=== PATIENT | female | born 1960 | race Caucasian/White ===

== ENCOUNTER → 2019-08-03 | Outpatient (CLI) | payer BC ==
--- NOTE | 2019-08-03 09:17 | US ---
EXAMINATION TYPE: US carotid duplex BILAT DATE OF EXAM: 08/03/2019 COMPARISON: Carotid JUNE 02, 2017 CLINICAL HISTORY: I65.22 Occlusion and stenosis of left carotid alannah. Smoker, left carotid bruit per patient EXAM MEASUREMENTS: RIGHT: Peak Systolic Velocity (PSV) cm/sec ----- Right CCA: 82.9 ----- Right ICA: 93.0 ----- Right ECA: 125.5 ICA/CCA ratio: 1.1 RIGHT: End Diastole cm/sec ----- Right CCA: 27.3 ----- Right ICA: 33.6 ----- Right ECA: 22.0 LEFT: Peak Systolic Velocity (PSV) cm/sec ----- Left CCA: 75.5 ----- Left ICA: 89.9 ----- Left ECA: 95.4 ICA/CCA ratio: 1.1 LEFT: End Diastole cm/sec ----- Left CCA: 21.5 ----- Left ICA: 40.3 ----- Left ECA: 20.5 VERTEBRALS (direction of flow): Right Vertebral: Antegrade; elevated PSV and may be dominant vertebral artery compared to lower flow state in left vertebral artery Left Vertebral: Antegrade Rhythm: Normal Cardoso scale images show mild to moderate peripheral plaque centered at bilateral carotid bulbs. Veloci ty measurements and ratios the visualized portion of the internal carotid arteries is within normal l imits. Incidental finding of a roughly 1.0 cm right thyroid hypoechoic nodule is noted. IMPRESSION: Mild to moderate atherosclerotic changes bilaterally without hemodynamically significant stenosis in either internal carotid artery. Just over 1 cm hypoechoic solid right thyroid nodule. Advise thyroid ultrasound study to better evaluate and characterize if this is not known finding. Criteria for Assigning % of Stenosis / Diameter reduction (Estimation based on the indirect measurements of the internal carotid artery velocities (ICA PSV). 1. Normal (no stenosis)=ICA PSV < 125 cm/s: ratio < 2.0: ICA EDV<40 cm/s. 2. Less than 50% stenosis=ICA PSV < 125 cm/s: ratio < 2.0: ICA EDV<40 cm/s. 3. 50 to 69% stenosis=ICA PSV of 125 to 230 cm/s: ration 2.0 ? 4.0: ICA EDV 40-100 cm/s. 4. Greater than 70% stenosis to near occlusion= ICA PSV > 230 cm/s: ratio > 4.0: ICA EDV > 100 cm/s. 5. Near occlusion= ICA PSV velocities may be low or undetectable: variable ratio and ICA EDV. 6. Total occlusion=unable to detect flow.
== END ==
LOC: RADUSWWP 07:48 → MERGE 09:00
PROVIDERS: ATTEND Family Medicine
DX: I65.22 Occlusion and stenosis of left carotid artery (principal)
CPT/HCPCS: 93880

== ENCOUNTER → 2019-08-03 | Outpatient (CLI) | payer BC ==
--- NOTE | 2019-08-04 10:22 | MM ---
Reason for exam: screening (asymptomatic). Last mammogram was performed 17 years and 9 months ago. History: Patient is postmenopausal and has history of endometrial cancer at age 36. Physical Findings: A clinical breast exam by your physician is recommended on an annual basis and results should be correlated with mammographic findings. MG Screening Mammo w CAD Bilateral CC and MLO view(s) were taken. No prior studies available for comparison. There are scattered fibroglandular densities. There is no discrete abnormality. No significant changes when compared with prior studies. ASSESSMENT: Negative, BI-RAD 1 RECOMMENDATION: Routine screening mammogram of both breasts in 1 year.
== END | disposition home or self-care (01) ==
LOC: RADMAMWWP 07:45 → MERGE 08:00
PROVIDERS: ATTEND Family Medicine
DX: Z12.31 Encounter for screening mammogram for malignant neoplasm of breast (principal)
CPT/HCPCS: 77067

== ENCOUNTER → 2019-08-30 | Outpatient (CLI) | payer BC ==
--- NOTE | 2019-08-30 14:33 | US ---
EXAMINATION TYPE: US thyroid st tissue head/neck DATE OF EXAM: 08/30/2019 COMPARISON: NONE CLINICAL HISTORY: E04.1 Thyroid nodule. thyroid nodules seen on carotid ultrasound GLAND SIZE: Right Lobe: 4.4 x 1.5 x 1.5 cm Overall Parenchyma: homogenous Left Lobe: 4.3 x 1.4 x 1.2 cm Overall Parenchyma: homogeneous Isthmus Thickness: 0.2 cm NODULES RIGHT: # of nodules measured on right: 1 1. 1.0 X 0.8 x 0.6 cm mixed nodule at the mid pole with well-defined margins. This nodule is wider than tall and shows intranodular vascularity. Prior size: No prior LEFT: # of nodules measured on left: 0 ISTHMUS: # of nodules measured in the isthmus: 0 Bilateral neck scanned, no evidence of lymphadenopathy. IMPRESSION: The right 1.0 cm thyroid nodule is redemonstrated as seen on the carotid ultrasound of . This does not yet meet criteria for fine-needle aspiration and follow-up is recommended in 1 2 months. No additional thyroid nodules are seen.
== END | disposition home or self-care (01) ==
LOC: RADUSWWP 12:52
PROVIDERS: ATTEND Family Medicine
DX: E04.1 Nontoxic single thyroid nodule (principal)
CPT/HCPCS: 76536

== ENCOUNTER 2019-08-31 09:52 | Day surgery (SDC) | payer BC ==
[2019-08-27 12:04] VITALS: BMI 25.7
[~2019-08-31 09:52] MED LIST: LACTATED RINGERS 1,000 ML IV SCH; LIDOCAINE 1% 20 ML VIAL (10MG/ML) FOR IV START INTRADERMA PRN
[2019-08-31 10:21] VITALS: RESP 17; TEMP 98
[2019-08-31] MEDS ORDERED: PROPOFOL 10 MG/ML 20 ML VIAL IV ONE (11:04)
--- NOTE | 2019-08-31 11:56 | P.PCN ---
Date of Procedure: 08/31/19 Description of Procedure: BRIEF HISTORY: Patient is a 59-year-old pleasant female presenting for outpatient colonoscopy for evaluation of positive Cologard. No change in bowel habits blood per rectum, abdominal pain, or family history of colon cancer. No prior colonoscopy. PROCEDURE PERFORMED: Colonoscopy with polypectomy. PREOPERATIVE DIAGNOSIS: Positive Cologard, no prior colonoscopy reported. ESTIMATED BLOOD LOSS: Minimal. IV sedation per Anesthesia. PROCEDURE: After informed consent was obtained, the patient, was brought into the endoscopy unit. IV sedation was administered by Anesthesia under continuous monitoring. Digital rectal examination was normal. Initially the Olympus CF-190 flexible video colonoscope was then inserted in the rectum, gradually advanced into the cecum without any difficulty. Careful examination was performed as the scope was gradually being withdrawn. Ileocecal valve and the appendiceal orifice were visualized and appeared normal. Prep was excellent. Mucosa of the cecum, ascending colon, transverse colon, descending colon, sigmoid colon, and rectum appeared normal. Diminutive 3 mm transverse colon polyp removed with cold forcep polypectomy. Pedunculated 1 cm sigmoid polyp removed with hot snare polypectomy. Mild scattered diverticula in the sigmoid colon. Retroflexion was performed in the rectum and no lesions were seen. The patient tolerated the procedure well. IMPRESSION: Diminutive polyp removed with cold forceps from the transverse colon. Pedunculated polyp removed with hot snare polypectomy from sigmoid colon. Mild diverticulosis. RECOMMENDATIONS: Findings of this examination were discussed with the patient in her family. Okay to resume diet. Okay to resume medications. Await pathology from polypectomy. Recommend repeat colonoscopy in 3 years pending pathology from polypectomy.
[2019-08-31 12:16] VITALS: BP 134/82; PULSE 51
== END 2019-08-31 12:24 | disposition home or self-care (01) ==
LOC: ORWHC2ENDO 09:52
PROVIDERS: ATTEND Internal Medicine
DX: D12.3 Benign neoplasm of transverse colon (principal); D12.5 Benign neoplasm of sigmoid colon; K57.30 Diverticulosis of large intestine without perforation or abscess without bleeding; I10 Essential (primary) hypertension; F17.210 Nicotine dependence, cigarettes, uncomplicated; F32.9 Major depressive disorder, single episode, unspecified; K21.9 Gastro-esophageal reflux disease without esophagitis; Z88.1 Allergy status to other antibiotic agents; Z88.0 Allergy status to penicillin; Z88.2 Allergy status to sulfonamides; Z90.710 Acquired absence of both cervix and uterus; Z98.890 Other specified postprocedural states; Z91.040 Latex allergy status; Z79.899 Other long term (current) drug therapy; Z79.2 Long term (current) use of antibiotics; Z85.41 Personal history of malignant neoplasm of cervix uteri
CPT/HCPCS: 88305; 45380; 45385; J2704

== ENCOUNTER → 2020-04-11 | Outpatient (CLI) | payer OTHER ==
--- NOTE | 2020-04-11 14:06 | XR ---
EXAMINATION TYPE: XR wrist complete LT DATE OF EXAM: 04/11/2020 CLINICAL HISTORY: Pain after injury. TECHNIQUE: Frontal, lateral, scaphoid, and oblique images of the left wrist are obtained. COMPARISON: None FINDINGS: There is no acute fracture/dislocation evident in the left wrist. Moderate to severe narro wing with sclerosis and subchondral cystic change along with moderate spurring at base of first metac arpal. The overlying soft tissue appears unremarkable. IMPRESSION: There is no acute fracture or dislocation in the left wrist.
--- NOTE | 2020-04-11 14:22 | XR ---
EXAMINATION TYPE: XR knee complete bilateral DATE OF EXAM: 04/11/2020 CLINICAL HISTORY: Pain after injury. TECHNIQUE: Three views of the bilateral knees are obtained. COMPARISON: None. FINDINGS: There is no acute fracture/dislocation evident in either knee. Mild to moderate tricompart ment joint space loss without significant spurring. No significant joint effusions bilaterally. Poste rior vascular calcification bilaterally. Mild anterior subcutaneous edema with slightly more prominen t edema anterior superior to the left patella superficial to the distal quadriceps tendon. IMPRESSION: There is no acute fracture or dislocation in either knee.
== END | disposition home or self-care (01) ==
LOC: RADXRMAIN 13:34
PROVIDERS: ATTEND Emergency Medicine
DX: S80.02XA Contusion of left knee, initial encounter (principal); S80.01XA Contusion of right knee, initial encounter; S61.502A Unspecified open wound of left wrist, initial encounter

== ENCOUNTER → 2020-05-10 | Outpatient (CLI) | payer OTHER ==
--- NOTE | 2020-05-10 21:54 | MR ---
EXAMINATION TYPE: MR knee RT wo con DATE OF EXAM: 05/10/2020 COMPARISON: Bilateral knee x-rays April 11, 2020 HISTORY: Right knee pain, injury 1 month ago. Contusion per order. TECHNIQUE: Multiplanar, multisequence images of the knee is performed without IV contrast. FINDINGS: MEDIAL MENISCUS: Anterior and posterior horns are intact without tear. LATERAL MENISCUS: Anterior and posterior horns are intact without tear. CRUCIATE LIGAMENTS: The anterior and posterior cruciate ligaments are intact and unremarkable. COLLATERAL LIGAMENTS: The medial collateral ligament and lateral collateral ligament complex are inta ct and unremarkable. EXTENSOR MECHANISM: Visualized quadriceps and patellar tendons are intact. EFFUSION: No significant suprapatellar joint effusion. POPLITEAL CYST: No popliteal/house cyst. TRICOMPARTMENT SPACES: Tricompartment joint space is fairly well-maintained. No significant spurring is seen. CARTILAGE: Tricompartment articular cartilage is preserved. BONE MARROW SIGNAL: No focal abnormal marrow signal is appreciated. OTHER: No additional significant abnormality is appreciated. IMPRESSION: No meniscal or ligamentous tear is seen. Fairly unremarkable study
== END | disposition home or self-care (01) ==
LOC: RADMRIMAIN 20:55
PROVIDERS: ATTEND Emergency Medicine
DX: S80.02XD Contusion of left knee, subsequent encounter (principal); S80.01XD Contusion of right knee, subsequent encounter; S00.83XD Contusion of other part of head, subsequent encounter; S60.212D Contusion of left wrist, subsequent encounter; S40.021D Contusion of right upper arm, subsequent encounter; S61.502D Unspecified open wound of left wrist, subsequent encounter; M54.2 Cervicalgia

== ENCOUNTER → 2020-05-16 | Outpatient (CLI) | payer OTHER ==
--- NOTE | 2020-05-16 10:11 | XR ---
EXAMINATION TYPE: XR Hip Complete RT DATE OF EXAM: 05/16/2020 COMPARISON: NONE HISTORY: 60-year-old female M25.551, fall. Pain TECHNIQUE: 2 views FINDINGS: Mild marginal spurring at the femoral head neck junction especially posteriorly. Overall hip joint sp iker is relatively maintained. No acute fracture, subluxation, dislocation. Multiple pelvic phlebolith s. IMPRESSION: Mild degenerative spurring at the right hip. Relative preservation of hip joint space. No acute osseo us abnormality seen.
== END | disposition home or self-care (01) ==
LOC: RADXRMAIN 09:14
PROVIDERS: ATTEND Emergency Medicine
DX: M25.751 Osteophyte, right hip (principal)
CPT/HCPCS: 73502

== ENCOUNTER → 2020-06-02 | Outpatient (CLI) | payer OTHER ==
--- NOTE | 2020-06-02 11:33 | XR ---
Left wrist HISTORY: Laceration, trauma 4 views of the left wrist, comparison prior exam 04/11/2020 Osteoarthritic changes present at the carpometacarpal joint of the first digit, is hypertrophic powers e loss of joint space, marginal spurring, possible geode formation. No radio opaque foreign body. No fracture or dislocation. IMPRESSION: No acute abnormality.
== END | disposition home or self-care (01) ==
LOC: RADXRMAIN 09:58
PROVIDERS: ATTEND Emergency Medicine
DX: S60.212D Contusion of left wrist, subsequent encounter (principal)

== ENCOUNTER → 2020-08-09 | Outpatient (CLI) | payer BC ==
--- NOTE | 2020-08-09 11:12 | XR ---
EXAMINATION TYPE: XR chest 2V DATE OF EXAM: 08/09/2020 COMPARISON: NONE TECHNIQUE: PA and lateral views submitted. HISTORY: Presurgical FINDINGS: The lungs are clear and there is no pneumothorax, pleural effusion, or focal pneumonia. Heart size normal. No overt failure. Atherosclerotic change of the aorta. Degenerative changes spine. Hyperinfla tion suggests COPD. IMPRESSION: 1. No acute process. Correlate for COPD.
[2020-08-09 11:30] LABS: Basophils % (A) 1 %; Eosinophils # (A) 0.1 k/uL (0-0.7); Eosinophils % (A) 2 %; Lymphocytes # (A) 1.4 k/uL (1.0-4.8); Lymphocytes % (A) 23 %; MCH 33.8 pg (25.0-35.0); MCV 99.2 fL (80.0-100.0); Mean Platelet Volume 8.2; Monocytes # (A) 0.5 k/uL (0-1.0); Monocytes % (A) 8 %; Neutrophils % (A) 64 %; Platelet Count 287 k/uL (150-450); RBC 4.44 m/uL (3.80-5.40); RDW 12.1 % (11.5-15.5); WBC 6.3 k/uL (3.8-10.6)
[2020-08-09 11:47] LABS: Appearance,Urine Clear (Clear); Bilirubin,Urine Negative (Negative); Blood,Urine Negative (Negative); Color,Urine Yellow; Glucose,Urine (UA) Negative (Negative); Ketones,Urine Negative (Negative); Leukocyte Esterase,Urine Negative (Negative); Nitrite,Urine Negative (Negative); Protein,Urine Negative (Negative); Specific Gravity,Urine 1.019 (1.001-1.035); Urobilinogen,Urine <2.0 mg/dL (<2.0)
[2020-08-09 11:52] LABS: INR 0.9 (<1.2); Partial Thromboplastin Time 23.1 sec (22.0-30.0); Prothrombin Time 9.3 sec (9.0-12.0)
== END | disposition home or self-care (01) ==
LOC: LABPAT 10:14
PROVIDERS: ATTEND Orthopaedic Surgery Orthopaedic Surgery of the Spine
DX: Z01.818 Encounter for other preprocedural examination (principal); M48.02 Spinal stenosis, cervical region
CPT/HCPCS: 36415; 71046; 80048; 81003; 85025; 85610; 85730; 86850; 86900; 86901

== ENCOUNTER → 2020-08-09 | Outpatient (CLI) | payer BC ==
--- NOTE | 2020-08-09 12:51 | US ---
EXAMINATION TYPE: US thyroid st tissue head/neck DATE OF EXAM: 08/09/2020 COMPARISON: US CLINICAL HISTORY: E04.1 Thyroid Nodule. GLAND SIZE: Right Lobe: 5.8 x 1.3 x 1.4 cm Overall Parenchyma: homogenous Left Lobe: 5.0 x 1.3 x 1.3 cm Overall Parenchyma: homogeneous Isthmus Thickness: 0.3 cm NODULES RIGHT: # of nodules measured on right: 1 1. 0.6 X 0.4 x 0.7 cm mixed cystic and solid, hypoechoic nodule, which is wider than tall, with smo oth margins, without echogenic foci. Prior size: 1.0 x 0.6 x 0.8 cm LEFT: # of nodules measured on left: 0 ISTHMUS: # of nodules measured in the isthmus: 0 Bilateral neck scanned, no evidence of lymphadenopathy. IMPRESSION: The right-sided nodule has decreased in size 2016 ACR TI-RADS LEVEL: 3 *Highest TI-RADS level nodule reported
--- NOTE | 2020-08-10 11:14 | MM ---
Reason for exam: screening (asymptomatic). Last mammogram was performed 1 year ago. History: Patient is postmenopausal and has history of endometrial cancer at age 36. Physical Findings: A clinical breast exam by your physician is recommended on an annual basis and results should be correlated with mammographic findings. MG Screening Mammo w CAD Bilateral CC and MLO view(s) were taken. Prior study comparison: August 03, 2019, bilateral MG screening mammo w CAD. October 27, 2001, bilateral screening mammogram. There are scattered fibroglandular densities. There is chronic nodularity in the right breast. There is no discrete abnormality. ASSESSMENT: Negative, BI-RAD 1 RECOMMENDATION: Routine screening mammogram of both breasts in 1 year.
== END | disposition home or self-care (01) ==
LOC: RADMAMWWP 09:37
PROVIDERS: ATTEND Family Medicine
DX: Z12.31 Encounter for screening mammogram for malignant neoplasm of breast (principal); E04.1 Nontoxic single thyroid nodule
CPT/HCPCS: 76536; 77067

== ENCOUNTER 2020-08-14 11:32 | Observation (INO) | payer BC, OTHER ==
[2020-08-10 10:19] VITALS: BMI 25.0
[~2020-08-14 11:32] MED LIST changes: +LIDOCAINE 1% (10MG/ML) FOR IV START INTRADERMA PRN; -LIDOCAINE 1% 20 ML VIAL (10MG/ML) FOR IV START INTRADERMA PRN; +ONDANSETRON 4 MG/2 ML VIAL IVP ONE; +ceFAZolin 1,000 MG in SODIUM CHLORIDE 0.9% IRRIGATIO 1,000 ML IRRIGATION PRN
[2020-08-14] MEDS ORDERED: MIDAZOLAM 2 MG/2 ML VIAL ONE (14:39)
[2020-08-14] MEDS ORDERED: SUCCINYLCHOLINE CHLORIDE 100 MG/5 ML SYR IV ONE (14:39)
[2020-08-14] MEDS ORDERED: PHENYLEPHRINE 10 MG/ML VIAL ONE (14:39)
[2020-08-14] MEDS ORDERED: fentaNYL (PF) 50 MCG/ML 2 ML AMP ONE (14:39)
[2020-08-14] MEDS ORDERED: LIDOCAINE 1% INJ 10MG/ML (20 ML MDV) ONE (14:39)
[2020-08-14] MEDS ORDERED: PROPOFOL 10 MG/ML 20 ML VIAL IV ONE (14:39)
[2020-08-14] MEDS ORDERED: HYDROmorphone (PF) 1 MG/ML ONE (14:39)
[2020-08-14] MEDS ORDERED: ePHEDrine SULFATE/0.9% NACL/PF 50 MG/5 ML SYRINGE IV ONE (14:39)
[2020-08-14] MEDS ORDERED: GELATIN SPONGE,ABSORB (LARGE) 1 EACH SPONGE TOPICAL ONE (14:42)
[2020-08-14] MEDS ORDERED: THROMBIN (BOVINE) 5,000 UNIT VIAL TOPICAL ONE (14:42)
[2020-08-14] MEDS ORDERED: LIDOCAINE 0.5%-EPI 1:200,000 50 ML VIAL SQ ONE (14:42)
[2020-08-14] MEDS ORDERED: LACTATED RINGERS 1,000 ML IV ONE ×3 (16:02→17:20)
--- NOTE | 2020-08-14 17:03 | XR ---
EXAMINATION TYPE: XR cervical spine 1V DATE OF EXAM: 08/14/2020 COMPARISON: Cervical spine x-ray earlier today. HISTORY: Neck pain. TECHNIQUE: Cross table lateral view of cervical spine is obtained intraoperatively. FINDINGS: There is new Anterior fusion plate and artificial disc material C3-C6 levels. Alignment is satisfactory at these levels on the intraoperative crosstable lateral view. Slightly oblique position ing noted. Partial visualization of endotracheal tube. IMPRESSION: As above.
[2020-08-14] MEDS ORDERED: ACETAMINOPHEN TAB 325 MG TAB PO PRN (17:06)
[2020-08-14] MEDS: HYDROmorphone 0.5 MG/0.5 ML SYRINGE IVP PRN ×6 (17:15→23:46)
--- NOTE | 2020-08-14 17:23 | P.OP ---
Date of Procedure: 08/14/20 Preoperative Diagnosis: Herniated nucleus pulposis C3 4 C4 5 C5 6, cervical stenosis C3 through C6, neck pain, upper extremity radiculopathy, degenerative disc disease Postoperative Diagnosis: Same Anesthesia: GETA Pathology: none sent Description of Procedure: BRIEF OPERATIVE NOTE Preoperative Diagnosis:Herniated nucleus pulposis C3 4 C4 5 C5 6, cervical stenosis C3 through C6, neck pain, upper extremity radiculopathy, degenerative disc disease Postoperative Diagnosis:Herniated nucleus pulposis C3 4 C4 5 C5 6, cervical stenosis C3 through C6, neck pain, upper extremity radiculopathy, degenerative disc disease Procedure: Anterior cervical decompression and fusion C3 4 C4 5 C5 6 Placement of interbody graft C3 4 C4 5 C5 6 Application of anterior cervical plate C3 4 5 and 6 Surgeon: Dr. Espitia Machinery Rigger: Rich HEATH who is present throughout the entire the case persistence during positioning, dissection, exposure, visualization, and all crucial elements of the case as well as closure. Anesthesia: General anesthesia Estimated blood loss: Approximately 75 mL Complications: None apparent Components implanted: K2M Ida anterior cervical plate system with screws and Vikos interbody allograft bone graft with 1 mL of DBX bone putty Disposition: To recovery room in good stable condition. OPERATIVE INDICATIONS The patient has had long-standing issues in their neck and upper extremities. She has been having worsening pain despite her conservative care. She has radicular symptoms at her right upper extremity which correlated with her findings of disc herniation and stenosis at C3 4 C4 5 and C5 6. Patient has some disc degeneration at C6 7 and some left disc protrusion and we discussed that as well. I felt that her symptoms were most consistent with the levels at C3 4 C4 5 and C5 6 and decided to leave C6 7 intact. The patient has been through conservative treatment. We discussed various treatment options including surgery, and the patient wishes to proceed with surgery We discussed the risk, patient's alternatives and benefits of surgery including but not limited to, risk of bleeding risk of infection, risk of need for further surger y, risk of decreased, loss of motion, muscle function, malunion nonunion, hardware failure, nerve damage, paralysis, heart attack, and . OPERATIVE SUMMARY After discussing all the risks, patient alternatives and benefits at length, the patient elected to proceed with surgical intervention, signed informed consent, and presented for their procedure. The patient was seen and examined in the preoperative holding area and the surgical site was marked. The patient was given antibiotics and brought to the operating room. The patient was positioned on the operating room table in a supine position being careful to pad any bony prominences and pressure points. The patient was sedated and intubated by anesthesia in standard fashion. Once the airway and C- spine were stabilized the patient's arms were padded and tucked at her side, with her shoulders gently taped. The head was placed in a donut pad with the neck in good neutral alignment and position. We were careful to maintain the patient's cervical spine and good neutral alignment and position throughout. The patient was prepped and draped in a normal standard fashion. An appropriate timeout and keystone protocol performed. We were able to proceed with the surgery. The local wound area was infiltrated with local anesthetic. An incision was made transversely approximately 2-1/2 cm over the appropriate levels over C5. Dissection was taken down subcutaneously to the level of the platysma which was split in line with its fibers. Dissection was taken with a carotid approach, with the trachea and esophagus medial and the carotid sheath laterally. We dissected down to the anterior surface of the vertebral bodies. Intraoperative x-ray was taken which showed a marker at the appropriate level at C3 4. With the appropriate level positively confirmed, we were able to proceed with discectomy at the appropriate levels guarding at C3 4 and C4 5 and C5 6. All of the operative levels were exposed appropriately. The patient had all their twitches back, and there was no evidence of recurrent laryngeal issue. The wound was copiously irrigated and suctioned dry as had been done periodically throughout the case. At the appropriate level/levels, I established an annulotomy with an 11 blade scalpel. A discectomy was performed with a combination of pituitary rongeurs, curettes, a high-speed bur, and Kerrison rongeurs. The posterior longitudinal ligament was taken down as were any posterior osteophytes. This gave good central and bilateral foraminal decompression. There is no evidence of any dural tear or leak. As able get excellent central and bilateral foraminal decompression at C3 4 C4 5 and C5 6 The endplates were prepared with a high-speed bur. With the endplates in good parallel position, I was able to size for the appropriate size interbody graft. The wound was irrigated and suctioned dry the graft was prepared and malleted into position. It had good alignment and position with the anterior surface flush with the anterior surface of the vertebral bodies. This was done similarly the appropriate levels at C3 4 C4 5 and C5 6. With the grafts intact, I was able to measure and contour and appropriate sized plate. The plate was positioned at the midline over the appropriate levels from C3 to C6. Screw holes were established with a hand drill and drill guide. Screws were placed in good alignment and position with excellent bony purchase. They were seated under the locking device. The construct was checked and found to be stable. Intraoperative x-ray was taken which showed good alignment and position of the implants at the appropriate levels. There was no evidence of any dural tear or leak. Good hemostasis was maintained. The wound was copiously irrigated and suctioned dry as had been done periodically throughout the case. The platysma was closed with absorbable suture. The subcutaneous tissue was closed. The subcuticular tissue was closed with absorbable suture. The wound was cleaned and dried and dressed appropriately. A soft cervical collar was placed appropriately. The patient was woken up by anesthesia, extubated, transferred back gently to their hospital bed and brought to the recovery room in good stable condition. The patient will be admitted to the hospital for appropriate postoperative care, medical management and monitoring. We will continue to follow them closely about the postoperative course.
[2020-08-14] MEDS ORDERED: ONDANSETRON 4 MG/2 ML VIAL IVP ONE (17:40)
[2020-08-14] MEDS ORDERED: diphenhydrAMINE 50 MG/ML 1 ML VIAL IVP ONE (18:00)
[2020-08-14] MEDS: BENZOCAINE/MENTHOL LOZENG 1 EACH LOZENGE MUCOUS MEM PRN ×2 (20:27→23:30)
[2020-08-14] MEDS ORDERED: ONDANSETRON 4 MG/2 ML VIAL IVP STA (20:34)
[2020-08-14] MEDS: HYDROcodone/APAP 5-325MG 1 EACH TAB PO PRN (21:31)
[2020-08-14] MEDS: PANTOPRAZOLE 40 MG/10 ML VIAL IVP SCH (23:04)
[2020-08-14] MEDS: SODIUM CHLORIDE 0.9% 1,000 ML IV SCH (23:05)
[2020-08-15] MEDS: HYDROcodone/APAP 5-325MG 1 EACH TAB PO PRN ×5 (01:02→23:43)
[2020-08-15] MEDS: BENZOCAINE/MENTHOL LOZENG 1 EACH LOZENGE MUCOUS MEM PRN ×4 (03:06→23:43)
[2020-08-15] MEDS: HYDROmorphone 0.5 MG/0.5 ML SYRINGE IVP PRN ×2 (03:07→21:03)
[2020-08-15] MEDS: ONDANSETRON 4 MG/2 ML VIAL IVP PRN ×3 (04:43→21:15)
[2020-08-15] MEDS ORDERED: HYDROmorphone 0.5 MG/0.5 ML SYRINGE IVP STA (04:55)
[2020-08-15] MEDS ORDERED: ALPRAZolam 0.5 MG TAB PO STA (04:55)
[2020-08-15] MEDS: SODIUM CHLORIDE 0.9% 1,000 ML IV SCH ×2 (06:24→21:05)
[2020-08-15] MEDS ORDERED: DEXAMETHASONE SOD PHOSPHATE 10 MG/ML 1 ML VIAL IV STA (06:39)
[2020-08-15] MEDS ORDERED: KETOROLAC 15 MG/ML 1 ML VIAL IVP STA (06:39)
[2020-08-15] MEDS ORDERED: amLODIPine 5 MG TAB PO SCH (09:00)
[2020-08-15] MEDS ORDERED: LOSARTAN 50 MG TAB PO SCH (09:00)
[2020-08-15] MEDS: PANTOPRAZOLE 40 MG/10 ML VIAL IVP SCH ×2 (09:15→21:03)
[2020-08-15] MEDS: SENNOSIDES-DOCUSATE SODIUM 1 EACH TAB PO SCH (09:16)
--- NOTE | 2020-08-15 10:24 | XR ---
EXAMINATION TYPE: XR cervical spine 1V DATE OF EXAM: 08/14/2020 COMPARISON: NONE HISTORY: Intraoperative localization TECHNIQUE: One view submitted FINDINGS: Metallic surgical instrument lies anterior to the C3-C4 disc space. Multilevel degenerative changes seen. Limited prevertebral soft tissue structures. IMPRESSION: Intraoperative localization
--- NOTE | 2020-08-15 13:09 | P.PN ---
Progress Note - Text Progress Note Date: 08/15/20 Orthopedic Spine History of present illness: Patient is a pleasant 60-year-old female who is seen at the bedside following anterior cervical decompression and fusion performed yesterday. Patient states they are doing ok postsurgically. She was having significant difficulty with reflux and pain control throughout the night last night. She states she did not get any significant sleep. She was having some difficulty with swallowing as well that she feels is improving. She has not eaten much food today. She does have some generalized swelling about her surgical site. She has had some improvement after receiving a dose of dexamethasone. She does admit to continued difficulty with reflux. She is currently drinking milk at the bedside without difficulty. She feels her pain has been improving today as compared to last night. She is not currently complaining of any significant upper extremity radiculopathy symptoms or weakness. She did receive IV dosing of antibiotic medication prior to and after surgical intervention. Patient does have a hi story of recent was in tooth removal is not currently experiencing any difficulty in this regard. Currently does not complain of nausea, vomiting, fever, or chills. Patient is voiding without difficulty. Physical Exam Cervical Fusion: Status post surgical day number 1 Patient is awake, alert, and oriented 3 Vital signs stable Good chest excursion with deep inspiration and expiration Some generalized swelling around the surgical site Dressing over the anterior cervical spine is clean, dry, and intact No significant bruising, erythema, or obvious sign of infection around the surgical site No pain with palpation around the surgical site Clinical Biostatistics Director strength, thumb strength, interosseous strength, biceps strength, triceps strength, and shoulder strength positive sustained bilaterally Patient is able to change positions and perform adequate range of motion of the bilateral upper extremities without difficulty No pain with palpation of the posterior cervical spine or trapezius bilaterally Soft cervical collar at the bedside Assessment: Status post C3-4, C4-5, and C5-6 anterior cervical decompression and fusion Cervical pain Some swelling at the surgical site postoperatively Recent wisdom tooth removal Reflux Hypertension Heart disease Plan: 1. Ambulate as tolerated; work with Physical Therapy to increase mobilization 2. Continue pain control 3. Patient may shower with Optifoam dressing; patient may remove Optifoam in 4 days and shower without a dressing at that time 4. We will plan for consultation with medicine for postoperative medical management for her other medical diagnoses including hypertension, heart disease, and reflux 5. We will continue to follow the patient closely; if the patient's pain continues to improve and she is able to continue improving her drinking and eating without difficulty, we'll plan for discharge home tomorrow, total 2019 Patient can follow-up with Rich Grimaldo PA-C or Dr. Jon Espitia at [facility] in 2-3 weeks following discharge
--- NOTE | 2020-08-15 15:41 | P.CONS ---
History of Present Illness - Reason for Consult Hypertension, gastroesophageal reflux disease - History of Present Illness Patient is a pleasant 60-year-old female admitted for cervical decompression and fusion surgery which was done yesterday. Patient doesn't have any Trinh catheter patient denied any fever chills nausea vomiting. Patient was comparing of acid reflux symptoms much more pronounced and severe last night patient was on Decadron as well as Toradol for pain. Patient did not pass gas yet but does have bowel sounds. Patient pain is well controlled but is comparing of severe sore throat. Patient had an is elevated at this time. Patient does have history of hypertension and is on amlodipine as well as angiotensin receptor avila which is losartan at 150 mg which will be cut down to 100 mg. Patient blood pressure is bit elevated will increase the dose of Norvasc to 10 mg from 5 mg. Review of Systems REVIEW OF SYSTEMS: CONSTITUTIONAL: No fever, no malaise, no fatigue. HEENT: No recent visual problems or hearing problems. Denied any sore throat. CARDIOVASCULAR: No chest pain, orthopnea, PND, no palpitations, no syncope. PULMONARY: No shortness of breath, no cough, no hemoptysis. GASTROINTESTINAL: No diarrhea, no nausea, no vomiting, no abdominal pain. NEUROLOGICAL: No headaches, no weakness, no numbness. HEMATOLOGICAL: Denies any bleeding or petechiae. GENITOURINARY: Denies any burning micturition, frequency, or urgency. MUSCULOSKELETAL/RHEUMATOLOGICAL: Denies any joint pain, swelling, or any muscle pain. ENDOCRINE: Denies any polyuria or polydipsia. The rest of the 14-point review of systems is negative. Past Medical History Past Medical History: Cancer, Hypertension Additional Past Medical History / Comment(s): Hx cervical cancer in her 20's, had abcessed tooth removed 08/07/20, was on Clindamycin, completed today. History of Any Multi-Drug Resistant Organisms: None Reported Past Surgical History: Hysterectomy Additional Past Surgical History / Comment(s): Conization of cervix, deviated septum repair. Past Anesthesia/Blood Transfusion Reactions: No Reported Reaction Smoking Status: Current every day smoker - Past Family History Mother Family Medical History: No Reported History Medications and Allergies Home Medications Medication Instructions Recorded Confirmed Type Olmesartan Medoxomil [Benicar] 40 mg PO QAM 12/27/19 12/14/20 History amLODIPine [Norvasc] 5 mg PO QAM 08/10/20 08/14/20 History Allergies Allergy/AdvReac Type Severity Reaction Status Date / Time amoxicillin trihydrate AdvReac vaginal Verified 08/14/20 17:17 [From Augmentin] infection cephalexin monohydrate AdvReac vaginal Verified 08/14/20 17:17 [From Keflex] infection Penicillins AdvReac vaginal Verified 08/14/20 17:17 infection potassium clavulanate AdvReac vaginal Verified 08/14/20 17:17 [From Augmentin] infection sulfamethoxazole AdvReac vaginal Verified 08/14/20 17:17 [From Bactrim] infection trimethoprim [From Bactrim] AdvReac vaginal Verified 08/14/20 17:17 infection Physical Exam Vitals: Vital Signs Temp Pulse Pulse Resp BP Pulse Ox 08/15/20 12:08 98.2 F 83 14 162/81 95 08/15/20 08:00 98.7 F 67 16 122/77 93 L 08/15/20 02:00 98.3 F 86 18 150/80 93 L 08/14/20 23:15 98.2 F 82 18 154/78 93 L 08/14/20 22:15 98.1 F 77 18 145/79 97 08/14/20 21:15 97.2 F L 67 18 139/75 98 08/14/20 20:45 66 18 137/71 98 08/14/20 20:00 96.8 F L 74 16 118/70 97 08/14/20 19:45 61 16 118/69 96 08/14/20 19:30 65 16 115/68 95 08/14/20 19:00 63 16 128/75 99 08/14/20 18:45 60 16 130/61 99 08/14/20 18:24 61 16 134/63 98 08/14/20 18:09 62 16 123/59 96 08/14/20 17:54 64 16 136/62 99 08/14/20 17:39 59 L 16 139/68 95 08/14/20 17:24 69 16 149/76 97 08/14/20 17:08 97 F L 93 18 142/78 98 Intake and Output 08/15/20 08/15/20 08/15/20 06:59 14:59 22:59 Output Total 200 Balance -200 Output: Urine 200 Other: # Voids 1 PHYSICAL EXAMINATION: GENERAL: The patient is alert and oriented x3, not in any acute distress. Well developed, well nourished. HEENT: Pupils are round and equally reacting to light. EOMI. No scleral icterus. No conjunctival pallor. Normocephalic, atraumatic. No pharyngeal erythema. No thyromegaly. CARDIOVASCULAR: S1 and S2 present. No murmurs, rubs, or gallops. PULMONARY: Chest is clear to auscultation, no wheezing or crackles. ABDOMEN: Soft, nontender, nondistended, normoactive bowel sounds. No palpable organomegaly. MUSCULOSKELETAL: No joint swelling or deformity. EXTREMITIES: No cyanosis, clubbing, or pedal edema. NEUROLOGICAL: Gross neurological examination did not reveal any focal deficits. SKIN: No rashes. Patient has postsurgical packing on the anterior aspect of the neck Assessment and Plan Plan: - gastroesophageal reflux disease secondary to Toradol and Decadron which were discontinued and we'll increase the dose of Protonix to twice a day. We'll use Cepacol for the comfort for her sore throat -Hypertension: Elevated blood pressures, we'll decrease the dose of losartan increase the dose of amlodipine to 5 mg losartan will be decreased to 100 mg daily -Cervical fusion surgery pain management and DVT prophylaxis as per primary service -Depression -Nicotine abuse: Counseling was provided
[2020-08-16] MEDS: HYDROmorphone 0.5 MG/0.5 ML SYRINGE IVP PRN (02:27)
[2020-08-16] MEDS: HYDROcodone/APAP 5-325MG 1 EACH TAB PO PRN ×3 (05:26→16:06)
[2020-08-16] MEDS: SENNOSIDES-DOCUSATE SODIUM 1 EACH TAB PO SCH (08:56)
[2020-08-16] MEDS: PANTOPRAZOLE 40 MG/10 ML VIAL IVP SCH (08:57)
[2020-08-16] MEDS ORDERED: amLODIPine 10 MG TAB PO SCH (09:00)
[2020-08-16] MEDS ORDERED: LOSARTAN 50 MG TAB PO SCH (09:00)
[2020-08-16 09:43] VITALS: RESP 18
[2020-08-16 10:10] LABS: Basophils % (A) 0 %; Eosinophils # (A) 0.1 k/uL (0-0.7); Eosinophils % (A) 1 %; HCT 31.7 % (34.0-46.0); Lymphocytes # (A) 1.8 k/uL (1.0-4.8); Lymphocytes % (A) 20 %; MCH 32.7 pg (25.0-35.0); MCHC 33.3 g/dL (31.0-37.0); Mean Platelet Volume 8.7; Monocytes # (A) 0.5 k/uL (0-1.0); Monocytes % (A) 6 %; Neutrophils # (A) 6.6 k/uL (1.3-7.7); Neutrophils % (A) 72 %; Platelet Count 207 k/uL (150-450); RBC 3.23 m/uL (3.80-5.40); RDW 12.5 % (11.5-15.5); WBC 9.1 k/uL (3.8-10.6)
[2020-08-16 10:20] LABS: African American GFR (CKD) >90 (>60 ml/min/1.73 sqM); Anion Gap 3 mmol/L; Blood Urea Nitrogen 15 mg/dL (7-17); Calcium 8.4 mg/dL (8.4-10.2); Carbon Dioxide 25 mmol/L (22-30); Chloride 110 mmol/L (98-107); Glucose 145 mg/dL (74-99); Non-African American GFR(CKD) >90 (>60 ml/min/1.73 sqM); Potassium 3.7 mmol/L (3.5-5.1); Sodium 138 mmol/L (137-145)
[2020-08-16 10:24] LABS: HGB 10.6 gm/dL (11.4-16.0)
--- NOTE | 2020-08-16 11:52 | P.DS ---
Providers Date of admission: 08/15/20 04:10 Expected date of discharge: 08/16/20 Attending physician: Delbert Espitia Consults: 08/16/20 08:52 Consult Physician Routine Consulting Provider: Evan Lopez Consult Reason/Comments: medical management Do you want consulting provider notified?: Already Contacted Primary care physician: Frank Park - Discharge Diagnosis(es) (1) Cervical stenosis of spinal canal Current Visit: Yes Status: Acute (2) Cervical herniated disc Current Visit: Yes Status: Acute (3) S/P cervical spinal fusion Current Visit: Yes Status: Acute (4) Radiculopathy affecting upper extremity Current Visit: Yes Status: Acute (5) Cervicalgia Current Visit: Yes Status: Acute (6) Degenerative cervical disc Current Visit: Yes Status: Acute (7) Hypertension Current Visit: Yes Status: Acute (8) Acid reflux Current Visit: Yes Status: Acute (9) [place] teeth removed Current Visit: Yes Status: Acute (10) Heart disease Current Visit: Yes Status: Acute Hospital Course: This is a pleasant 60-year-old female who presented with C3-4, C4-5, and C5-6 herniated nucleus pulposus with cervical stenosis, cervicalgia with upper extremity radiculopathy, and cervical degenerative disc disease who failed outpatient conservative therapy. She was admitted for a C3-4, C4-5, and C5-6 anterior cervical decompression and fusion. She had some difficulty with acid reflux overnight following her surgery did not get much sleep. She has been seen by medicine and has been started on Protonix twice a day. She was able to sleep better last night. She has some swelling at her surgical site that has improved as compared to yesterday. She is able to eat all of her food yesterday without significant difficulty. She does admit to some pain with swallowing but is able to swallow without difficulty. She is drinking without difficulty. She is breathing without difficulty. She has been using her incentive spirometer without difficulty. She is not currently complaining of significant cervical pain or upper extremity radiculopathy symptoms. She does feel she will be ready for discharge home today. The patient has continued to improve postoperatively. Condition on day of discharge stable. Patient will be discharged home. Patient was cleared preoperatively for surgery by Dr. Park. Patient currently denies any nausea, vomiting, fever, or chills. Patient is voiding freely without difficulty. Patient may shower Optifoam dressing intact. Patient may remove Optifoam dressing in 3 days and shower without a dressing at that time. Patient should refrain from driving until at least after their first follow-up appointment in the office. Patient should avoid excessive neck flexion, extension, rotation, and lateral sidebending; no overhead lifting; no lifting greater than 10 pounds. MAPS has been reviewed today, 08/16/2020, with an Overall Overdose Risk Score of 190. An "Opiod Start Talking" Form has been signed and placed in the patient's chart. A prescription has been written for [place] 5 mg/325 mg 1 tab every 4 hours as needed for pain, dispense #42. Patient should avoid anti-inflammatory medications over the next 6 weeks postoperatively. Patient may resume other previously prescribed home medications. Patient's other medical diagnoses include acid reflux, hypertension, and heart disease. She also recently had a wisdom tooth removed. Physical Exam on day of discharge: Patient is awake, alert, and oriented 3 Vital signs stable Good chest excursion with deep inspiration and expiration Abdomen soft nontender No signs or symptoms of DVT; no calf pain Full range of motion of the cervical spine with adequate flexion, extension, and bilateral rotation Table Maker strength, thumb strength, interosseous strength, biceps strength, triceps strength, and shoulder strength positive sustained bilaterally Soft cervical collar not currently intact Some swelling around the surgical site which has improved as compared to yesterday No significant pain with palpation around the surgical site Dressing over the surgical site isclean, dry, and intact; no erythema, purulence, or signs of infection No active drainage from the surgical site Procedures: C3-4, C4-5, and C5-6 anterior cervical decompression and fusion Patient Condition at Discharge: Stable Plan - Discharge Summary Discharge Rx Participant: Yes New Discharge Prescriptions: New HYDROcodone/APAP 5-325MG [[place] 5] 1 each PO Q4HR PRN #42 tab PRN Reason: Pain No Action Olmesartan Medoxomil [Benicar] 40 mg PO QAM amLODIPine [Norvasc] 5 mg PO QAM Discharge Medication List Olmesartan Medoxomil [Benicar] 40 mg PO QAM 08/27/19 [History] amLODIPine [Norvasc] 5 mg PO QAM 08/10/20 [History] HYDROcodone/APAP 5-325MG [[place] 5] 1 each PO Q4HR PRN #42 tab 08/16/20 [Rx] Follow up Appointment(s)/Referral(s): Rich Grimaldo, BARBARA [PHYSICIAN [employer] TEAM LEADER] - 2 Weeks (Patient may follow-up with Rich Grimaldo PA-C or Dr. Jon Espitia at [facility] in 2-3 weeks following discharge. ) Activity/Diet/Wound Care/Special Instructions: 1. Patient may shower with Optifoam dressing intact. 2. Patient may remove Optifoam dressing in 4 days and shower without a dressing at that time. 3. Patient may wear soft cervical collar for comfort support as needed. 4. Patient should refrain from driving until at least after their first follow- up appointment in the office. 5. Patient should avoid excessive cervical flexion, extension, and side bending; avoid overhead lifting; no lifting greater than 10 pounds 6. Take medications as prescribed 7. Do not soak in tub Discharge Disposition: HOME SELF-CARE
[2020-08-16] MEDS: ONDANSETRON 4 MG/2 ML VIAL IVP PRN (13:41)
[2020-08-16 14:03] VITALS: BP 115/67; PULSE 58; TEMP 98.2
--- NOTE | 2020-08-16 14:44 | P.PN ---
Subjective Progress Note Date: 08/16/20 Reason for Consult Hypertension, gastroesophageal reflux disease - History of Present Illness Patient is a pleasant 60-year-old female admitted for cervical decompression and fusion surgery which was done yesterday. Patient doesn't have any Trinh fidel ter patient denied any fever chills nausea vomiting. Patient was comparing of acid reflux symptoms much more pronounced and severe last night patient was on Decadron as well as Toradol for pain. Patient did not pass gas yet but does have bowel sounds. Patient pain is well controlled but is comparing of severe sore throat. Patient had an is elevated at this time. Patient does have history of hypertension and is on amlodipine as well as angiotensin receptor avila which is losartan at 150 mg which will be cut down to 100 mg. Patient blood pressure is bit elevated will increase the dose of Norvasc to 10 mg from 5 mg. 08/16/2020 She was seen and evaluated in follow-up with no acute overnight issues. Patient's blood pressure more stable and is maintained on Norvasc 10 mg and losartan was decreased to 100 mg daily and will continue with this. Patient states she has some swelling noted on her neck and sore throat with swallowing although is able to swallow and tolerate food and medications. Patient does not have a neck brace on. Patient states that she has been using her incentive spirometer and reinstructed her to continue using this at least 10 times every hour while awake along with increasing activity as tolerated. Patient states she is passing gas although has not had a bowel movement and is urinating with no difficulties. Review of systems: Constitutional: No reports of fatigue, fever, or chills Cardiovascular: No reports of chest pain or palpitations Respiratory: No reports of shortness of breath or cough GI: No reports of nausea, vomiting, or diarrhea : No reports of dysuria or retention Neurovascular: No reports of weakness or numbness Neck: Reports swelling and feeling of fullness and discomfort when swallowing All medications have been reviewed Objective - Vital Signs Vital signs: Vital Signs Temp 98.3 F 08/16/20 08:20 Pulse 66 08/16/20 08:20 Resp 18 08/16/20 08:20 BP 117/73 08/16/20 08:20 Pulse Ox 96 08/16/20 08:20 Intake & Output 08/15/20 08/16/20 08/16/20 18:59 06:59 18:59 Other: Voiding Method Toilet # Voids 1 1 - Exam GENERAL: The patient is alert and oriented x3, not in any acute distress. Well developed, well nourished. HEENT: Pupils are round and equally reacting to light. EOMI. No scleral icterus. No conjunctival pallor. Normocephalic, atraumatic. No pharyngeal erythema. No thyromegaly. CARDIOVASCULAR: S1 and S2 present. No murmurs, rubs, or gallops. PULMONARY: Chest is clear to auscultation, no wheezing or crackles. ABDOMEN: Soft, nontender, nondistended, normoactive bowel sounds. No palpable organomegaly. MUSCULOSKELETAL: No joint swelling or deformity. EXTREMITIES: No cyanosis, clubbing, or pedal edema. NEUROLOGICAL: Gross neurological examination did not reveal any focal deficits. SKIN: No rashes. Patient has postsurgical dressing noted on the anterior aspect of the neck that is dry and intact - Labs CBC & Chem 7: 08/16/20 09:30 08/16/20 09:30 Assessment and Plan Assessment: -gastroesophageal reflux disease secondary to Toradol and Decadron which were discontinued and we'll increase the dose of Protonix to twice a day. We'll use Cepacol for the comfort for her sore throat -Hypertension: Elevated blood pressures, we'll decrease the dose of losartan increase the dose of amlodipine to 10 mg losartan will be decreased to 100 mg daily, will continue with this in the outpatient setting -Cervical fusion surgery pain management and DVT prophylaxis as per primary service -Depression -Nicotine abuse: Counseling was provided Plan: New current medications and continue to monitor blood pressure. Losartan has been decreased to 100 mg and Norvasc increased to 10 mg and will continue with this regimen upon discharge. Current blood pressure 117/73 and heart rate is 66 . Continue with Cepacol lozenges for sore throat. Educated the patient to continue using incentive spirometer at least 10 times every hour while awake. Continue to avoid tobacco use. Will continue to follow along with orthopedic surgery during hospitalization. Further recommendations to follow. Possible discharge today.
== END 2020-08-16 18:42 | disposition home or self-care (01) ==
LOC: OR 11:32 → 6PED 17:16 → OR 08-15 04:10
PROVIDERS: ADMIT Orthopaedic Surgery Orthopaedic Surgery of the Spine; ATTEND Orthopaedic Surgery Orthopaedic Surgery of the Spine
DX: M48.02 Spinal stenosis, cervical region (principal); M50.11 Cervical disc disorder with radiculopathy, high cervical region; M50.122 Cervical disc disorder at C5-C6 level with radiculopathy; K21.9 Gastro-esophageal reflux disease without esophagitis; I10 Essential (primary) hypertension; I51.9 Heart disease, unspecified; J02.9 Acute pharyngitis, unspecified; M50.221 Other cervical disc displacement at C4-C5 level; M50.222 Other cervical disc displacement at C5-C6 level; F17.210 Nicotine dependence, cigarettes, uncomplicated; F32.9 Major depressive disorder, single episode, unspecified; Z79.899 Other long term (current) drug therapy; Z85.41 Personal history of malignant neoplasm of cervix uteri; Z88.0 Allergy status to penicillin; Z88.2 Allergy status to sulfonamides; Z88.1 Allergy status to other antibiotic agents; Z90.710 Acquired absence of both cervix and uterus
CPT/HCPCS: 80048; 85025; 72020; 22551; 22552 ×2; 22845; 20930; G0378 ×2; C1713 ×2; C1762 ×2; J2250; J1200; J1100; J2370; J0690 ×3; J2405 ×3; J2001; J3010; J1170 ×4; J1885; J0330; J2704; C9113 ×3; 86850; 86900; 86901

== ENCOUNTER 2020-08-30 15:12 | Inpatient (IN) | payer BC, OTHER ==
--- NOTE | 2020-08-30 16:04 | ED ---
General Adult HPI - General Chief complaint: Abdominal Pain Stated complaint: Post Op Vomiting,Constipated Source: patient Mode of arrival: wheelchair Limitations: no limitations - History of Present Illness Initial comments: This a 60-year-old female who presents emergency Department complaining of abdominal pain. Patient also states she has been nauseated today and had one e pisode of vomiting after she took milk of magnesia. Patient states she had neck surgery on August 14 and since she's been very constipated. Patient states she hasn't had a bowel movement in days and she hasn't been urinating normally as well. Patient states her lower abdomen and suprapubic region is extremely tender. Patient denies any upper abdominal pain patient denies chest pain difficulty breathing shortest breath per patient denies any fever chills or cough per patient denies any back pain. - Related Data Home Medications Medication Instructions Recorded Confirmed Pantoprazole Sodium [Protonix] 40 mg PO DAILY 08/30/20 08/30/20 Previous Rx's Medication Instructions Recorded Sennosides-Docusate Sodium 1 each PO DAILY PRN #30 tab 08/16/20 [Senokot-S] amLODIPine [Norvasc] 10 mg PO QAM 30 Days #30 tab 08/16/20 Allergies Allergy/AdvReac Type Severity Reaction Status Date / Time losartan Allergy Rash/Hives Verified 08/30/20 17:52 amoxicillin trihydrate AdvReac vaginal Verified 08/30/20 17:52 [From Augmentin] infection cephalexin monohydrate AdvReac vaginal Verified 08/30/20 17:52 [From Keflex] infection lisinopril AdvReac Rash/Hives Verified 08/30/20 17:52 Penicillins AdvReac vaginal Verified 08/30/20 17:52 infection potassium clavulanate AdvReac vaginal Verified 08/30/20 17:52 [From Augmentin] infection sulfamethoxazole AdvReac vaginal Verified 08/30/20 17:52 [From Bactrim] infection trimethoprim [From Bactrim] AdvReac vaginal Verified 08/30/20 17:52 infection Review of Systems ROS Statement: Those systems with pertinent positive or pertinent negative responses have been documented in the HPI. ROS Other: All systems not noted in ROS Statement are negative. Past Medical History Past Medical History: Cancer, Hypertension Additional Past Medical History / Comment(s): Hx cervical cancer in her 20's, had abcessed tooth removed 08/07/20, was on Clindamycin, completed today. History of Any Multi-Drug Resistant Organisms: None Reported Past Surgical History: Hysterectomy Additional Past Surgical History / Comment(s): Conization of cervix, deviated septum repair. Past Anesthesia/Blood Transfusion Reactions: No Reported Reaction Past Psychological History: Anxiety, Depression Smoking Status: Current every day smoker Past Alcohol Use History: None Reported Past Drug Use History: None Reported - Past Family History Mother Family Medical History: No Reported History General Exam - General Exam Comments Initial Comments: GENERAL: Patient is well-developed and well-nourished. Patient is nontoxic and well- hydrated and is in moderate distress. ENT: Neck is soft and supple. No significant lymphadenopathy is noted. Oropharynx is clear. Moist mucous membranes. Neck has full range of motion without eliciting any pain. EYES: The sclera were anicteric and conjunctiva were pink and moist. Extraocular movements were intact and pupils were equal round and reactive to light. Eyelids were unremarkable. PULMONARY: Unlabored respirations. Good breath sounds bilaterally. No audible rales rhonchi or wheezing was noted. CARDIOVASCULAR: There is a regular rate and rhythm without any murmurs gallops or rubs. ABDOMEN: Patient has suprapubic abdominal pain SKIN: Skin is clear with no lesions or rashes and otherwise unremarkable. NEUROLOGIC: Patient is alert and oriented x3. Cranial nerves II through XII are grossly intact. Motor and sensory are also intact. Normal speech, volume and content. Symmetrical smile. MUSCULOSKELETAL: Normal extremities with adequate strength and full range of motion. LYMPHATICS: No significant lymphadenopathy is noted PSYCHIATRIC: Normal psychiatric evaluation. Limitations: no limitations Course Vital Signs 08/30/20 08/30/20 08/30/20 15:14 17:17 18:15 Temperature 98.2 F Pulse Rate 76 76 88 Respiratory 18 20 20 Rate Blood Pressure 100/62 120/55 139/69 O2 Sat by Pulse 96 99 98 Oximetry Medical Decision Making - Medical Decision Making Patient's CAT scan shows Dr. Desir his first colitis. I gave the patient Levaquin and Flagyl. I gave the patient Dilaudid for pain. [facility] the patient I wrote admitting orders I continued the antibiotics on the floor as well as pain medicine. - Lab Data Result diagrams: 08/30/20 16:26 08/30/20 16:26 Lab Results 08/30/20 08/30/20 08/30/20 Range/Units 16:26 16:26 16:42 WBC 17.9 H (3.8-10.6) k/uL RBC 4.73 (3.80-5.40) m/uL Hgb 15.5 D (11.4-16.0) gm/dL Hct 44.6 (34.0-46.0) % MCV 94.3 (80.0-100.0) fL MCH 32.7 (25.0-35.0) pg MCHC 34.7 (31.0-37.0) g/dL RDW 12.0 (11.5-15.5) % Plt Count 516 H D (150-450) k/uL MPV 8.6 Neutrophils % 83 % Lymphocytes % 11 % Monocytes % 5 % Eosinophils % 0 % Basophils % 0 % Neutrophils # 14.8 H (1.3-7.7) k/uL Lymphocytes # 2.0 (1.0-4.8) k/uL Monocytes # 0.9 (0-1.0) k/uL Eosinophils # 0.1 (0-0.7) k/uL Basophils # 0.0 (0-0.2) k/uL Sodium 135 L (137-145) mmol/L Potassium 4.1 (3.5-5.1) mmol/L Chloride 104 (98-107) mmol/L Carbon Dioxide 17 L (22-30) mmol/L Anion Gap 14 mmol/L BUN 33 H (7-17) mg/dL Creatinine 0.87 (0.52-1.04) mg/dL Est GFR (CKD-EPI)AfAm 85 (>60 ml/min/1.73 sqM) Est GFR (CKD-EPI)NonAf 73 (>60 ml/min/1.73 sqM) Glucose 118 H (74-99) mg/dL Calcium 9.6 (8.4-10.2) mg/dL Total Bilirubin 0.9 (0.2-1.3) mg/dL AST 32 (14-36) U/L ALT 13 (4-34) U/L Alkaline Phosphatase 140 H (38-126) U/L Total Protein 6.7 (6.3-8.2) g/dL Albumin 3.9 (3.5-5.0) g/dL Amylase 46 (30-110) U/L Lipase 55 (23-300) U/L Urine Color Yellow Urine Appearance Clear (Clear) Urine pH 6.5 (5.0-8.0) Ur Specific Harmans 1.025 (1.001-1.035) Urine Protein 1+ H (Negative) Urine Glucose (UA) Negative (Negative) Urine Ketones 4+ H (Negative) Urine Blood Negative (Negative) Urine Nitrite Negative (Negative) Urine Bilirubin 1+ H (Negative) Urine Urobilinogen 2.0 (<2.0) mg/dL Ur Leukocyte Esterase Negative (Negative) Urine RBC <1 (0-5) /hpf Urine WBC 1 (0-5) /hpf Ur Squamous Epith Cells <1 (0-4) /hpf Hyaline Casts 3 H (0-2) /lpf Urine Mucus Few H (None) /hpf Disposition Clinical Impression: Diverticulitis Disposition: ADMITTED IP TO THIS [facility] Referrals: Frank Park DO [Primary Care Provider] - 1-2 days Time of Disposition: 19:06
[2020-08-30] MEDS ORDERED: HYDROmorphone 0.5 MG/0.5 ML SYRINGE IVP STA (16:30)
[2020-08-30] MEDS ORDERED: ONDANSETRON 4 MG/2 ML VIAL IVP STA (16:30)
[2020-08-30 16:38] LABS: Basophils % (A) 0 %; Eosinophils # (A) 0.1 k/uL (0-0.7); Eosinophils % (A) 0 %; HCT 44.6 % (34.0-46.0); Lymphocytes % (A) 11 %; MCH 32.7 pg (25.0-35.0); MCHC 34.7 g/dL (31.0-37.0); MCV 94.3 fL (80.0-100.0); Mean Platelet Volume 8.6; Monocytes # (A) 0.9 k/uL (0-1.0); Monocytes % (A) 5 %; Neutrophils # (A) 14.8 k/uL (1.3-7.7); Neutrophils % (A) 83 %; RBC 4.73 m/uL (3.80-5.40); WBC 17.9 k/uL (3.8-10.6)
[2020-08-30 16:56] LABS: Appearance,Urine Clear (Clear); Bilirubin,Urine 1+ (Negative); Blood,Urine Negative (Negative); Color,Urine Yellow; Glucose,Urine (UA) Negative (Negative); Hyaline Casts,Urine 3 /lpf (0-2); Ketones,Urine 4+ (Negative); Leukocyte Esterase,Urine Negative (Negative); Mucus,Urine Few /hpf; Nitrite,Urine Negative (Negative); PH, Urine 6.5 (5.0-8.0); Protein,Urine 1+ (Negative); RBC,Urine <1 /hpf (0-5); Specific Gravity,Urine 1.025 (1.001-1.035); Squamous Epithelial Cell,Urine <1 /hpf (0-4); WBC,Urine 1 /hpf (0-5)
[2020-08-30 16:56] LABS: HGB 15.5 gm/dL (11.4-16.0); Platelet Count 516 k/uL (150-450)
--- NOTE | 2020-08-30 17:13 | XR ---
EXAMINATION TYPE: XR KUB DATE OF EXAM: 08/30/2020 COMPARISON: NONE HISTORY: Abdominal pain TECHNIQUE: 2 views upright FINDINGS: There is no sign of intestinal obstruction or pneumoperitoneum. Fecal pattern is normal. Neena ng bases are clear. There are no pathologic calcifications over the kidneys. IMPRESSION: Nonacute abdomen.
[2020-08-30 17:17] LABS: Albumin 3.9 g/dL (3.5-5.0); Calcium 9.6 mg/dL (8.4-10.2); Total Bilirubin 0.9 mg/dL (0.2-1.3); Total Protein 6.7 g/dL (6.3-8.2)
[2020-08-30 17:19] LABS: Potassium 4.1 mmol/L (3.5-5.1)
--- NOTE | 2020-08-30 17:51 | CT ---
EXAMINATION TYPE: CT abdomen pelvis w con DATE OF EXAM: 08/30/2020 COMPARISON: None HISTORY: Generalized pain with nausea and vomiting CT DLP: 867.9 mGycm Automated exposure control for dose reduction was used. CONTRAST: Performed with IV Contrast, patient injected with 100 mL of Isovue 300. Lung bases are clear of infiltrate. There is no pleural effusion. Heart size is normal. There is no p ericardial effusion. There is small hiatal hernia. Stomach is intact. Gallbladder appears normal. The re is 2 cm area of hypodensity in the right lobe of the liver that could relate to a hemangioma. This appears to show delayed enhancement consistent with meningioma. Spleen is intact. There is no pancreatic mass. The bile ducts are not dilated. There is no adrenal mass. Kidneys show satisfactory contrast opacification. There is no hydronephrosi s. Ureters are not dilated. Abdominal aorta is atheromatous. There is no retroperitoneal adenopathy. Bladder distends smoothly. There is no inguinal hernia. There are some sigmoid diverticula. There is minimal fat stranding around the proximal sigmoid colon. There is mild wall thickening also. There is a few extraluminal air bubbles around anterior sigmoid colon. Terminal ileum appears normal. Appendix appears normal. There is no evidence of a pelvic mass. There is no free fluid in the pelvis. There is L3 50% compression fracture with fragment extension into the spinal canal and spinal stenosi s. Fracture appears old. There is moderately severe spinal stenosis. The bony pelvis is intact. The hip joints are intact. Sacroiliac joints appear intact. IMPRESSION: There is mild wall thickening and mild inflammatory changes around the proximal sigmoid colon consist ent with colitis or diverticulitis. Minimal extraluminal air. No drainable fluid collection. Hiatal hernia. Old L3 compression fracture. Moderate L3 spinal stenosis.
[2020-08-30] MEDS ORDERED: SODIUM CHLORIDE 0.9% 1,000 ML IV ONE ×2 (18:36→19:07)
[2020-08-30] MEDS ORDERED: LEVOFLOXACIN 750MG-D5W PMX 750 MG in DEXTROSE/WATER 1 150ML.BAG IVPB STA (18:36)
[2020-08-30] MEDS ORDERED: HYDROmorphone 1 MG/ML 1 ML SYRINGE IVP STA (18:37)
[2020-08-30] MEDS ORDERED: metroNIDAZOLE-NS PMX 500 MG in SALINE 1 100ML.BAG IVPB STA (19:08)
[2020-08-30] MEDS ORDERED: TRIMETHOBENZAMIDE 100 MG/ML 2 ML VIAL IM PRN (22:20)
[2020-08-30] MEDS: ONDANSETRON 4 MG/2 ML VIAL IVP PRN (23:23)
[2020-08-30] MEDS: HYDROmorphone 0.5 MG/0.5 ML SYRINGE IVP PRN (23:23)
[2020-08-31] MEDS: HYDROmorphone 0.5 MG/0.5 ML SYRINGE IVP PRN ×5 (03:38→20:03)
[2020-08-31] MEDS: metroNIDAZOLE-NS PMX 500 MG in SALINE 1 100ML.BAG IVPB SCH ×4 (03:39→22:07)
[2020-08-31] MEDS: ONDANSETRON 4 MG/2 ML VIAL IVP PRN ×2 (06:24→20:02)
[2020-08-31] MEDS: SENNOSIDES 8.6 MG TAB PO PRN ×2 (08:28→22:05)
--- NOTE | 2020-08-31 11:14 | P.GSCN ---
History of Present Illness Consult date: 08/31/20 Reason for Consult: Diverticulitis History of present illness: Patient underwent cervical orthopedic surgery 08/14. Postoperatively the patien t has had significant constipation. Over the last week has had developing lower abdominal pain left greater than right. Still no significant bowel function. She has had flatus. No fevers. 2 days ago had significant episodes of vomiting after trying milk of magnesia and prune juice. Came to the ER yesterday for evaluation. CAT scan performed showing evidence of diverticulitis involving the sigmoid colon. Patient's last colonoscopy was 1 year ago. Patient was found to have a 1 cm sigmoid polyp with focal area of high-grade dysplasia. Patient is scheduled for repeat colonoscopy in October. Patient's white blood cell count elevated at 17. No upper abdominal pain. Review of Systems The patient denies any acute changes in vision or hearing, no dysphagia or odynophagia, no chest pain or shortness of breath, no dysuria or hematuria, no headache, no runny nose, no rectal bleeding or melena, no unexplained weight loss Past Medical History Past Medical History: Cancer, Hypertension Additional Past Medical History / Comment(s): Hx cervical cancer in her 20's, History of Any Multi-Drug Resistant Organisms: None Reported Past Surgical History: Back Surgery, Hysterectomy Additional Past Surgical History / Comment(s): Conization of cervix, deviated septum repair. 08/14/2020 Cervical fusion Past Anesthesia/Blood Transfusion Reactions: No Reported Reaction Past Psychological History: Anxiety, Depression Additional Psychological History / Comment(s): No current problems with anxiety or depression. Smoking Status: Current every day smoker Past Alcohol Use History: None Reported Additional Past Alcohol Use History / Comment(s): Smokes 1ppd for 30 yrs. Past Drug Use History: None Reported - Past Family History Mother Family Medical History: No Reported History Medications and Allergies Home Medications Medication Instructions Recorded Confirmed Type Sennosides-Docusate Sodium 1 each PO DAILY PRN #30 tab 08/16/20 08/30/20 Rx [Senokot-S] amLODIPine [Norvasc] 10 mg PO QAM 30 Days #30 tab 08/16/20 08/30/20 Rx Pantoprazole Sodium [Protonix] 40 mg PO DAILY 08/30/20 08/30/20 History Allergies Allergy/AdvReac Type Severity Reaction Status Date / Time losartan Allergy Rash/Hives Verified 08/30/20 17:52 amoxicillin trihydrate AdvReac vaginal Verified 08/30/20 17:52 [From Augmentin] infection cephalexin monohydrate AdvReac vaginal Verified 08/30/20 17:52 [From Keflex] infection lisinopril AdvReac Rash/Hives Verified 08/30/20 17:52 Penicillins AdvReac vaginal Verified 08/30/20 17:52 infection potassium clavulanate AdvReac vaginal Verified 08/30/20 17:52 [From Augmentin] infection sulfamethoxazole AdvReac vaginal Verified 08/30/20 17:52 [From Bactrim] infection trimethoprim [From Bactrim] AdvReac vaginal Verified 08/30/20 17:52 infection Surgical - Exam Vital Signs Temp Pulse Resp BP Pulse Ox 98.2 F 76 18 100/62 96 08/30/20 15:14 08/30/20 15:14 08/30/20 15:14 08/30/20 15:14 08/30/20 15:14 Physical exam: General: Well-developed, well-nourished HEENT: Normocephalic, sclerae nonicteric Abdomen: Mild distention, left greater than right lower quadrant tenderness, no upper abdominal tenderness, no rebound or guarding Extremities: No edema Neuro: Alert and oriented Results - Labs 08/30/20 16:26 08/30/20 16:26 Abnormal Lab Results - Last 24 Hours (Table) 08/30/20 08/30/20 08/30/20 Range/Units 16:26 16:26 16:42 WBC 17.9 H (3.8-10.6) k/uL Plt Count 516 H D (150-450) k/uL Neutrophils # 14.8 H (1.3-7.7) k/uL Sodium 135 L (137-145) mmol/L Carbon Dioxide 17 L (22-30) mmol/L BUN 33 H (7-17) mg/dL Glucose 118 H (74-99) mg/dL Alkaline Phosphatase 140 H (38-126) U/L Urine Protein 1+ H (Negative) Urine Ketones 4+ H (Negative) Urine Bilirubin 1+ H (Negative) Hyaline Casts 3 H (0-2) /lpf Urine Mucus Few H (None) /hpf Diabetes panel 08/30/20 Range/Units 16:26 Sodium 135 L (137-145) mmol/L Potassium 4.1 (3.5-5.1) mmol/L Chloride 104 (98-107) mmol/L Carbon Dioxide 17 L (22-30) mmol/L BUN 33 H (7-17) mg/dL Creatinine 0.87 (0.52-1.04) mg/dL Glucose 118 H (74-99) mg/dL Calcium 9.6 (8.4-10.2) mg/dL AST 32 (14-36) U/L ALT 13 (4-34) U/L Alkaline Phosphatase 140 H (38-126) U/L Total Protein 6.7 (6.3-8.2) g/dL Albumin 3.9 (3.5-5.0) g/dL Calcium panel 08/30/20 Range/Units 16:26 Calcium 9.6 (8.4-10.2) mg/dL Albumin 3.9 (3.5-5.0) g/dL Pituitary panel 08/30/20 Range/Units 16:26 Sodium 135 L (137-145) mmol/L Potassium 4.1 (3.5-5.1) mmol/L Chloride 104 (98-107) mmol/L Carbon Dioxide 17 L (22-30) mmol/L BUN 33 H (7-17) mg/dL Creatinine 0.87 (0.52-1.04) mg/dL Glucose 118 H (74-99) mg/dL Calcium 9.6 (8.4-10.2) mg/dL Adrenal panel 08/30/20 Range/Units 16:26 Sodium 135 L (137-145) mmol/L Potassium 4.1 (3.5-5.1) mmol/L Chloride 104 (98-107) mmol/L Carbon Dioxide 17 L (22-30) mmol/L BUN 33 H (7-17) mg/dL Creatinine 0.87 (0.52-1.04) mg/dL Glucose 118 H (74-99) mg/dL Calcium 9.6 (8.4-10.2) mg/dL Total Bilirubin 0.9 (0.2-1.3) mg/dL AST 32 (14-36) U/L ALT 13 (4-34) U/L Alkaline Phosphatase 140 H (38-126) U/L Total Protein 6.7 (6.3-8.2) g/dL Albumin 3.9 (3.5-5.0) g/dL Assessment and Plan (1) Diverticulitis Narrative/Plan: 60-year-old female with sigmoid diverticulitis. Continue bowel rest except for sips of water. Continue IV antibiotics. Ambulate. Current Visit: Yes Status: Acute Code(s): K57.92 - DVTRCLI OF INTEST, PART UNSP, W/O PERF OR ABSCESS W/O BLEED SNOMED Code(s): 578095722
--- NOTE | 2020-08-31 13:01 | P.CNOR ---
History of Present Illness - HPI Consult date: 08/31/20 History of present illness: This is a 60-year-old female who is admitted for diverticulitis. Patient states that she has been vomiting for the past 2 days having abdominal pain. Patient is status post cervical fusion on 08/14/[address] Espitia. Patient states that her neck is sore and she attributes this to vomiting for the last 2 days, but otherwise patient denies any new complaints regarding her neck. Patient states that she has an outpatient postop visit scheduled for 09/04/2019. Patient denies any radicular pain, numbness, weakness or tingling. Review of Systems See HPI. Past Medical History Past Medical History: Cancer, Hypertension Additional Past Medical History / Comment(s): Hx cervical cancer in her 20's, History of Any Multi-Drug Resistant Organisms: None Reported Past Surgical History: Back Surgery, Hysterectomy Additional Past Surgical History / Comment(s): Conization of cervix, deviated septum repair. 08/14/2020 Cervical fusion Past Anesthesia/Blood Transfusion Reactions: No Reported Reaction Past Psychological History: Anxiety, Depression Additional Psychological History / Comment(s): No current problems with anxiety or depression. Smoking Status: Current every day smoker Past Alcohol Use History: None Reported Additional Past Alcohol Use History / Comment(s): Smokes 1ppd for 30 yrs. Past Drug Use History: None Reported - Past Family History Mother Family Medical History: No Reported History Medications and Allergies Home Medications Medication Instructions Recorded Confirmed Type Sennosides-Docusate Sodium 1 each PO DAILY PRN #30 tab 08/16/20 08/30/20 Rx [Senokot-S] amLODIPine [Norvasc] 10 mg PO QAM 30 Days #30 tab 08/16/20 08/30/20 Rx Pantoprazole Sodium [Protonix] 40 mg PO DAILY 08/30/20 08/30/20 History Allergies Allergy/AdvReac Type Severity Reaction Status Date / Time losartan Allergy Rash/Hives Verified 08/30/20 17:52 amoxicillin trihydrate AdvReac vaginal Verified 08/30/20 17:52 [From Augmentin] infection cephalexin monohydrate AdvReac vaginal Verified 08/30/20 17:52 [From Keflex] infection lisinopril AdvReac Rash/Hives Verified 08/30/20 17:52 Penicillins AdvReac vaginal Verified 08/30/20 17:52 infection potassium clavulanate AdvReac vaginal Verified 08/30/20 17:52 [From Augmentin] infection sulfamethoxazole AdvReac vaginal Verified 08/30/20 17:52 [From Bactrim] infection trimethoprim [From Bactrim] AdvReac vaginal Verified 08/30/20 17:52 infection Physical Examination On exam patient is lying comfortably in bed in no acute distress. Patient is alert and oriented 3. Patient is able to move the neck freely. Patient has full range of motion of bilateral upper extremities. Sensation intact. Neurovascular status and circulatory status are intact. Results - Labs Labs: Abnormal Lab Results - Last 24 Hours (Table) 08/30/20 08/30/20 08/30/20 Range/Units 16:26 16:26 16:42 WBC 17.9 H (3.8-10.6) k/uL Plt Count 516 H D (150-450) k/uL Neutrophils # 14.8 H (1.3-7.7) k/uL Sodium 135 L (137-145) mmol/L Carbon Dioxide 17 L (22-30) mmol/L BUN 33 H (7-17) mg/dL Glucose 118 H (74-99) mg/dL Alkaline Phosphatase 140 H (38-126) U/L Urine Protein 1+ H (Negative) Urine Ketones 4+ H (Negative) Urine Bilirubin 1+ H (Negative) Hyaline Casts 3 H (0-2) /lpf Urine Mucus Few H (None) /hpf H & H 08/30/20 Range/Units 16:26 Hgb 15.5 D (11.4-16.0) gm/dL Hct 44.6 (34.0-46.0) % Result Diagrams: 08/30/20 16:26 08/30/20 16:26 Assessment and Plan Assessment: Status post cervical fusion. (1) Diverticulitis Current Visit: Yes Status: Acute Code(s): K57.92 - DVTRCLI OF INTEST, PART UNSP, W/O PERF OR ABSCESS W/O BLEED SNOMED Code(s): 091429210 Plan: 1. Continue pain control. 2. Appreciate input from internal medicine. 3. Patient is not having any new symptoms relating to her cervical fusion. At this time we will follow peripherally.
--- NOTE | 2020-08-31 15:31 | HP ---
HISTORY AND PHYSICAL DATE OF SERVICE: 08/31/2020 CHIEF COMPLAINT: Abdominal pain. HISTORY OF PRESENT ILLNESS: This 60-year-old woman with a past medical history of multiple medical problems, including hypertension, history of cervical cancer, back surgery, hysterectomy, anxiety, depression, being followed by Dr. Frank Park in the outpatient setting, recently had cervical surgery by Dr. Espitia. The patient underwent anterior cervical decompression and fusion at C3-4, C4-5 and C5-6 for herniated nucleus pulposus and radiculopathy. The patient tolerated the procedure. The patient went home, but subsequently patient had some constipation. Patient was complaining of abdominal pain which was felt mainly in the left lower quadrant, and the patient also had episodes of vomiting after taking milk of magnesia. The patient came to [facility]. CT scan of the abdomen showed evidence of sigmoid diverticulitis. Patient was admitted for further evaluation and treatment. There is no history of any fever, rigor or chills. No history of headache, loss of consciousness, seizures. PAST MEDICAL HISTORY: History of hypertension, history of cervical cancer, back surgery, hysterectomy, anxiety, depression. HOME MEDICATIONS: Protonix 40 mg daily, Norvasc 10 mg each morning, Senokot 1 tablet daily p.r.n. ALLERGIES: LOSARTAN, AMOXICILLIN, LISINOPRIL PENICILLIN, POTASSIUM, BACTRIM. FAMILY HISTORY: No history of heart disease or strokes in the family. SOCIAL HISTORY: History of smoking daily. Occasional alcohol intake. REVIEW OF SYSTEMS: ENT: No diminished hearing. No diminished vision. CARDIOVASCULAR SYSTEM: No angina, palpitations. RESPIRATORY SYSTEM: No cough, hemoptysis. GI: As mentioned earlier. : No dysuria or retention. NERVOUS SYSTEM: No numbness, weakness. ALLERGY/IMMUNOLOGY: No asthma, hayfever. MUSCULOSKELETAL: As mentioned earlier. HEMATOLOGY/ONCOLOGY: No history of anemia. ENDOCRINE: No history of diabetes, hypothyroidism. CONSTITUTIONAL: As mentioned earlier. DERMATOLOGY: Negative. RHEUMATOLOGY: Negative. PSYCHIATRY: As mentioned earlier. PHYSICAL EXAMINATION: Patient alert and oriented x3. Pulse 78, blood pressure 97/57, respiration 18, temperature 98.2, pulse ox 97% on room air. HEENT: Conjunctivae normal. NECK: No jugular venous distention. CARDIOVASCULAR SYSTEM: S1, S2 muffled. RESPIRATORY SYSTEM: Breath sounds diminished at the bases. A few scattered rhonchi and crackles. ABDOMEN: Soft. Mild distention. Otherwise, no guarding or rigidity. Mild tenderness in the left lower quadrant present. Bowel sounds diminished. No ascites. No mass palpable. LEGS: No edema. No swelling. NERVOUS SYSTEM: Higher functions as mentioned earlier. Moves all 4 limbs. No focal motor or sensory deficit. LYMPHATICS: No lymph node palpable in neck, axillae or groin. SKIN: No ulcer, rash, bleeding. JOINTS: No active deforming arthropathy. LABS: WBC 17.9, sodium 132, potassium 4.1, CO2 17. UA noted. ASSESSMENT: 1. Abdominal pain with acute diverticulitis and sigmoid diverticulitis with severe pain. 2. History of recent anterior cervical disc decompression and fusion, C3-4, C4-5, C5-6 for herniated nucleus pulposus and cervical stenosis. 3. History of hypertension. 4. History of cervical cancer in 20s. 5. History of hysterectomy. 6. History of back surgery, degenerative joint disease. 7. History of anxiety, depression. 8. Continued ongoing nicotine dependence. RECOMMENDATIONS AND DISCUSSION: In this 60-year-old woman who presented with multiple complex medical issues, we will monitor the patient closely, continue the current medications, continue symptomatic treatment. Will initiate broad-spectrum IV antibiotics. DVT prophylaxis. Pain management. Proton pump inhibitors. Will consult Surgery as well as Orthopedic Surgery and otherwise keep the patient n.p.o. Repeat labs. Guarded prognosis because of multiple complex medical issues. Further recommendations to follow. Resume the home medications. A copy of this dictation is being forwarded to Dr. Park, who is the primary physician. MMODL / IJN: [id number] /
[2020-08-31] MEDS: HEPARIN SODIUM,PORCINE 5,000 UNIT/ML 1 ML VIAL SQ SCH (15:34)
[2020-08-31] MEDS: NICOTINE 14MG/24HR PATCH TRANSDERM SCH (15:35)
[2020-08-31] MEDS: PANTOPRAZOLE 40 MG/10 ML VIAL IVP SCH (15:39)
[2020-08-31] MEDS: amLODIPine 10 MG TAB PO SCH (17:36)
[2020-08-31] MEDS: LEVOFLOXACIN 750MG-D5W PMX 750 MG in DEXTROSE/WATER 1 150ML.BAG IVPB SCH (18:29)
[2020-09-01] MEDS: HYDROmorphone 0.5 MG/0.5 ML SYRINGE IVP PRN ×6 (00:05→22:05)
[2020-09-01] MEDS: HEPARIN SODIUM,PORCINE 5,000 UNIT/ML 1 ML VIAL SQ SCH ×3 (00:05→20:20)
[2020-09-01] MEDS: metroNIDAZOLE-NS PMX 500 MG in SALINE 1 100ML.BAG IVPB SCH ×4 (04:18→22:05)
[2020-09-01] MEDS: ALPRAZolam 0.25 MG TAB PO PRN ×2 (05:16→18:24)
[2020-09-01 05:48] LABS: Basophils % (A) 0 %; Eosinophils % (A) 0 %; HCT 31.2 % (34.0-46.0); Lymphocytes % (A) 7 %; MCH 32.4 pg (25.0-35.0); MCHC 32.9 g/dL (31.0-37.0); MCV 98.5 fL (80.0-100.0); Mean Platelet Volume 8.3; Monocytes # (A) 0.5 k/uL (0-1.0); Monocytes % (A) 4 %; Neutrophils # (A) 11.6 k/uL (1.3-7.7); Neutrophils % (A) 88 %; Platelet Count 270 k/uL (150-450); RBC 3.17 m/uL (3.80-5.40); RDW 12.2 % (11.5-15.5); WBC 13.2 k/uL (3.8-10.6)
[2020-09-01 05:53] LABS: HGB 10.3 gm/dL (11.4-16.0)
[2020-09-01 05:56] LABS: African American GFR (CKD) >90 (>60 ml/min/1.73 sqM); Anion Gap 6 mmol/L; Blood Urea Nitrogen 16 mg/dL (7-17); Calcium 8.1 mg/dL (8.4-10.2); Carbon Dioxide 22 mmol/L (22-30); Chloride 106 mmol/L (98-107); Glucose 80 mg/dL (74-99); Non-African American GFR(CKD) 90 (>60 ml/min/1.73 sqM); Potassium 3.7 mmol/L (3.5-5.1); Sodium 134 mmol/L (137-145)
[2020-09-01] MEDS: amLODIPine 10 MG TAB PO SCH (07:41)
[2020-09-01] MEDS: NICOTINE 14MG/24HR PATCH TRANSDERM SCH (07:41)
--- NOTE | 2020-09-01 08:14 | P.PN ---
Subjective Progress Note Date: 09/01/20 Principal diagnosis: Diverticulitis Patient says she feels about the same today. She is passing flatus. No bowel movement. Pain still in the lower abdomen. No temps over 100. She no tachycardia. White blood cell count 13. Objective - Vital Signs Vital signs: Vital Signs Temp 99.6 F 09/01/20 07:32 Pulse 84 09/01/20 07:32 Resp 18 09/01/20 07:32 BP 106/61 09/01/20 07:32 Pulse Ox 95 09/01/20 07:32 Intake & Output 08/31/20 09/01/20 09/01/20 18:59 06:59 18:59 Intake Total 345 Output Total 500 476 150 Balance -155 -476 -150 Intake: Oral 345 Output: Urine 500 476 150 Other: Voiding Method Toilet Toilet Toilet # Voids 2 - Exam Abdomen: Soft, mild distention, mild to moderate lower quadrant tenderness left greater than right - Labs CBC & Chem 7: 09/01/20 05:30 09/01/20 05:30 Labs: Abnormal Lab Results - Last 24 Hours (Table) 09/01/20 09/01/20 Range/Units 05:30 05:30 WBC 13.2 H (3.8-10.6) k/uL RBC 3.17 L (3.80-5.40) m/uL Hgb 10.3 L D (11.4-16.0) gm/dL Hct 31.2 L (34.0-46.0) % Neutrophils # 11.6 H (1.3-7.7) k/uL Sodium 134 L (137-145) mmol/L Calcium 8.1 L (8.4-10.2) mg/dL Microbiology - Last 24 Hours (Table) 08/30/20 19:39 Blood Culture - Preliminary Blood No Growth after 24 hours 08/30/20 19:29 Blood Culture - Preliminary Blood No Growth after 24 hours Assessment and Plan (1) Diverticulitis Narrative/Plan: Overall patient slowly improving. Repeat labs tomorrow. Continue broad- spectrum antibiotics. At the portal for pain control. Ambulate. Current Visit: Yes Status: Acute Code(s): K57.92 - DVTRCLI OF INTEST, PART UNSP, W/O PERF OR ABSCESS W/O BLEED SNOMED Code(s): 414142966
[2020-09-01] MEDS: SENNOSIDES 8.6 MG TAB PO PRN (08:45)
[2020-09-01] MEDS: PANTOPRAZOLE 40 MG/10 ML VIAL IVP SCH (08:45)
[2020-09-01] MEDS: KETOROLAC 15 MG/ML 1 ML VIAL IVP SCH ×3 (12:08→23:21)
[2020-09-01] MEDS: ONDANSETRON 4 MG/2 ML VIAL IVP PRN (12:15)
[2020-09-01] MEDS: SODIUM CHLORIDE 0.9% 1,000 ML IV SCH (15:28)
--- NOTE | 2020-09-01 16:49 | PN ---
PROGRESS NOTE DATE OF SERVICE: 09/01/2020 This 60-year-old woman admitted with abdominal pain and sigmoid diverticulitis is being closely monitored. Dr. Lara is following the patient. Patient on broad spectrum IV antibiotics. White count is slightly less. No chest pain. No palpitations. No fever. No shortness of breath. PHYSICAL EXAMINATION: Alert and oriented x3. Pulse is 84. Blood pressure 106/61, respiration 18, temperature 99.6, pulse ox 94% on room air. HEENT: Conjunctivae normal. NECK: No JVD. CARDIOVASCULAR: S1, S2 muffled. RESPIRATION: Breath sounds diminished in the bases. A few rhonchi. No crackles. ABDOMEN: Soft. Mild diffuse discomfort. No guarding. No guarding. No rigidity. No mass palpable. LEGS: No edema. Nervous system: No focal deficits. LABS: WBC 13.2, hemoglobin 10.2. Sodium 134. ASSESSMENT: 1. Abdominal pain with acute sigmoid diverticulitis with severe pain. 2. History of recent anterior cervical disc decompression and fusion, C3-4, C4-5, C5-6 for herniated nucleus pulposus and cervical stenosis. 3. History of hypertension. 4. Mild hyponatremia. 5. History of cervical cancer in 20s. 6. Hysterectomy. 7. History of back surgery/degenerative joint disease. 8. History of anxiety, depression. 9. Continued ongoing nicotine dependence. 10.Increased WBC, improving. 11.Anemia, normocytic anemia of chronic disease. RECOMMENDATIONS AND DISCUSSION: In this 60-year-old woman who presented with multiple complex medical issues, we will monitor the patient closely. Continue the current medications, and symptomatic treatment. Continue the combination of Levaquin and Flagyl. Continue rest of medications. IV fluids. Monitor electrolytes closely. DVT prophylaxis. Pain management. Closely follow with surgery. Further recommendations to follow. Prognosis guarded. MMODL / IJN: [id number] /
[2020-09-01] MEDS: LEVOFLOXACIN 750MG-D5W PMX 750 MG in DEXTROSE/WATER 1 150ML.BAG IVPB SCH (20:20)
[2020-09-01] MEDS: TEMAZEPAM 15 MG CAP PO PRN (20:20)
[2020-09-02] MEDS: KETOROLAC 15 MG/ML 1 ML VIAL IVP SCH ×3 (05:15→18:43)
[2020-09-02] MEDS: metroNIDAZOLE-NS PMX 500 MG in SALINE 1 100ML.BAG IVPB SCH ×4 (05:15→21:02)
[2020-09-02] MEDS: HYDROcodone/APAP 5-325MG 1 EACH TAB PO PRN (05:22)
[2020-09-02 06:28] LABS: Basophils % (A) 0 %; Eosinophils # (A) 0.1 k/uL (0-0.7); Eosinophils % (A) 1 %; HGB 10.2 gm/dL (11.4-16.0); Lymphocytes # (A) 0.8 k/uL (1.0-4.8); Lymphocytes % (A) 6 %; MCV 97.1 fL (80.0-100.0); Mean Platelet Volume 8.4; Monocytes # (A) 0.7 k/uL (0-1.0); Monocytes % (A) 5 %; Neutrophils # (A) 11.5 k/uL (1.3-7.7); Neutrophils % (A) 87 %; Platelet Count 252 k/uL (150-450); RBC 3.09 m/uL (3.80-5.40); RDW 11.7 % (11.5-15.5); WBC 13.3 k/uL (3.8-10.6)
[2020-09-02] MEDS: amLODIPine 10 MG TAB PO SCH (08:30)
[2020-09-02] MEDS: NICOTINE 14MG/24HR PATCH TRANSDERM SCH ×2 (08:38→08:43)
[2020-09-02] MEDS: HYDROmorphone 0.5 MG/0.5 ML SYRINGE IVP PRN ×2 (08:38→15:14)
--- NOTE | 2020-09-02 08:38 | P.PN ---
Subjective Progress Note Date: 09/02/20 Principal diagnosis: Diverticulitis Patient had a low-grade fever last night 100.8. Today's labs show a persistent leukocytosis 13.3. Says her pain is slightly better. Still having no significant bowel function. She was asking to eat more. Objective - Vital Signs Vital signs: Vital Signs Temp 99.4 F 09/02/20 08:00 Pulse 69 09/02/20 08:00 Resp 19 09/02/20 08:00 BP 116/67 09/02/20 08:00 Pulse Ox 93 L 09/02/20 08:00 Intake & Output 09/01/20 09/02/20 09/02/20 18:59 06:59 18:59 Intake Total 200 0 Output Total 375 Balance -175 0 Intake: Oral 200 0 Output: Urine 375 Other: Voiding Method Toilet Toilet # Voids 1 1 - Exam Abdomen: Soft, mild distention, mild to moderate lower abdominal tenderness - Labs CBC & Chem 7: 09/02/20 05:57 09/01/20 05:30 Labs: Abnormal Lab Results - Last 24 Hours (Table) 09/02/20 Range/Units 05:57 WBC 13.3 H (3.8-10.6) k/uL RBC 3.09 L (3.80-5.40) m/uL Hgb 10.2 L (11.4-16.0) gm/dL Hct 30.0 L (34.0-46.0) % Neutrophils # 11.5 H (1.3-7.7) k/uL Lymphocytes # 0.8 L (1.0-4.8) k/uL Microbiology - Last 24 Hours (Table) 08/30/20 19:39 Blood Culture - Preliminary Blood No Growth after 48 hours 08/30/20 19:29 Blood Culture - Preliminary Blood No Growth after 48 hours Assessment and Plan (1) Diverticulitis Narrative/Plan: Patient's diverticulitis not improving as expected. We'll repeat CT abdomen and pelvis to evaluate for progression of her illness. Keep nothing by mouth. Continue antibiotics. Current Visit: Yes Status: Acute Code(s): K57.92 - DVTRCLI OF INTEST, PART UNSP, W/O PERF OR ABSCESS W/O BLEED SNOMED Code(s): 622545583
[2020-09-02] MEDS: PANTOPRAZOLE 40 MG/10 ML VIAL IVP SCH (08:39)
[2020-09-02] MEDS: HEPARIN SODIUM,PORCINE 5,000 UNIT/ML 1 ML VIAL SQ SCH ×2 (08:39→21:02)
[2020-09-02] MEDS: IOPAMIDOL CONTRAST (ORAL USE) VIAL PO PRN ×2 (09:02→10:01)
[2020-09-02] MEDS: ONDANSETRON 4 MG/2 ML VIAL IVP PRN (09:07)
[2020-09-02 09:57] LABS: African American GFR (CKD) 109.9 (60.0-200.0); Anion Gap 8.8 mmol/L (4.00-12.00); BUN/Creat Ratio 22.86 Ratio (12.00-20.00); Carbon Dioxide 20.2 mmol/L (21.6-31.8); Non-African American GFR(CKD) 94.8 (60.0-200.0); Potassium 3.7 mmol/L (3.5-5.5)
[2020-09-02] MEDS: SODIUM CHLORIDE 0.9% 1,000 ML IV SCH (11:37)
--- NOTE | 2020-09-02 11:39 | CT ---
EXAMINATION TYPE: CT abdomen pelvis w con DATE OF EXAM: 09/02/2020 HISTORY: Follow up on diverticulitis CT DLP: 1054.6mGycm Automated Exposure Control for Dose Reduction was Utilized. CONTRAST: CT scan of the abdomen and pelvis is performed with IV Contrast, patient injected with 100 ml mL of I sovue 300. COMPARISON: CT abdomen and pelvis 3 days ago FINDINGS: LUNG BASES: New small to tiny right greater than left pleural effusions with associated compressive a telectasis. Coronary artery calcification redemonstrated. LIVER/GB: Gallbladder has increased density likely reflecting some vicarious excretion. Visualized li elijah remains heterogeneously hypodense suggesting fatty infiltration. There is 1.6 cm Central hypodens e lesion axial image 19 becomes more isodense on delayed phase images, nonspecific finding favoring a denoma or FNH. Nonemergent follow-up advised. PANCREAS: No significant abnormality is seen. SPLEEN: No significant abnormality is seen. ADRENALS: No significant abnormality is seen. KIDNEYS: Symmetric cortical medullary uptake and excretion without concerning renal mass or hydroneph rosis seen bilaterally. BOWEL: Oral contrast does not reach level of terminal ileum making evaluation of distal bowel subopti mal. No suspicious small or large bowel dilatation. Moderate prominence of fecal material in the righ t and transverse colon on current study. Diverticula in the left and sigmoid colon redemonstrated. Th ere is worsening ill-defined fluid and fat stranding in the pelvis. No free air. There is new thin-wa lled fluid collection in the anterior pelvis measuring 3.5 x 1.6 cm coronal image 41. UTERUS/ADNEXA: Uterus is surgically absent or markedly atrophic. Scattered pelvic phleboliths. LYMPH NODES: No greater than 1cm abdominal or pelvic lymph nodes are appreciated. OSSEOUS STRUCTURES: Moderate compression type fracture L3 level with posterior retropulsion into spin al canal sagittal image 76 redemonstrated. Findings it is subacute or chronic in age as is sclerotic. Facet arthropathy lower lumbar spine. OTHER: Moderate to severe calcified plaque of the aorta extends into branch vessels. Overlying horizontal soft tissue anterior pelvis now present with surrounding fluid new from August 30. Small fat-containing umbilical hernia. IMPRESSION: 1. Worsening severe acute diverticulitis in the pelvis as detailed above. New developing small peridi verticular abscess. 2. Unusual new inflammatory change horizontally in the anterior pelvic subcutaneous tissue, no interv al surgery noted on discussion with patient's nurse. A Yellow level critical message alert has been initiated for Renzo Lara via the [facility] Critical Results System on 09/02/2020 11:37 AM. This message alert has been sent to Renzo Lara via the preferences provided by the clinician for the receipt of Radiology Critical Findings. Message ID [id number].
[2020-09-02] MEDS ORDERED: diphenhydrAMINE 50 MG/ML 1 ML VIAL IVP PRN (15:24)
[2020-09-02] MEDS ORDERED: NALOXONE 0.4 MG/ML 1 ML VIAL IV PRN ×2 (15:24→16:47)
[2020-09-02] MEDS ORDERED: HYDROmorphone 0.5 MG/0.5 ML SYRINGE IVP PRN (15:24)
[2020-09-02] MEDS ORDERED: fentaNYL (PF) 50 MCG/ML 2 ML AMP ONE (15:46)
[2020-09-02] MEDS ORDERED: MIDAZOLAM 2 MG/2 ML VIAL ONE (15:46)
[2020-09-02] MEDS ORDERED: LABETALOL 5 MG/ML VIAL MDV ONE (15:46)
[2020-09-02] MEDS ORDERED: ROCURONIUM 10 MG/ML (10 ML VIAL) IV ONE (15:46)
[2020-09-02] MEDS ORDERED: GLYCOPYRROLATE 0.2 MG/ML 2 ML VIAL ONE (15:46)
[2020-09-02] MEDS ORDERED: ONDANSETRON 4 MG/2 ML VIAL ONE (15:46)
[2020-09-02] MEDS ORDERED: SUCCINYLCHOLINE CHLORIDE 100 MG/5 ML SYR IV ONE (15:46)
[2020-09-02] MEDS ORDERED: LIDOCAINE 1% INJ 10MG/ML (20 ML MDV) ONE (15:46)
[2020-09-02] MEDS ORDERED: PROPOFOL 10 MG/ML 20 ML VIAL IV ONE (15:46)
[2020-09-02] MEDS ORDERED: DEXAMETHASONE SOD PHOSPHATE 10 MG/ML 1 ML VIAL ONE (15:46)
[2020-09-02] MEDS ORDERED: NEOSTIGMINE 1 MG/ML 10 ML VIAL ONE (15:46)
--- NOTE | 2020-09-02 15:58 | PN ---
PROGRESS NOTE DATE OF SERVICE: 09/02/2020. This 60-year-old woman admitted sigmoid diverticulitis is complaining of persistent pain at this time. White count is improved initially, but currently at [address] Lara is following the patient closely and a repeat CT scan of the abdomen was ordered by Dr. Lara showed worsening of the severe acute diverticulitis in the pelvis continued appearing small peridiverticular abscess also noted. Unusual new inflammatory changes also in the anterior pelvis subcu tissue was also noted. The Infectious Disease has been consulted and antibiotics are supposed to be changed to IV Zosyn at this time. PAST MEDICAL HISTORY: Reviewed. REVIEW OF SYSTEMS: CARDIOVASCULAR: No angina. Respiration as mentioned earlier. GI: As mentioned earlier. no dysuria. Nervous system: No numbness, weakness. ALLERGY/IMMUNOLOGY: No asthma or hayfever. MUSCULOSKELETAL as mentioned earlier. HEMATOLOGY/ONCOLOGY: No history of anemia. ENDOCRINE: As mentioned earlier. CURRENT MEDICATIONS: Reviewed and include: 1. [place]. 2. Xanax. 3. Norvasc. 4. Heparin. 5. Dilaudid. 6. Toradol. 7. Flagyl. 8. Zosyn. 9. Restoril. 10.Tigan. PHYSICAL EXAMINATION: Alert and oriented times three. Pulse is 69, blood pressure 116/66, respirations 19, temperature 99.4, T-max 100.8, pulse ox 98% on room air. HEENT: Conjunctivae normal. NECK: No JVD. CARDIOVASCULAR: S1, S2 muffled. RESPIRATIONS: Breath sounds diminished in the bases. No rhonchi. No crackles. ABDOMEN soft. Mild diffuse discomfort. Otherwise, no guarding or rigidity. No mass palpable. Minimal abdominal distention. Bowel sounds diminished. LEGS: No edema, No swelling. NERVOUS SYSTEM: No focal deficits. LABORATORY DATA: WBC 13.2, hemoglobin 10.2, sodium 137, potassium 3.7. ASSESSMENT: 1. Abdominal pain with acute sigmoid diverticulitis with severe pain which is worsening with developing small peridiverticular abscess. 2. Unusual inflammatory changes overlying the anterior pelvis subcutaneous tissue. 3. History of recent anterior cervical disc decompression and fusion, C3-4, C4-5 and C5-6 for herniated nucleus pulposus and cervical stenosis. 4. History of hypertension. 5. Mild hyponatremia. 6. History of cervical cancer in 20s. 7. Hysterectomy. 8. History of back surgery, degenerative joint disease. 9. History of anxiety, depression. 10.Continued ongoing nicotine dependence. 11.Increased WBC improved. 12.Anemia, normocytic anemia of chronic disease. RECOMMENDATIONS AND DISCUSSION: I recommend to continue current medications, continue monitoring and symptomatic treatment with IV antibiotics. Add Zosyn to the current regimen. Closely follow with surgery. Further recommendations per Surgery. Also I would also consult Infectious Disease for evaluation. Prognosis guarded. Further recommendations to follow. MMODL / IJN: [id number] /
[2020-09-02] MEDS ORDERED: AZTREONAM 2 GM in SODIUM CHLORIDE 0.9% 100 ML IVPB SCH (16:00)
[2020-09-02] MEDS ORDERED: LACTATED RINGERS 1,000 ML IV ONE ×4 (16:10→19:08)
--- NOTE | 2020-09-02 16:11 | P.PN ---
Progress Note - Text Progress Note Date: 09/02/20 Patient's repeat CAT scan reviewed. I spoke with the patient by phone from home shortly after the CAT scan was obtained. Progression of the inflammatory process in the pelvis as noted. Patient's pain has progressed over the last 24- 36 hours. Options discussed in detail with the patient. Given the progression despite conservative management recommend exploratory laparotomy with sigmoid colectomy and end colostomy at this time. Discussed waiting until tomorrow to see if the patient's condition improved any further with the patient and I both agree to proceed at this time. Risks of bleeding, infection, abscess, bladder and bowel injury, colostomy complications, hernia, respiratory and cardiac complications reviewed. She understands and wishes to proceed.
[2020-09-02] MEDS ORDERED: BENZOCAINE/MENTHOL LOZENG 1 EACH LOZENGE MUCOUS MEM PRN (18:19)
[2020-09-02] MEDS ORDERED: PROMETHAZINE INJ 25 MG/ML 1 ML VIAL IVPB ONE (18:29)
[2020-09-02] MEDS: ROPIVACAINE 250 MG, HYDROMORPHONE (PF) 5 MG in SODIUM CHLORIDE 0.9% 200 ML EPIDURAL PRN (18:30)
[2020-09-02] MEDS ORDERED: SCOPOLAMINE 1.5MG/72HR PATCH TRANSDERM ONE (18:31)
--- NOTE | 2020-09-02 18:32 | P.OP ---
Date of Procedure: 09/02/20 Procedure(s) Performed: PREOPERATIVE DIAGNOSIS: Perforated sigmoid diverticulitis POSTOPERATIVE DIAGNOSIS: Same PROCEDURE: Sigmoid colectomy with end colostomy, incidental appendectomy, mobilization splenic flexure SURGEON: Marco EBL: 50 mL ANESTHESIA: General COMPLICATIONS: None OPERATIVE PROCEDURE: Patient place in the operative table in the supine position. The patient was placed under general anesthesia. The abdomen was prepped and draped in usual sterile fashion. A vertical incision was made enc ompassing extending from the suprapubic region above the umbilicus. The fascia was divided as well. Serosanguineous fluid was identified in the abdominal cavity. The patient's pelvis was significantly inflamed. The Bookwalter retractor was utilized. There were small bowel loops that were gently adherence to the inflamed sigmoid colon loop. These were able to be lysed quite easily. The patient's appendix was also incorporated into that inflammatory. The appendix itself however appeared normal. I did decide to remove the appendix at this time. The base of the appendix was divided using a linear 75 stapler. The mesoappendix was divided using a LigaSure device. The sigmoid colon was then able to be visualized. The patient had at least one large perforation of the colon with very firm stool seen outside of the colon. A second area also looked suspicious for a perforation site. This may have represented a Sterk oral ulcer rather than diverticulitis. It was hard to say with certainty. The colon from the proximal transverse colon all the way down to the sigmoid colon was filled with very firm hard stool. I divided the sigmoid colon proximal to the perforation using a linear 75 stapler. The mesentery was divided at that time using the LigaSure device. Beyond the inflamed segment I divided the distal sigmoid colon using a linear stapler stapler. The specimen was sent to pathology at that time. The sigmoid colon was then mobilized further by dividing a portion of mesentery proximally and also dividing the white line of Toldt. The patient had a very thick abdominal wall. In order for the colon to reach the abdominal wall the splenic flexure required mobilization. The incision was lengthened superiorly. Using blunt dissection and electrocautery the splenic flexure was fully mobilized. We had adequate length at this time. At that time the abdomen was copiously irrigated with 3 L of saline. No further purulence was encountered at that time. A circular incision was made in the left midabdomen. Dissection through the subcutaneous fat and fascia took place using electrocautery. I bluntly entered the peritoneal cavity and this was further bluntly opened. The bowel was brought out through this defect in the left midabdomen. The midline fascia was then reapproximated using 3 separate double-stranded #1 PDS sutures. The subcutaneous tissues were irrigated. The subcutaneous tissues were closed using 3-0 Vicryl sutures. The skin was then closed using tyree. 3 separate sites were left open along the midline incision for Aquacel silver rope wick placement. The ostomy was then addressed. A portion of the pericolonic fat was removed using the LigaSure device. The staple line was then removed using electrocautery. The ostomy was then matured in a upper sioux fashion using interrupted 3-0 Vicryl sutures. An ostomy appliance was then applied. Sterile dressings were then applied to the midline incision. DISPOSITION: Stable to recovery room. I spoke with the patient's sister Sugar by phone and updated her as to her condition.
[2020-09-02] MEDS: METOCLOPRAMIDE 5 MG/ML 2 ML VIAL IVP PRN (18:57)
[2020-09-02] MEDS: LEVOFLOXACIN 750MG-D5W PMX 750 MG in DEXTROSE/WATER 1 150ML.BAG IVPB SCH (20:02)
[2020-09-02] MEDS: PIPERACILLIN-TAZOBACTAM 3.375 GM in SODIUM CHLORIDE 0.9% 100 ML IVPB SCH ×2 (20:48→20:59)
[2020-09-02] MEDS: FAMOTIDINE 20 MG/2 ML VIAL IV SCH (21:02)
--- NOTE | 2020-09-02 22:13 | P.PN ---
Progress Note - Text Progress Note Date: 09/02/20 Pt couldnot be seen for a consult as she was in OR from 230pm till 6pm at time of rounds , chart reviewd and antibiotics adjusted full consult to follow in am
[2020-09-03] MEDS: KETOROLAC 15 MG/ML 1 ML VIAL IVP SCH ×4 (00:13→16:36)
[2020-09-03] MEDS: ALPRAZolam 0.25 MG TAB PO PRN ×3 (00:13→19:11)
[2020-09-03] MEDS: PIPERACILLIN-TAZOBACTAM 3.375 GM in SODIUM CHLORIDE 0.9% 100 ML IVPB SCH ×4 (00:50→23:37)
[2020-09-03] MEDS: metroNIDAZOLE-NS PMX 500 MG in SALINE 1 100ML.BAG IVPB SCH ×4 (03:43→21:44)
[2020-09-03 06:06] LABS: Basophils % (A) 0 %; Eosinophils % (A) 0 %; HGB 11.1 gm/dL (11.4-16.0); Lymphocytes # (A) 0.5 k/uL (1.0-4.8); Lymphocytes % (A) 3 %; MCH 32.9 pg (25.0-35.0); MCHC 33.7 g/dL (31.0-37.0); MCV 97.6 fL (80.0-100.0); Mean Platelet Volume 8.9; Monocytes # (A) 0.6 k/uL (0-1.0); Monocytes % (A) 4 %; Neutrophils # (A) 14.1 k/uL (1.3-7.7); Neutrophils % (A) 93 %; Platelet Count 322 k/uL (150-450); RBC 3.38 m/uL (3.80-5.40); RDW 11.7 % (11.5-15.5); WBC 15.2 k/uL (3.8-10.6)
[2020-09-03] MEDS: SODIUM CHLORIDE 0.9% 1,000 ML IV SCH (07:26)
[2020-09-03] MEDS: PANTOPRAZOLE 40 MG/10 ML VIAL IVP SCH (07:27)
[2020-09-03] MEDS: NICOTINE 14MG/24HR PATCH TRANSDERM SCH (07:27)
[2020-09-03] MEDS: HEPARIN SODIUM,PORCINE 5,000 UNIT/ML 1 ML VIAL SQ SCH ×2 (07:27→19:11)
[2020-09-03] MEDS: amLODIPine 10 MG TAB PO SCH (07:27)
[2020-09-03] MEDS: FAMOTIDINE 20 MG/2 ML VIAL IV SCH ×2 (07:27→19:11)
--- NOTE | 2020-09-03 08:37 | P.PN ---
Progress Note - Text Progress Note Date: 09/03/20 Anesthesia Epidural Progress Note: Pt S/P Exploratory Laparotomy for perforated diverticulum per Dr. Lara yesterday evening. POD#1, Epidural Day #2. Infusion running without difficulty @ 8cc/hr. Good analgesia noted with VAS ranging from 1-4, depending upon activity. No significant side effects noted. Insertion site looks ok, without signs of bleeding or inflammation. Will continue current care for additional 1-2 days and follow.
[2020-09-03 10:21] LABS: African American GFR (CKD) 115.6 (60.0-200.0); Anion Gap 10.8 mmol/L (4.00-12.00); Calcium 8.3 mg/dL (8.7-10.3); Carbon Dioxide 23.2 mmol/L (21.6-31.8); Non-African American GFR(CKD) 99.8 (60.0-200.0); Potassium 3.9 mmol/L (3.5-5.5)
--- NOTE | 2020-09-03 10:36 | P.PN ---
Subjective Progress Note Date: 09/03/20 Principal diagnosis: Diverticulitis Patient doing well today. Her pain is well-controlled with the epidural. White blood cell count 15.2, hemoglobin 11.1. No significant ostomy function. Serosanguineous drainage from the wick sites. Objective - Vital Signs Vital signs: Vital Signs Temp 98.0 F 09/03/20 08:10 Pulse 69 09/03/20 08:10 Resp 18 09/03/20 08:10 BP 137/74 09/03/20 08:10 Pulse Ox 91 L 09/03/20 08:10 Intake & Output 09/02/20 09/03/20 09/03/20 18:59 06:59 18:59 Intake Total 1416 650 Output Total 330 550 Balance 1086 100 Intake: IV 1416 650 Output: Urine 230 550 Estimated Blood Loss 100 Other: Voiding Method Indwelling Catheter # Voids 3 - Exam Abdomen: Soft, nondistended, dressing with mild drainage, ostomy pink - Labs CBC & Chem 7: 09/03/20 05:39 09/03/20 05:39 Labs: Abnormal Lab Results - Last 24 Hours (Table) 09/03/20 09/03/20 Range/Units 05:39 05:39 WBC 15.2 H (3.8-10.6) k/uL RBC 3.38 L (3.80-5.40) m/uL Hgb 11.1 L (11.4-16.0) gm/dL Hct 33.0 L (34.0-46.0) % Neutrophils # 14.1 H (1.3-7.7) k/uL Lymphocytes # 0.5 L (1.0-4.8) k/uL Glucose 141 H (70-110) mg/dL Calcium 8.3 L (8.7-10.3) mg/dL Microbiology - Last 24 Hours (Table) 08/30/20 19:39 Blood Culture - Preliminary Blood No Growth after 72 hours 08/30/20 19:29 Blood Culture - Preliminary Blood No Growth after 72 hours Assessment and Plan (1) Diverticulitis Narrative/Plan: Patient doing well at this time. Continue clear liquid diet only. Gradually increase activity. Keep epidural. Continue broad-spectrum antibiotics. Current Visit: Yes Status: Acute Code(s): K57.92 - DVTRCLI OF INTEST, PART UNSP, W/O PERF OR ABSCESS W/O BLEED SNOMED Code(s): 825526986
--- NOTE | 2020-09-03 16:35 | PN ---
PROGRESS NOTE DATE OF SERVICE: 09/03/2020 This 60-year-old woman was admitted with acute diverticulitis, also had features of diverticular perforation. Patient underwent sigmoid colectomy with end colostomy, incidental appendectomy and mobilization of the splenic flexure and colostomy and mobilization of the splenic flexure by Dr. Lara. The patient being closely monitored at this time. The white count is elevated to 15.2. Patient is on broad-spectrum IV antibiotics. Multiple consultants are following the patient closely. The past medical history reviewed. REVIEW OF SYSTEMS: CARDIOVASCULAR SYSTEM: No angina or palpitations. RESPIRATORY: As mentioned earlier. GI: As mentioned earlier. : No dysuria. NERVOUS SYSTEM: No numbness or weakness. CURRENT MEDICATIONS: Reviewed and include: 1. [place]. 2. Xanax. 3. Cepacol. 4. Benadryl. 5. Pepcid. 6. Ultram. 7. Narcan. 8. Habitrol. 9. Protein. 10.Zosyn. 11.Doses are reviewed. PHYSICAL EXAM: Patient alert and oriented times three. Pulse is 69. Blood pressure 137/74, respiration 18, temperature 98 degrees, pulse ox 91% on 3 L. HEENT is conjunctivae normal. Neck: No JVD. CARDIOVASCULAR: S1, S2 muffled. Respirations: Breath sounds diminished in the bases. No rhonchi. No crackles. ABDOMEN: Soft. Status post surgery. LEGS: No edema. No swelling. NERVOUS SYSTEM: No focal deficits. LAB STUDIES: WBC 15.2, hemoglobin 11.1. ASSESSMENT: 1. Acute sigmoid diverticulitis with perforated sigmoid diverticulitis status post sigmoid colectomy with end-colostomy incisional appendectomy and homeless splenic flexure with possible sepsis present on admission. 2. Increased WBC. 3. History of recent anterior cervical disc decompression and fusion C3-4, C4-5 and C5- 6 with herniated nucleus pulposus, cervical stenosis. 4. History of hypertension. 5. Mild hyponatremia. 6. History of cervical cancer in 20s. 7. Hysterectomy. 8. History of back surgery, degenerative joint disease. 9. History of anxiety, depression. 10.Continued ongoing nicotine dependence. 11.Increased WBC, improved. 12.Anemia, normocytic anemia of chronic disease. RECOMMENDATIONS AND DISCUSSION: Recommend to continue current management and symptomatic treatment. Continue with incentive spirometry. DVT prophylaxis. Broad-spectrum IV antibiotics. Continue the rest of the medications. Otherwise, closely follow. Proton pump inhibitors and closely follow with surgery, Infectious Disease. Guarded prognosis. Further recommendations to follow. MMODL / IJN: [id number] /
[2020-09-03] MEDS: MUPIROCIN 2% OINT 22 GM TUBE TOPICAL SCH (19:12)
[2020-09-04] MEDS: KETOROLAC 15 MG/ML 1 ML VIAL IVP SCH ×4 (00:38→17:15)
[2020-09-04] MEDS: metroNIDAZOLE-NS PMX 500 MG in SALINE 1 100ML.BAG IVPB SCH ×4 (04:11→21:38)
[2020-09-04] MEDS: SODIUM CHLORIDE 0.9% 1,000 ML IV SCH ×2 (04:50→23:23)
[2020-09-04] MEDS: ROPIVACAINE 250 MG, HYDROMORPHONE (PF) 5 MG in SODIUM CHLORIDE 0.9% 200 ML EPIDURAL PRN (05:46)
[2020-09-04 06:42] LABS: Basophils % (A) 0 %; Eosinophils % (A) 0 %; HCT 28.9 % (34.0-46.0); HGB 9.8 gm/dL (11.4-16.0); Lymphocytes # (A) 1.1 k/uL (1.0-4.8); Lymphocytes % (A) 8 %; MCH 32.8 pg (25.0-35.0); MCHC 33.7 g/dL (31.0-37.0); MCV 97.4 fL (80.0-100.0); Mean Platelet Volume 8.5; Monocytes # (A) 0.7 k/uL (0-1.0); Monocytes % (A) 5 %; Neutrophils # (A) 12.4 k/uL (1.3-7.7); Neutrophils % (A) 86 %; Platelet Count 316 k/uL (150-450); RBC 2.97 m/uL (3.80-5.40); RDW 11.8 % (11.5-15.5); WBC 14.4 k/uL (3.8-10.6)
--- NOTE | 2020-09-04 06:49 | P.ANPRN ---
Procedure Note - Anesthesia - Epidural/Spinal Epidural Continuous Date of Procedure: 09/02/20 Procedure Start Time: 13:20 Procedure Stop Time: 13:36 Location of Patient: PreOp Indication: Requested by Surgeon Sedation Type: Sedate with meaningful contact maintained Preparation: Sterile Prep Position: Sitting Catheter Depth at Skin (cm): 15 Catheter: Indwelling Needle Guage: 18 Injectate: Test Dose Lidocaine1.5% w/1:200,000 epi Blood Aspirated: No Pain Paresthesia on Injection Noted: No Events: Uneventful and Well Tolerated (Atraumatic, aseptic insertion tecnique per Dr. Regulo Gupta)
--- NOTE | 2020-09-04 06:55 | P.PN ---
Progress Note - Text Progress Note Date: 09/04/20 Patient seen/examined. Resting comfortably. Epidural infusion running without incident at 6cc/hr. Good analgesia noted, with VAS ranging from 1-3 depending upon level of activity. Minimal side effects noted. Insertion site looks good, without signs of infection or inflammation. Will continue current care and follow for now.
[2020-09-04] MEDS: FAMOTIDINE 20 MG/2 ML VIAL IV SCH ×2 (08:16→21:37)
[2020-09-04] MEDS: HEPARIN SODIUM,PORCINE 5,000 UNIT/ML 1 ML VIAL SQ SCH ×2 (08:16→21:37)
[2020-09-04] MEDS: NICOTINE 14MG/24HR PATCH TRANSDERM SCH (08:17)
[2020-09-04] MEDS: PIPERACILLIN-TAZOBACTAM 3.375 GM in SODIUM CHLORIDE 0.9% 100 ML IVPB SCH ×2 (08:17→15:15)
[2020-09-04] MEDS: PANTOPRAZOLE 40 MG/10 ML VIAL IVP SCH (08:17)
[2020-09-04] MEDS: amLODIPine 10 MG TAB PO SCH (08:17)
[2020-09-04] MEDS: MUPIROCIN 2% OINT 22 GM TUBE TOPICAL SCH ×3 (08:18→21:37)
[2020-09-04] MEDS: ALPRAZolam 0.25 MG TAB PO PRN ×2 (10:25→15:19)
--- NOTE | 2020-09-04 10:47 | P.PN ---
Subjective Progress Note Date: 09/04/20 CHIEF COMPLAINT: Abdominal pain HISTORY OF PRESENT ILLNESS: Patient is status post Sigmoid colectomy with end colostomy, incidental appendectomy, mobilization splenic flexure for perforated sigmoid diverticulitis. Patient reports that her pain is controlled with the epidural. She is on Flagyl and Zosyn. Currently tolerating a clear liquid diet. She does have air present in her bag. Her incision dressing is saturated with serosanguineous fluid. Afebrile. WBC has decreased from 15.2-14.4 hemoglo bin 9.8 PHYSICAL EXAM: VITAL SIGNS: Reviewed. GENERAL: Well-developed in no acute distress. HEENT: No sclera icterus. Extraocular movements grossly intact. Moist buccal mucosa. Head is atraumatic, normocephalic. ABDOMEN: Soft. Mildly distended. Nontender. Colostomy bag located on the left with air present. Ostomy pink. There is blood drainage. No stool. Incision site is clean. The dressing was saturated with a serosanguineous fluid. Patient has 3 carlos present. NEUROLOGIC: Alert and oriented. Cranial nerves II through XII grossly intact. ASSESSMENT: 1. Perforated sigmoid diverticulitis status post sigmoid colectomy with end colostomy, incidental appendectomy, mobilization splenic flexure PLAN: -Continue epidural for pain control -Continue antibiotics -Continue clear liquid diet -Encourage patient to ambulate and use incentive spirometer -Patient is followed by Dr. Espitia due to recent cervical spine surgery -GI prophylaxis Protonix and DVT prophylaxis subcu heparin Physician Ethanol Operations Manager note has been reviewed by physician. Signing provider agrees with the documented findings, assessment, and plan of care. Objective - Vital Signs Vital signs: Vital Signs Temp 98.3 F 09/04/20 08:00 Pulse 57 L 09/04/20 08:00 Resp 20 09/04/20 08:00 BP 107/61 09/04/20 08:00 Pulse Ox 94 L 09/04/20 08:00 Intake & Output 09/03/20 09/04/20 09/04/20 18:59 06:59 18:59 Output Total 300 1200 Balance -300 -1200 Output: Urine 300 1200 Other: Voiding Method Indwelling Catheter - Labs CBC & Chem 7: 09/04/20 05:58 09/03/20 05:39 Labs: Abnormal Lab Results - Last 24 Hours (Table) 09/04/20 Range/Units 05:58 WBC 14.4 H (3.8-10.6) k/uL RBC 2.97 L (3.80-5.40) m/uL Hgb 9.8 L (11.4-16.0) gm/dL Hct 28.9 L (34.0-46.0) % Neutrophils # 12.4 H (1.3-7.7) k/uL Microbiology - Last 24 Hours (Table) 08/30/20 19:39 Blood Culture - Preliminary Blood No Growth after 96 hours 08/30/20 19:29 Blood Culture - Preliminary Blood No Growth after 96 hours
--- NOTE | 2020-09-04 11:57 | P.PN ---
<Rich Grimaldo - Last Filed: 09/04/20 11:54> Progress Note - Text Progress Note Date: 09/04/20 Orthopedic Spine: History of present illness: Patient is a pleasant 60-year-old female who is seen at the bedside following anterior cervical decompression and fusion performed on 08/15/2020. Postoperatively she had been taking [place] for pain control. She became constipated. She followed with her primary care provider. [place] was discontinued and she was started on Flexeril and milk of magnesia. After the discontinuation of [place] she did have difficulty with pain control most significantly at her cervical spine. She continued to have difficulty with a bowel movement. She states after milk of magnesia she became significantly sick. She states her family found her on the floor. She was brought to the hospital for further evaluation. She's been treated for perforated sigmoid diverticulitis and underwent surgical intervention with sigmoid colectomy with end colostomy. In regards to her cervical spine she is not currently complaining of any significant pain at the surgical site. She has good range of motion bilateral upper extremities. Her most significant pain continues to be in regards to her abdomen. [place]h catheter remains intact. She was originally scheduled for outpatient follow-up evaluation today, 09/04/2020. Physical Exam Cervical Fusion: Status post surgical day number 20 Patient is awake, alert, and oriented 3 Vital signs stable Good chest excursion with deep inspiration and expiration Adding Machine Mechanic strength, thumb strength, interosseous strength, biceps strength, triceps strength, and shoulder strength positive sustained bilaterally Patient is able to move arms independently throughout range of motion the bedside without difficulty. Incision site is clean, dry, and intact; no erythema, purulence, or signs of infection No pain with palpation around the surgical site No significant swelling, bruising, or erythema around the surgical site Assessment: C3-4, C4-5, and C5-6 anterior cervical decompression and fusion Cervical pain Perforated sigmoid diverticulitis Status post sigmoid colectomy with end colostomy. Plan: 1. Ambulate as tolerated in regards to her cervical spine; patient ambulation status will be monitored by general surgery 2. Continue pain control with medications as prescribed by general surgery 3. Patient may shower without a dressing intact at this time 4. In all surgery and medicine to continue following the patient for her other medical diagnoses 5. We will plan to obtain postop cervical x-rays with AP and lateral views. If her hardware at her cervical spine remains intact without any change, patient will be cleared for discharge home from an orthopedic spine standpoint. 6. Patient was originally scheduled for follow-up evaluation today, 09/04/2020, in the outpatient setting. We will change his appointment and we'll plan to have the patient follow-up with Rich Grimaldo PA-C or Dr. Jon Espitia at [facility] in 4 weeks following discharge <Delbert Espitia - Last Filed: 09/04/20 12:12> Progress Note - Text The patient is seen and examined today at bedside. I agree with the above. I reviewed her studies x-ray of her cervical spine that we ordered today as well. The hardware is in good alignment and good position. It appears be healing appropriately. There is no evidence of loosening or change. She should continue her management in regards to her bowel issues. She will continue management as per surgery. From a spine standpoint is okay for her to continue with her occasions and increase her activity to ambulation. I can plan to follow her up in approximate 4 weeks' time for recheck evaluation.
--- NOTE | 2020-09-04 12:11 | XR ---
EXAMINATION TYPE: XR cervical spine limited DATE OF EXAM: 09/04/2020 COMPARISON: NONE HISTORY: Postop TECHNIQUE: 2 view submitted FINDINGS: Postsurgical change with anterior fixation extending from levels C3-C6. Slight retrolisthes is of C3 relative to C4. Degenerative disc disease C6-C7. Mild prominence of the prevertebral soft ti ssue structures at the C5-6 level may be postoperative. Calcification soft tissue the neck may be rel ated to carotid artery calcification. IMPRESSION: Postoperative change as discussed above.
[2020-09-04 12:49] VITALS: BMI 24.7
--- NOTE | 2020-09-04 16:21 | PN ---
PROGRESS NOTE DATE OF SERVICE: 09/04/2020 REASON FOR FOLLOWUP: Abdominal abscess from perforated diverticulitis. INTERVAL HISTORY: Patient is currently afebrile. Patient is breathing comfortably. The patient's pain to the abdominal area is currently controlled. Denies having any chest pain. No shortness of breath or cough. PHYSICAL EXAMINATION: Blood pressure 124/56, pulse of 94, temp 97.6, she is 93% on room air. General description is a middle-aged female lying in bed in no distress. Respiratory system: Unlabored breathing, clear to auscultation anteriorly. Heart S1, S2. Regular rate and rhythm. Abdomen soft, mildly tender. Did have output in her colostomy bag. LABS: Hemoglobin 9.1, white count 14.4. DIAGNOSTIC IMPRESSION AND PLAN: Patient with abdominal pain from perforated diverticulitis status post diverting colostomy. The patient is currently covered with Zosyn to continue while monitoring clinical course closely. MMODL / IJN: [id number] /
--- NOTE | 2020-09-04 16:40 | PN ---
PROGRESS NOTE DATE OF SERVICE: 09/04/2020. This 60-year-old woman who was admitted with acute sigmoid diverticular perforation had surgery. The patient also had recent cervical spine surgery. No chest pain. No palpitations. No fever. PHYSICAL EXAMINATION: On exam, alert and oriented x3. Pulse 74, blood pressure 112/66, respiration 20, temperature 97.6, pulse ox 93% on 3 L. HEENT: Conjunctivae normal. NECK: No jugular venous distention. CARDIOVASCULAR: S1, S2 muffled. RESPIRATORY: Breath sounds diminished at the bases. No rhonchi, no crackles. ABDOMEN: Soft. Status post recent surgery. Postoperative tenderness present otherwise. LEGS: No edema, no swelling. NERVOUS SYSTEM: No focal deficits. NECK: Status post recent surgery. LABS: WBC 14.4, hemoglobin 9.8. Other labs are noted. ASSESSMENT: 1. Acute sigmoid diverticulitis with perforated sigmoid diverticulitis, status post sigmoid colectomy as well as end-colostomy with incidental appendectomy and possible sepsis, present on admission. 2. Increased WBC. 3. History of recent anterior cervical disc decompression and fusion, C3-4, C4-5 and C5-6 with herniated nucleus pulposus and cervical stenosis. 4. History of hypertension. 5. Mild hyponatremia. 6. History of cervical cancer in 20s. 7. History of hysterectomy. 8. History of back surgery, degenerative joint disease. 9. History of anxiety, depression. 10.Continued ongoing nicotine dependence. 11.Increased WBC, improved. 12.Anemia, normocytic anemia of chronic disease. RECOMMENDATIONS AND DISCUSSION: I recommend to continue current medications, continue symptomatic treatment. Continue with incentive spirometry. Continue with broad-spectrum IV antibiotics. Cultures are negative so far. Cervical spine x-rays have been ordered by Orthopedic Surgery which showed postoperative changes. Incentive spirometry. DVT prophylaxis. Further recommendations to follow. MMODL / IJN: [id number] /
[2020-09-04] MEDS: TEMAZEPAM 15 MG CAP PO PRN (21:38)
[2020-09-05] MEDS: PIPERACILLIN-TAZOBACTAM 3.375 GM in SODIUM CHLORIDE 0.9% 100 ML IVPB SCH ×4 (00:50→23:44)
[2020-09-05] MEDS: KETOROLAC 15 MG/ML 1 ML VIAL IVP SCH ×5 (00:50→23:43)
[2020-09-05] MEDS: ALPRAZolam 0.25 MG TAB PO PRN ×3 (00:52→19:52)
[2020-09-05] MEDS: metroNIDAZOLE-NS PMX 500 MG in SALINE 1 100ML.BAG IVPB SCH ×4 (03:49→19:53)
[2020-09-05 06:58] LABS: Basophils # (A) 0.1 k/uL (0-0.2); Basophils % (A) 1 %; Eosinophils # (A) 0.2 k/uL (0-0.7); Eosinophils % (A) 2 %; Lymphocytes # (A) 1.4 k/uL (1.0-4.8); Lymphocytes % (A) 15 %; MCH 33.4 pg (25.0-35.0); MCHC 34.5 g/dL (31.0-37.0); MCV 96.9 fL (80.0-100.0); Mean Platelet Volume 7.9; Monocytes # (A) 0.6 k/uL (0-1.0); Monocytes % (A) 6 %; Neutrophils # (A) 6.9 k/uL (1.3-7.7); Neutrophils % (A) 75 %; Platelet Count 324 k/uL (150-450); RBC 2.99 m/uL (3.80-5.40); RDW 12.2 % (11.5-15.5); WBC 9.2 k/uL (3.8-10.6)
[2020-09-05] MEDS: HEPARIN SODIUM,PORCINE 5,000 UNIT/ML 1 ML VIAL SQ SCH ×2 (07:59→19:52)
[2020-09-05] MEDS: PANTOPRAZOLE 40 MG/10 ML VIAL IVP SCH (07:59)
[2020-09-05] MEDS: FAMOTIDINE 20 MG/2 ML VIAL IV SCH ×2 (07:59→19:53)
[2020-09-05] MEDS: NICOTINE 14MG/24HR PATCH TRANSDERM SCH (08:00)
[2020-09-05] MEDS: amLODIPine 10 MG TAB PO SCH (08:00)
[2020-09-05] MEDS: MUPIROCIN 2% OINT 22 GM TUBE TOPICAL SCH ×3 (08:01→20:14)
--- NOTE | 2020-09-05 09:43 | P.PN ---
Progress Note - Text Date: 09/05/2020 Time: 09:31 The patient is status post, exploratory laparotomy, colon resection, postoperative day number 3 The patient has no complaints of nausea vomiting or headache. The patient does not complain of any lower extremity numbness or weakness. The epidural is running at 6 mL per hour. VAS 2-10. The epidural will be discontinued this afternoon. Pain meds will be provided to the patient by the service.
--- NOTE | 2020-09-05 10:24 | P.PN ---
Subjective Progress Note Date: 09/05/20 CHIEF COMPLAINT: Abdominal pain HISTORY OF PRESENT ILLNESS: Patient is postop day #3 status post Sigmoid colectomy with end colostomy, incidental appendectomy, mobilization splenic flexure for perforated sigmoid diverticulitis. Patient reports that her pain is controlled with the epidural. She is on Flagyl and Zosyn. She does have air present in her bag. No stool through ostomy. Denies any nausea or vomiting. Tolerating clear liquid diet. Epidural scheduled to be discontinued today. Afebrile. WBC has normalized at 9.2. Patient was evaluated by Dr. Nupur fall for her recent cervical spine surgery. PHYSICAL EXAM: VITAL SIGNS: Reviewed. GENERAL: Well-developed in no acute distress. HEENT: No sclera icterus. Extraocular movements grossly intact. Moist buccal mucosa. Head is atraumatic, normocephalic. ABDOMEN: Soft. Mildly distended. Colostomy bag located on the left with air p resent. Ostomy pink. There is blood drainage. No stool. Incision site is clean. Dressing is clean dry and intact. Patient has 2 carlos present NEUROLOGIC: Alert and oriented. Cranial nerves II through XII grossly intact. ASSESSMENT: 1. Perforated sigmoid diverticulitis status post sigmoid colectomy with end colostomy, incidental appendectomy, mobilization splenic flexure PLAN: -Epidural will be discontinued today -Patient has [place] and Dilaudid as needed for pain -Continue antibiotics -advance diet to full liquids -Encourage patient to ambulate and use incentive spirometer -GI prophylaxis Protonix and DVT prophylaxis subcu heparin Physician Pesticide Chemist note has been reviewed by physician. Signing provider agrees with the documented findings, assessment, and plan of care. Objective - Vital Signs Vital signs: Vital Signs Temp 98.7 F 09/05/20 08:00 Pulse 63 09/05/20 08:00 Resp 20 09/05/20 08:00 BP 110/64 09/05/20 08:00 Pulse Ox 93 L 09/05/20 08:00 Intake & Output 09/04/20 09/05/20 09/05/20 18:59 06:59 18:59 Output Total 1100 Balance -1100 Weight 71.8 kg Output: Urine 1100 Other: Voiding Method Indwelling Catheter Indwelling Catheter - Labs CBC & Chem 7: 09/05/20 05:41 09/03/20 05:39 Labs: Abnormal Lab Results - Last 24 Hours (Table) 09/05/20 Range/Units 05:41 RBC 2.99 L (3.80-5.40) m/uL Hgb 10.0 L (11.4-16.0) gm/dL Hct 29.0 L (34.0-46.0) % Microbiology - Last 24 Hours (Table) 08/30/20 19:39 Blood Culture - Preliminary Blood No Growth after 120 hours 08/30/20 19:29 Blood Culture - Preliminary Blood No Growth after 120 hours
--- NOTE | 2020-09-05 15:44 | PN ---
PROGRESS NOTE DATE OF SERVICE: 09/05/2020 This 60-year-old woman who was admitted with acute sigmoid diverticulitis and perforation after surgery is being closely monitored. No chest pain. No palpitations. No fever. PHYSICAL EXAMINATION: Alert and oriented x3. Pulse is 63, blood pressure 120/64, respiration 20, temperature 98.7, pulse ox 93% on 3 L. HEENT: Conjunctivae normal. NECK: No jugular venous distention. CARDIOVASCULAR SYSTEM: S1, S2 muffled. RESPIRATORY SYSTEM: Breath sounds diminished at the bases. Scattered rhonchi and crackles. ABDOMEN: Soft, non-tender. LEGS: No edema. No swelling. NERVOUS SYSTEM: No focal deficit. LABS: WBC 9.2, hemoglobin 10. ASSESSMENT: 1. Acute sigmoid diverticulitis with perforated sigmoid diverticulitis, status post sigmoid colectomy as well as end-colostomy with incidental appendectomy and possible sepsis, present on admission. 2. Increased white count. 3. History of recent anterior cervical disc decompression and fusion, C3-4, C4-5 and C5-6, with herniated nucleus pulposus and cervical stenosis. 4. History of hypertension. 5. Mild hyponatremia. 6. History of cervical cancer in 20s. 7. History of hysterectomy. 8. History of back surgery, degenerative joint disease. 9. History of anxiety, depression. 10.Continued ongoing nicotine dependence. 11.Increased white count, improved. 12.Anemia, normocytic anemia of chronic disease. RECOMMENDATIONS AND DISCUSSION: I recommend to continue current medications, continue with the monitoring, symptomatic treatment. Continue the antibiotics. White count is improved at 9.2. Guarded prognosis. Further recommendations to follow. MMODL / IJN: [id number] /
[2020-09-05] MEDS: HYDROmorphone 1 MG/ML 1 ML SYRINGE IVP PRN ×2 (16:40→19:53)
--- NOTE | 2020-09-05 16:51 | PN ---
PROGRESS NOTE DATE OF SERVICE: 09/05/2020 REASON FOR FOLLOWUP: Abdominal abscess, perforated diverticulitis. INTERVAL HISTORY: The patient is currently afebrile. The patient is breathing comfortably. Abdominal pain is currently controlled. No chest pain, shortness of breath or cough. Complaining of some though. PHYSICAL EXAMINATION: Blood pressure 110/64 with a pulse of 63, temperature 98.7. She is 93% on 2 L nasal cannula. General description is a middle-aged female lying in bed in no distress. RESPIRATORY SYSTEM: Unlabored breathing. Clear to auscultation anteriorly. HEART: S1, S2. Regular rate and rhythm. ABDOMEN: Soft. No tenderness. LABS: Hemoglobin is 10, white count 9.2. Blood culture has been negative. DIAGNOSTIC IMPRESSION AND PLAN: Patient with significant purulent drainage reported. D-dimer, status post laparotomy and diverting colostomy. The patient's white cells normalized. Currently covered with Zosyn; to continue. Plan to finish therapy with oral medicine. Continue with supportive care. MMODL / IJN: [id number] /
[2020-09-05] MEDS: ONDANSETRON 4 MG/2 ML VIAL IVP PRN (20:12)
[2020-09-05] MEDS: SODIUM CHLORIDE 0.9% 1,000 ML IV SCH (20:13)
[2020-09-05] MEDS: METOCLOPRAMIDE 5 MG/ML 2 ML VIAL IVP PRN (23:50)
[2020-09-06] MEDS: metroNIDAZOLE-NS PMX 500 MG in SALINE 1 100ML.BAG IVPB SCH ×2 (03:57→11:07)
[2020-09-06] MEDS: KETOROLAC 15 MG/ML 1 ML VIAL IVP SCH ×2 (05:34→11:13)
[2020-09-06 06:07] LABS: Basophils # (A) 0.1 k/uL (0-0.2); Basophils % (A) 1 %; Eosinophils # (A) 0.3 k/uL (0-0.7); Eosinophils % (A) 3 %; HCT 29.2 % (34.0-46.0); Lymphocytes # (A) 1.3 k/uL (1.0-4.8); Lymphocytes % (A) 12 %; MCH 33.1 pg (25.0-35.0); MCHC 34.2 g/dL (31.0-37.0); MCV 96.8 fL (80.0-100.0); Mean Platelet Volume 7.7; Monocytes # (A) 0.7 k/uL (0-1.0); Monocytes % (A) 7 %; Neutrophils % (A) 77 %; Platelet Count 361 k/uL (150-450); RBC 3.01 m/uL (3.80-5.40); RDW 12.2 % (11.5-15.5); WBC 10.4 k/uL (3.8-10.6)
[2020-09-06] MEDS: NICOTINE 14MG/24HR PATCH TRANSDERM SCH (08:20)
[2020-09-06] MEDS: amLODIPine 10 MG TAB PO SCH (08:20)
[2020-09-06] MEDS: FAMOTIDINE 20 MG/2 ML VIAL IV SCH (08:20)
[2020-09-06] MEDS: PIPERACILLIN-TAZOBACTAM 3.375 GM in SODIUM CHLORIDE 0.9% 100 ML IVPB SCH ×3 (08:20→22:48)
[2020-09-06] MEDS: PANTOPRAZOLE 40 MG/10 ML VIAL IVP SCH (08:21)
[2020-09-06] MEDS: HEPARIN SODIUM,PORCINE 5,000 UNIT/ML 1 ML VIAL SQ SCH ×2 (08:21→20:39)
[2020-09-06] MEDS: HYDROmorphone 1 MG/ML 1 ML SYRINGE IVP PRN ×3 (08:21→20:39)
[2020-09-06] MEDS: ALPRAZolam 0.25 MG TAB PO PRN ×3 (08:21→22:48)
--- NOTE | 2020-09-06 10:19 | P.PN ---
Subjective Progress Note Date: 09/06/20 CHIEF COMPLAINT: Abdominal pain HISTORY OF PRESENT ILLNESS: Patient is postop day #4 status post Sigmoid colectomy with end colostomy, incidental appendectomy, mobilization splenic flexure for perforated sigmoid diverticulitis. Patient's epidural was discontinued yesterday. She does report abdominal pain as well as some discomfort in her neck. She has been getting the Dilaudid and [place]. She is having air through her ostomy. No stool yet. She is scheduled for ostomy teaching today she is tolerating a full liquid diet. Afebrile. WBC 10.4. PHYSICAL EXAM: VITAL SIGNS: Reviewed. GENERAL: Well-developed in no acute distress. HEENT: No sclera icterus. Extraocular movements grossly intact. Moist buccal mucosa. Head is atraumatic, normocephalic. ABDOMEN: Soft. Mildly distended. Colostomy bag located on the left with air present. Ostomy pink. There is blood drainage. No stool. Incision site is clean. Patient has 3 carlos present. Yellowish drainage noted on dressing NEUROLOGIC: Alert and oriented. Cranial nerves II through XII grossly intact. ASSESSMENT: 1. Perforated sigmoid diverticulitis status post sigmoid colectomy with end colostomy, incidental appendectomy, mobilization splenic flexure PLAN: -Advance diet to regular -Patient has [place] and Dilaudid as needed for pain -Continue antibiotics -Encourage patient to ambulate and use incentive spirometer -Ostomy teaching today -GI prophylaxis Protonix and DVT prophylaxis subcu heparin Physician Photographic Press Screwmaker note has been reviewed by physician. Signing provider agrees with the documented findings, assessment, and plan of care. Objective - Vital Signs Vital signs: Vital Signs Temp 98.7 F 09/06/20 08:00 Pulse 67 09/06/20 08:00 Resp 19 09/06/20 08:00 BP 136/79 09/06/20 08:00 Pulse Ox 95 09/06/20 08:00 Intake & Output 09/05/20 09/06/20 09/06/20 18:59 06:59 18:59 Output Total 4400 Balance -4400 Output: Urine 4400 Uretheral (Trinh) 2200 Other: Voiding Method Indwelling Catheter Toilet # Voids 1 - Labs CBC & Chem 7: 09/06/20 05:35 09/03/20 05:39 Labs: Abnormal Lab Results - Last 24 Hours (Table) 09/06/20 Range/Units 05:35 RBC 3.01 L (3.80-5.40) m/uL Hgb 10.0 L (11.4-16.0) gm/dL Hct 29.2 L (34.0-46.0) % Neutrophils # 8.0 H (1.3-7.7) k/uL Microbiology - Last 24 Hours (Table) 08/30/20 19:29 Blood Culture - Final Blood No Growth after 144 hours 08/30/20 19:39 Blood Culture - Final Blood No Growth after 144 hours
[2020-09-06] MEDS: MUPIROCIN 2% OINT 22 GM TUBE TOPICAL SCH ×3 (11:09→22:49)
[2020-09-06] MEDS: SODIUM CHLORIDE 0.9% 1,000 ML IV SCH (16:26)
[2020-09-06] MEDS: metroNIDAZOLE 500 MG TAB PO SCH ×2 (17:38→22:48)
--- NOTE | 2020-09-06 17:53 | PN ---
PROGRESS NOTE DATE OF SERVICE: 09/06/2020 This 60-year-old woman who was admitted with acute sigmoid diverticulitis and perforation had surgery. The patient complains of extreme weakness. No chest pain. No palpitations. No fever. PHYSICAL EXAMINATION: Alert and oriented x3. Pulse 76, blood pressure 114/65, respirations 17, temperature 98.8, pulse ox 94% on 2 L. HEENT: Conjunctivae normal. NECK: No jugular venous distention. CARDIOVASCULAR SYSTEM: S1, S2 muffled. RESPIRATORY SYSTEM: Breath sounds diminished at the bases. A few scattered rhonchi. ABDOMEN: Soft. Status post surgery. NERVOUS SYSTEM: No focal deficit. LABS: WBC 10.2, hemoglobin is 10. ASSESSMENT: 1. Acute sigmoid diverticulitis, status post sigmoid colectomy as well as end- colostomy with incidental appendectomy and possible sepsis, present on admission. 2. Increased white count. 3. History of recent anterior cervical disc compression and fusion at C3-4, C4-5 and C5-6 with herniated nucleus pulposus and cervical stenosis. 4. History of hypertension. 5. Mild hyponatremia. 6. History of cervical cancer in 20s. 7. History of hysterectomy. 8. History of back surgery, degenerative joint disease. 9. History of anxiety, depression. 10.Continued ongoing nicotine dependence. 11.Increased white count, improved. 12.Anemia, normocytic anemia of chronic disease. RECOMMENDATIONS AND DISCUSSION: I recommend to continue current medications, continue with the monitoring, symptomatic treatment. Continue with empiric antibiotics. I would also recommend COVID-19 also to complete the workup. Further recommendations to follow. MMODL / IJN: [id number] /
[2020-09-06] MEDS: FAMOTIDINE 20 MG TAB PO SCH (20:39)
[2020-09-06] MEDS: HYDROcodone/APAP 5-325MG 1 EACH TAB PO PRN (22:48)
--- NOTE | 2020-09-07 04:10 | PN ---
PROGRESS NOTE DATE OF SERVICE: 09/06/2020 REASON FOR FOLLOWUP: Abdominal abscess from perforated diverticulitis. INTERVAL HISTORY: The patient is currently afebrile. The patient is breathing comfortably. The patient denies having any chest pain. No shortness of breath. Occasional cough. Abdominal pain is currently controlled. No vomiting. Did have output in her colostomy bag. PHYSICAL EXAMINATION: Blood pressure 114/65 with a pulse of 76, temperature 98.8. She is 95% on 2 L nasal cannula. General description is a middle-aged female lying in bed in no distress. Respiratory system: Unlabored breathing, clear to auscultation anteriorly. Heart S1, S2. Regular rate and rhythm. Abdomen soft, no tenderness. LABS: White count normal. Blood culture has been negative. DIAGNOSTIC IMPRESSION AND PLAN: Patient with secondary peritonitis from perforated diverticulitis in this patient who does have MULTIPLE ANTIBIOTIC ALLERGIES. The patient is currently covered with Zosyn and has shown overall clinical improvement. She has refused IV antibiotic therapy outpatient because of the cost. Planning for Ceftin and Flagyl for 10 days on discharge and close outpatient follow up. MMODL / IJN: [id number] /
[2020-09-07] MEDS: HYDROmorphone 1 MG/ML 1 ML SYRINGE IVP PRN ×3 (05:36→23:16)
[2020-09-07 06:59] LABS: Basophils % (A) 0 %; Eosinophils # (A) 0.2 k/uL (0-0.7); Eosinophils % (A) 2 %; HCT 30.8 % (34.0-46.0); HGB 10.3 gm/dL (11.4-16.0); Lymphocytes # (A) 1.3 k/uL (1.0-4.8); Lymphocytes % (A) 13 %; MCH 32.1 pg (25.0-35.0); MCHC 33.4 g/dL (31.0-37.0); Mean Platelet Volume 7.6; Monocytes # (A) 0.7 k/uL (0-1.0); Monocytes % (A) 6 %; Neutrophils # (A) 7.9 k/uL (1.3-7.7); Neutrophils % (A) 77 %; Platelet Count 387 k/uL (150-450); RDW 12.7 % (11.5-15.5); WBC 10.2 k/uL (3.8-10.6)
[2020-09-07 07:09] LABS: African American GFR (CKD) >90 (>60 ml/min/1.73 sqM); Anion Gap 2 mmol/L; Blood Urea Nitrogen 3 mg/dL (7-17); Carbon Dioxide 30 mmol/L (22-30); Chloride 106 mmol/L (98-107); Glucose 97 mg/dL (74-99); Non-African American GFR(CKD) >90 (>60 ml/min/1.73 sqM); Potassium 3.3 mmol/L (3.5-5.1); Sodium 138 mmol/L (137-145)
[2020-09-07] MEDS ORDERED: PANTOPRAZOLE 40 MG TABLET PO SCH (07:30)
[2020-09-07] MEDS: PIPERACILLIN-TAZOBACTAM 3.375 GM in SODIUM CHLORIDE 0.9% 100 ML IVPB SCH ×3 (07:51→23:17)
[2020-09-07] MEDS: FAMOTIDINE 20 MG TAB PO SCH ×2 (07:51→21:02)
[2020-09-07] MEDS: amLODIPine 10 MG TAB PO SCH (07:51)
[2020-09-07] MEDS: metroNIDAZOLE 500 MG TAB PO SCH ×4 (07:51→21:02)
[2020-09-07] MEDS: HYDROcodone/APAP 5-325MG 1 EACH TAB PO PRN ×2 (07:51→16:01)
[2020-09-07] MEDS: NICOTINE 14MG/24HR PATCH TRANSDERM SCH (07:52)
[2020-09-07] MEDS: MUPIROCIN 2% OINT 22 GM TUBE TOPICAL SCH ×3 (07:52→21:03)
[2020-09-07] MEDS: HEPARIN SODIUM,PORCINE 5,000 UNIT/ML 1 ML VIAL SQ SCH ×2 (07:52→21:02)
[2020-09-07] MEDS ORDERED: POTASSIUM CHLORIDE ER 20 MEQ TAB.ER PO STA (08:11)
[2020-09-07] MEDS: SODIUM CHLORIDE 0.9% 1,000 ML IV SCH (09:01)
[2020-09-07] MEDS ORDERED: Magnesium Replacement Protocol 1 EACH MISC MISCELLANE PRN (10:09)
[2020-09-07] MEDS ORDERED: Potassium Replacement Protocol 1 EACH MISC MISCELLANE PRN (10:09)
--- NOTE | 2020-09-07 10:59 | P.PN ---
Subjective Progress Note Date: 09/07/20 CHIEF COMPLAINT: Abdominal pain HISTORY OF PRESENT ILLNESS: Patient is postop day #5 status post Sigmoid colectomy with end colostomy, incidental appendectomy, mobilization splenic flexure for perforated sigmoid diverticulitis. Patient started on a regular diet yesterday. She does report increase in abdominal pain on the right side of her abdomen earlier this morning. She feels that it was likely gas pains. She did feel the gas move. Her pain has decreased. She reports that the pain medication is helping. She has had air through her ostomy but no stools. She denies any nausea or vomiting. Afebrile. WBC 10.2 hemoglobin 10.3 potassium 3.3. patient did have ostomy teaching yesterday PHYSICAL EXAM: VITAL SIGNS: Reviewed. GENERAL: Well-developed in no acute distress. HEENT: No sclera icterus. Extraocular movements grossly intact. Moist buccal mucosa. Head is atraumatic, normocephalic. ABDOMEN: Soft. Mildly distended. Tenderness with palpation. Colostomy bag located on the left. Ostomy pink. There is blood drainage. No stool. Incision site is clean. Patient has 3 carlos present. Dressing clean dry and intact NEUROLOGIC: Alert and oriented. Cranial nerves II through XII grossly intact. ASSESSMENT: 1. Perforated sigmoid diverticulitis status post sigmoid colectomy with end colostomy, incidental appendectomy, mobilization splenic flexure 2. Hypokalemia PLAN: -Due to increased abdominal pain will cut patient's diet back to full liquids -Patient has [place] and Dilaudid as needed for pain -Continue antibiotics -Encourage patient to ambulate and use incentive spirometer -Replace potassium -GI prophylaxis Protonix and DVT prophylaxis subcu heparin Physician Intensivist note has been reviewed by physician. Signing provider agrees with the documented findings, assessment, and plan of care. Objective - Vital Signs Vital signs: Vital Signs Temp 99.0 F 09/07/20 07:25 Pulse 69 09/07/20 07:25 Resp 19 09/07/20 07:25 BP 129/79 09/07/20 07:25 Pulse Ox 94 L 09/07/20 07:25 Intake & Output 09/06/20 09/07/20 09/07/20 18:59 06:59 18:59 Intake Total 340 240 Balance 340 240 Intake: Intake, IV Titration 100 Amount Piperacillin-Tazobactam 3 100 .375 gm In Sodium Chloride 0.9% 100 ml @ 25 mls/hr IVPB Q8HR [facility] Rx# :[id number] Oral 240 240 Other: Voiding Method Toilet # Voids 2 # Bowel Movements 1 1 - Labs CBC & Chem 7: 09/07/20 06:13 09/07/20 06:13 Labs: Abnormal Lab Results - Last 24 Hours (Table) 09/07/20 09/07/20 Range/Units 06:13 06:13 RBC 3.20 L (3.80-5.40) m/uL Hgb 10.3 L (11.4-16.0) gm/dL Hct 30.8 L (34.0-46.0) % Neutrophils # 7.9 H (1.3-7.7) k/uL Potassium 3.3 L (3.5-5.1) mmol/L BUN 3 L (7-17) mg/dL Calcium 8.0 L (8.4-10.2) mg/dL
[2020-09-07] MEDS: ONDANSETRON 4 MG/2 ML VIAL IVP PRN (12:18)
[2020-09-07] MEDS: ALPRAZolam 0.25 MG TAB PO PRN ×2 (12:25→21:02)
--- NOTE | 2020-09-07 15:18 | PN ---
PROGRESS NOTE DATE OF SERVICE: 09/07/2020 This 60-year-old woman who was admitted with acute sigmoid diverticulitis, had surgery the patient closely monitored at this time. No bowel movements are noted. No chest pain. No palpitations. No fever. White count is trended towards normal. PHYSICAL EXAMINATION: Alert and oriented x3. Pulse 69, blood pressure 129/79, respiration 18, temperature 99 degrees, pulse ox 94% on 2 L. HEENT: Conjunctivae normal. NECK: No jugular venous distention. CARDIOVASCULAR: S1, S2 muffled. RESPIRATORY: Breath sounds diminished at the bases. No rhonchi, no crackles. ABDOMEN: Soft, status post surgery. LEGS: No edema. No swelling. NERVOUS SYSTEM: No focal deficits. LABS: WBC 10.2, hemoglobin 10.3, potassium 3.3. COVID-19 is negative. ASSESSMENT: 1. Acute sigmoid diverticulitis status post sigmoid colectomy as well as end-colostomy with incidental appendectomy as well as possible sepsis, present on admission. 2. Increased WBC. 3. Hypokalemia. 4. History of recent anterior cervical disc compression and fusion C3-4, C4-5, C5-6 with herniated nucleus pulposus and cervical stenosis. 5. History of hypertension. 6. Mild hyponatremia. 7. History of cervical cancer in 20s. 8. History of hysterectomy. 9. History of back surgery, degenerative joint disease. 10.History of anxiety, depression. 11.Continued ongoing nicotine dependence. 12.Increased WBC, improved. 13.Anemia, normocytic anemia of chronic disease. RECOMMENDATIONS AND DISCUSSION: Recommend to continue current medications, continue symptomatic treatment. Otherwise at this time, supplement potassium. Repeat labs. Continue the IV antibiotics. Diet per Surgery. Further recommendations to follow. MMODL / IJN: [id number] /
--- NOTE | 2020-09-07 23:05 | PN ---
PROGRESS NOTE DATE OF SERVICE: 09/07/2020 REASON FOR FOLLOWUP: Complicated diverticulitis and abdominal abscess. INTERVAL HISTORY: Patient is currently afebrile. The patient is breathing comfortably. Has been complaining of gas and some , but no vomiting. No chest pain, shortness of breath or cough. PHYSICAL EXAMINATION: Blood pressure 146/83 with a pulse of 72, temperature 98.4. She is 93% on room air. General description is a middle-aged female lying in bed in no distress. Respiratory system: Unlabored breathing. Clear to auscultation anteriorly. Heart S1, S2. Regular rate. ABDOMEN: Soft. No tenderness. No guarding. No rigidity. LABS: Hemoglobin is 10 with white count 10.0, BUN of 3, creatinine 0.54. Blood culture has been negative. DIAGNOSTIC IMPRESSION AND PLAN: Patient with continued diverticulitis with perforation and abscess status post drainage of the abscess and diverting colostomy. Patient is currently covered with Zosyn to continue while inpatient. Transition to oral Ceftin and Flagyl on discharge. Continue supportive care. MMODL / IJN: [id number] /
[2020-09-07] MEDS: METOCLOPRAMIDE 5 MG/ML 2 ML VIAL IVP PRN (23:16)
[2020-09-08] MEDS: HYDROcodone/APAP 5-325MG 1 EACH TAB PO PRN ×3 (04:53→20:46)
[2020-09-08 06:55] LABS: Basophils % (A) 0 %; Eosinophils # (A) 0.3 k/uL (0-0.7); Eosinophils % (A) 3 %; HCT 31.9 % (34.0-46.0); HGB 10.8 gm/dL (11.4-16.0); Lymphocytes # (A) 1.6 k/uL (1.0-4.8); Lymphocytes % (A) 15 %; MCH 32.2 pg (25.0-35.0); MCHC 33.8 g/dL (31.0-37.0); MCV 95.4 fL (80.0-100.0); Mean Platelet Volume 7.6; Monocytes # (A) 0.6 k/uL (0-1.0); Monocytes % (A) 6 %; Neutrophils # (A) 7.7 k/uL (1.3-7.7); Neutrophils % (A) 74 %; Platelet Count 434 k/uL (150-450); RBC 3.35 m/uL (3.80-5.40); RDW 12.8 % (11.5-15.5); WBC 10.4 k/uL (3.8-10.6)
[2020-09-08] MEDS: HEPARIN SODIUM,PORCINE 5,000 UNIT/ML 1 ML VIAL SQ SCH ×2 (07:06→20:46)
[2020-09-08] MEDS: PANTOPRAZOLE 40 MG/10 ML VIAL IVP SCH (07:06)
[2020-09-08] MEDS: amLODIPine 10 MG TAB PO SCH (07:07)
[2020-09-08] MEDS: PIPERACILLIN-TAZOBACTAM 3.375 GM in SODIUM CHLORIDE 0.9% 100 ML IVPB SCH ×3 (07:07→23:22)
[2020-09-08] MEDS: NICOTINE 14MG/24HR PATCH TRANSDERM SCH (07:07)
[2020-09-08] MEDS: FAMOTIDINE 20 MG TAB PO SCH ×2 (07:07→20:46)
[2020-09-08] MEDS: metroNIDAZOLE 500 MG TAB PO SCH ×4 (07:07→20:46)
[2020-09-08] MEDS: SODIUM CHLORIDE 0.9% 1,000 ML IV SCH (07:07)
[2020-09-08] MEDS: MUPIROCIN 2% OINT 22 GM TUBE TOPICAL SCH ×3 (07:08→20:33)
[2020-09-08] MEDS: HYDROmorphone 1 MG/ML 1 ML SYRINGE IVP PRN (07:11)
[2020-09-08] MEDS: ONDANSETRON 4 MG/2 ML VIAL IVP PRN ×2 (07:17→21:06)
[2020-09-08 10:10] LABS: African American GFR (CKD) 122.8 (60.0-200.0); Anion Gap 7.5 mmol/L (4.00-12.00); Calcium 8.1 mg/dL (8.7-10.3); Carbon Dioxide 28.5 mmol/L (21.6-31.8); Magnesium 1.9 mg/dL (1.5-2.4); Non-African American GFR(CKD) 105.9 (60.0-200.0); Potassium 3.8 mmol/L (3.5-5.5)
--- NOTE | 2020-09-08 10:19 | P.PN ---
Subjective Progress Note Date: 09/08/20 CHIEF COMPLAINT: Abdominal pain HISTORY OF PRESENT ILLNESS: Patient is postop day #6 status post Sigmoid colectomy with end colostomy, incidental appendectomy, mobilization splenic flexure for perforated sigmoid diverticulitis. Patient did have a small hard bowel movement through her ostomy. She is having minimal gas through her ostomy. She is still reporting abdominal pain. Controlled with pain medicine. She has been ambulating and using her incentive spirometer. She is on a full liquid diet. Has had poor appetite. She denies any nausea or vomiting. Afebrile. WBC 10.4 potassium 3.8 PHYSICAL EXAM: VITAL SIGNS: Reviewed. GENERAL: Well-developed in no acute distress. HEENT: No sclera icterus. Extraocular movements grossly intact. Moist buccal mucosa. Head is atraumatic, normocephalic. ABDOMEN: Soft. Mildly distended. Tenderness with palpation. Colostomy bag located on the left. Ostomy pink. There is blood drainage. No stool. Incision site is clean. Patient has 3 carlos present. Dressing clean dry and intact NEUROLOGIC: Alert and oriented. Cranial nerves II through XII grossly intact. ASSESSMENT: 1. Perforated sigmoid diverticulitis status post sigmoid colectomy with end colostomy, incidental appendectomy, mobilization splenic flexure 2. Hypokalemia resolved with supplemental PLAN: -Continue full liquid diet -Hep-Lock IV -Patient has [place] and Dilaudid as needed for pain -Continue antibiotics -Encourage patient to ambulate and use incentive spirometer -Add [place] -GI prophylaxis Protonix and DVT prophylaxis subcu heparin Physician Dog Handler Or Trainer note has been reviewed by physician. Signing provider agrees with the documented findings, assessment, and plan of care. Objective - Vital Signs Vital signs: Vital Signs Temp 98.4 F 09/08/20 07:48 Pulse 75 09/08/20 07:48 Resp 20 09/08/20 07:48 BP 160/89 09/08/20 07:48 Pulse Ox 92 L 09/08/20 07:48 Intake & Output 09/07/20 09/08/20 09/08/20 18:59 06:59 18:59 Intake Total 480 440 Balance 480 440 Weight 71.8 kg Intake: Intake, IV Titration 200 Amount Piperacillin-Tazobactam 3 200 .375 gm In Sodium Chloride 0.9% 100 ml @ 25 mls/hr IVPB Q8HR [facility] Rx# :[id number] Oral 480 240 Other: # Voids 1 # Bowel Movements 1 1 - Labs CBC & Chem 7: 09/08/20 06:05 09/08/20 06:05 Labs: Abnormal Lab Results - Last 24 Hours (Table) 09/08/20 09/08/20 Range/Units 06:05 06:05 RBC 3.35 L (3.80-5.40) m/uL Hgb 10.8 L (11.4-16.0) gm/dL Hct 31.9 L (34.0-46.0) % BUN 6.0 L (9.0-27.0) mg/dL Creatinine 0.5 L (0.6-1.5) mg/dL Calcium 8.1 L (8.7-10.3) mg/dL
[2020-09-08] MEDS: DOCUSATE 100 MG CAP PO SCH ×2 (10:35→20:46)
[2020-09-08] MEDS: ALPRAZolam 0.25 MG TAB PO PRN ×2 (12:03→20:51)
--- NOTE | 2020-09-08 17:54 | PN ---
PROGRESS NOTE DATE OF SERVICE: 09/08/2020 REASON FOR FOLLOWUP: Perforated diverticulitis, abdominal abscess. INTERVAL HISTORY: The patient is currently afebrile. Patient is breathing comfortably. General abdominal has improved. No chest pain, shortness of breath or cough. No diarrhea. PHYSICAL EXAMINATION: Blood pressure 138/79 with a pulse of 69, temperature 98.6, she is 94% on room air. General description: The patient is a middle-aged female lying in bed in no distress. Respiratory system: Unlabored breathing. Clear to auscultation anteriorly. Heart S1, S2. Regular rate and rhythm. ABDOMEN: Soft, no tenderness. LABS: Hemoglobin is 10.1, white count 10.4, BUN of 6, creatinine 0.50. DIAGNOSTIC IMPRESSION AND PLAN: Patient with perforated diverticulitis status post laparotomy and diverting colostomy. Overall improved, currently responding to Zosyn. Continue finishing therapy with oral Ceftin and Flagyl on discharge and close outpatient followup. MMODL / IJN: [id number] /
--- NOTE | 2020-09-08 18:36 | PN ---
PROGRESS NOTE DATE OF SERVICE: 09/08/2020 This 60-year-old woman was admitted with acute sigmoid diverticulitis and perforation, had end colostomy. The patient also had into interval appendectomy. The patient is on broad spectrum IV antibiotics. No chest pain. No palpitations. No fever. PHYSICAL EXAMINATION: Alert and oriented x3. The pulse is 75 blood pressure 160/89, respiration 20, temperature 98.4, pulse ox 92% on room air skin: HEENT: Conjunctivae normal. Oral mucosa moist. NECK: No jugular venous distention. No lymph node enlargement. CARDIOVASCULAR: S1, S2, muffled. No S3, no S4, RESPIRATORY: Diminished breath sounds at the bases. No rhonchi, no crackles. ABDOMEN: Soft, status post surgery. LEGS: No edema, no swelling. NERVOUS SYSTEM: No focal deficits. LAB STUDIES: WBC 10.2, hemoglobin 10.8, sodium 140. COVID-19 is negative. ASSESSMENT: 1. Acute sigmoid diverticulitis with perforation status post sigmoid colectomy as well as end-colostomy with incidental appendectomy as well as possible sepsis, present on admission. 2. Increased WBC. 3. Hyperkalemia. 4. History of recent anterior cervical disc compression fusion C3-4, C4-5, C5-6 6 with herniated nucleus pulposus and cervical stenosis. 5. History of hypertension. 6. Mild hyponatremia. 7. History of cervical cancer in 20s. 8. History of hysterectomy. 9. History of back surgery. 10.Degenerative joint disease. 11.Anxiety, depression. 12.Continued ongoing nicotine dependence. 13.Increased WBC, improved. 14.Anemia, normocytic anemia of chronic disease. 15.FULL CODE. RECOMMENDATIONS AND DISCUSSION: Continue current management, continue. Continue the antibiotics. Continue symptomatic treatment. Otherwise, diet per surgery. Guarded prognosis. Further recommendations to follow. MMODL / IJN: [id number] /
[2020-09-09 06:51] LABS: Basophils % (A) 1 %; Eosinophils # (A) 0.3 k/uL (0-0.7); Eosinophils % (A) 4 %; HGB 10.8 gm/dL (11.4-16.0); Lymphocytes # (A) 1.4 k/uL (1.0-4.8); Lymphocytes % (A) 15 %; MCH 31.2 pg (25.0-35.0); MCHC 31.8 g/dL (31.0-37.0); MCV 98.3 fL (80.0-100.0); Mean Platelet Volume 7.7; Monocytes # (A) 0.4 k/uL (0-1.0); Monocytes % (A) 5 %; Neutrophils # (A) 6.6 k/uL (1.3-7.7); Neutrophils % (A) 74 %; Platelet Count 490 k/uL (150-450); RBC 3.46 m/uL (3.80-5.40); RDW 13.3 % (11.5-15.5); WBC 8.9 k/uL (3.8-10.6)
[2020-09-09] MEDS: amLODIPine 10 MG TAB PO SCH (08:23)
[2020-09-09] MEDS: metroNIDAZOLE 500 MG TAB PO SCH ×4 (08:23→20:39)
[2020-09-09] MEDS: FAMOTIDINE 20 MG TAB PO SCH ×2 (08:23→20:39)
[2020-09-09] MEDS: DOCUSATE 100 MG CAP PO SCH ×3 (08:23→20:39)
[2020-09-09] MEDS: HYDROcodone/APAP 5-325MG 1 EACH TAB PO PRN ×3 (08:23→20:39)
[2020-09-09] MEDS: NICOTINE 14MG/24HR PATCH TRANSDERM SCH ×2 (08:24→08:26)
[2020-09-09] MEDS: HEPARIN SODIUM,PORCINE 5,000 UNIT/ML 1 ML VIAL SQ SCH ×2 (08:24→20:40)
[2020-09-09] MEDS: PANTOPRAZOLE 40 MG/10 ML VIAL IVP SCH (08:25)
[2020-09-09] MEDS: MUPIROCIN 2% OINT 22 GM TUBE TOPICAL SCH ×3 (08:25→20:46)
[2020-09-09] MEDS: PIPERACILLIN-TAZOBACTAM 3.375 GM in SODIUM CHLORIDE 0.9% 100 ML IVPB SCH ×3 (08:26→23:28)
[2020-09-09 09:58] LABS: African American GFR (CKD) 115.6 (60.0-200.0); Anion Gap 6.5 mmol/L (4.00-12.00); BUN/Creat Ratio 11.67 Ratio (12.00-20.00); Carbon Dioxide 26.5 mmol/L (21.6-31.8); Non-African American GFR(CKD) 99.8 (60.0-200.0); Potassium 4.1 mmol/L (3.5-5.5)
[2020-09-09] MEDS: ALPRAZolam 0.25 MG TAB PO PRN ×2 (11:08→20:44)
--- NOTE | 2020-09-09 11:41 | P.PN ---
Progress Note - Text Progress Note Date: 09/09/20 Patient has had output through her colostomy bag. On exam vitals are stable. Abdomen soft. Incisions clean dry intact. Status post [place] procedure for perforated diverticula is. Patient able to discharge home next 24-48 hours. She'll continue receive supportive care.
--- NOTE | 2020-09-09 16:14 | P.PN ---
Subjective Progress Note Date: 09/09/20 Principal diagnosis: Sigmoid diverticulitis status post perforation , status post colostomy Ms. Tamayo is a 60-year-old female admitted for acute sigmoid diverticulitis and perforation. She had a colostomy done the patient also had happened the rectum and then. Currently the patient is on broad-spectrum IV antibiotics. On 09/09/2020 - patient is lying in bed appears to be in no acute distress. Patient states that she has poor appetite and has been only eating lately. She denies having any nausea or vomiting. Patient was tearful, states that she tried to handle her colostomy by herself today and could not do it. Patient denies having any features suggestive of depression but she was tearful. On reviewing the vitals temperature is 98.4, heart rate 80, respiratory rate 18, blood pressure 135 is 79 and saturating at 92% on room air. On reviewing her labs white count of 8.9, hemoglobin 10.8, platelets 490. Sodium of the patient in observation for 0.1, chloride 106, bicarb 26, BU and 7 and creatinine of 0.6. Active Medications Hydrocodone Bitart/Acetaminophen (Hydrocodone/Apap 5-325mg 1 Each Tab) 1 each PO Q6HR PRN PRN Reason: Pain Last Admin: 09/09/20 14:48 Dose: 1 each Documented by: Alprazolam (Alprazolam 0.25 Mg Tab) 0.25 mg PO TID PRN PRN Reason: Anxiety Last Admin: 09/09/20 11:08 Dose: 0.25 mg Documented by: Amlodipine Besylate (Amlodipine 10 Mg Tab) 10 mg PO QAM COUNT INCLUDES THE [facility] Last Admin: 09/09/20 08:23 Dose: 10 mg Documented by: Benzocaine/Menthol (Benzocaine/Menthol Lozeng 1 Each Lozenge) 1 each MUCOUS MEM Q1HR PRN PRN Reason: Sore Throat Docusate Sodium (Docusate 100 Mg Cap) 100 mg PO BID COUNT INCLUDES THE [facility] Last Admin: 09/09/20 08:30 Dose: 100 mg Documented by: Famotidine (Famotidine 20 Mg Tab) 20 mg PO Q12HR COUNT INCLUDES THE [facility] Last Admin: 09/09/20 08:23 Dose: 20 mg Documented by: Heparin Sodium (Porcine) (Heparin Sodium,Porcine 5,000 Unit/Ml 1 Ml Vial) 5,000 unit SQ Q12HR COUNT INCLUDES THE [facility] Last Admin: 09/09/20 08:24 Dose: 5,000 unit Documented by: Hydromorphone HCl (Hydromorphone 1 Mg/Ml 1 Ml Syringe) 1 mg IVP Q3HR PRN PRN Reason: Moderate to Severe Pain Last Admin: 09/08/20 07:11 Dose: 1 mg Documented by: Piperacillin Sod/Tazobactam (Sod 3.375 gm/ Sodium Chloride) 100 mls @ 25 mls/hr IVPB Q8HR COUNT INCLUDES THE [facility] Last Admin: 09/09/20 15:13 Dose: 25 mls/hr Documented by: Ropivacaine 250 mg/Hydromorphone HCl 5 mg/ Sodium Chloride 250 mls @ 0 mls/hr EPIDURAL .Q0M PRN; Protocol PRN Reason: Pain Control Last Admin: 09/04/20 05:46 Dose: 6 mls/hr Documented by: Metoclopramide HCl (Metoclopramide 5 Mg/Ml 2 Ml Vial) 10 mg IVP Q6HR PRN PRN Reason: Nausea and Vomiting Last Admin: 09/07/20 23:16 Dose: 10 mg Documented by: Metronidazole (Metronidazole 500 Mg Tab) 500 mg PO QID COUNT INCLUDES THE [facility] Last Admin: 09/09/20 12:02 Dose: 500 mg Documented by: Miscellaneous Information (Magnesium Replacement Protocol 1 Each Misc) 1 each MISCELLANE DAILY PRN; Protocol PRN Reason: Per Protocol Miscellaneous Information (Potassium Replacement Protocol 1 Each Misc) 1 each MISCELLANE DAILY PRN; Protocol PRN Reason: Per Protocol Mupirocin (Mupirocin 2% Oint 22 Gm Tube) 1 applic TOPICAL TID COUNT INCLUDES THE [facility] Last Admin: 09/09/20 09:15 Dose: Not Given Documented by: Naloxone HCl (Naloxone 0.4 Mg/Ml 1 Ml Vial) 0.2 mg IV Q2M PRN PRN Reason: Opioid Reversal Nicotine (Nicotine 14mg/24hr Patch) 1 patch TRANSDERM DAILY COUNT INCLUDES THE [facility] Last Admin: 09/09/20 08:26 Dose: Not Given Documented by: Ondansetron HCl (Ondansetron 4 Mg/2 Ml Vial) 4 mg IVP Q6HR PRN PRN Reason: Nausea And Vomiting Last Admin: 09/08/20 21:06 Dose: 4 mg Documented by: Pantoprazole Sodium (Pantoprazole 40 Mg/10 Ml Vial) 40 mg IVP DAILY [facility] Last Admin: 09/09/20 08:25 Dose: 40 mg Documented by: Senna (Sennosides 8.6 Mg Tab) 8.6 mg PO BID PRN PRN Reason: Constipation Last Admin: 09/01/20 08:45 Dose: 8.6 mg Documented by: Temazepam (Temazepam 15 Mg Cap) 15 mg PO HS PRN PRN Reason: Insomnia Last Admin: 09/04/20 21:38 Dose: 15 mg Documented by: Trimethobenzamide HCl (Trimethobenzamide 100 Mg/Ml 2 Ml Vial) 200 mg IM Q6HR PRN PRN Reason: Nausea And Vomiting Objective - Vital Signs Vital signs: Vital Signs Temp 98.4 F 09/09/20 15:07 Pulse 80 09/09/20 15:07 Resp 18 09/09/20 15:07 BP 135/79 09/09/20 15:07 Pulse Ox 92 L 09/09/20 15:07 Intake & Output 09/08/20 09/09/20 09/09/20 18:59 06:59 18:59 Other: Voiding Method Toilet - Exam PHYSICAL EXAMINATION: GENERAL: The patient is alert and oriented X3, in any acute distress. Tearful HEENT: No scleral icterus. No conjunctival pallor. Normocephalic, atraumatic. CARDIOVASCULAR: S1 and S2 present. No murmurs, rubs, or gallops. PULMONARY: Chest is clear to auscultation, no wheezing or crackles. ABDOMEN: Soft. Mildly distended. Tenderness with palpation. Colostomy bag located on the left with some stool. Dressing is clean and dry. MUSCULOSKELETAL: No joint swelling or deformity. EXTREMITIES: No cyanosis, clubbing, or pedal edema. NEUROLOGICAL: No focal neurological deficits. SKIN: No rash - Labs CBC & Chem 7: 09/10/20 05:39 09/10/20 05:39 Labs: Abnormal Lab Results - Last 24 Hours (Table) 09/09/20 09/09/20 Range/Units 06:13 06:13 RBC 3.46 L (3.80-5.40) m/uL Hgb 10.8 L (11.4-16.0) gm/dL Plt Count 490 H (150-450) k/uL BUN 7.0 L (9.0-27.0) mg/dL BUN/Creatinine Ratio 11.67 L (12.00-20.00) Ratio Calcium 8.0 L (8.7-10.3) mg/dL Assessment and Plan Assessment: ASSESSMENT Acute sigmoid diverticulitis with perforation status post sigmoid colectomy as well as and a colostomy with incidental appendectomy Possible sepsis Hyperkalemia History of recent anterior cervical disc decompression fusion C3-C4 and C4-C5, C5-C6 Hypertension History of cervical cancer in 20s History of back surgery History of hysterectomy Anxiety with depression Normocytic anemia PLAN: Continue the patient on antibiotics in the form of Zosyn and Flagyl. General surgery on board and following the patient closely. Overall prognosis is guarded. Further recommendations depending on the progress of the patient.
--- NOTE | 2020-09-09 17:16 | PN ---
PROGRESS NOTE DATE OF SERVICE: 09/09/2020 REASON FOR FOLLOWUP: Perforated diverticulitis and abscess. INTERVAL HISTORY: The patient is currently afebrile. She is complaining of some abdominal distention but no vomiting. No chest pain, shortness of breath or cough. Did have output in her colostomy bag. PHYSICAL EXAMINATION: Blood pressure 135/79 with a pulse of 80, temperature 98.4. She is 92% on room air. General description is a middle-aged female up in the bed in no distress. RESPIRATORY SYSTEM: Unlabored breathing. Clear to auscultation anteriorly. HEART: S1, S2. Regular rate and rhythm. ABDOMEN: Soft. No tenderness. LABS: Hemoglobin is 10.1, white count 8.9, BUN of 7, creatinine 0.6. DIAGNOSTIC IMPRESSION AND PLAN: Patient with perforated diverticulitis, status post diverting colostomy. This patient is currently covered with Zosyn; to continue. Transition to oral antibiotic on discharge. Continue with supportive care. MMODL / IJN: [id number] /
[2020-09-10 06:24] LABS: Basophils % (A) 1 %; Eosinophils # (A) 0.3 k/uL (0-0.7); Eosinophils % (A) 4 %; HCT 32.8 % (34.0-46.0); Lymphocytes # (A) 1.2 k/uL (1.0-4.8); Lymphocytes % (A) 15 %; MCH 32.5 pg (25.0-35.0); MCHC 33.6 g/dL (31.0-37.0); MCV 96.8 fL (80.0-100.0); Mean Platelet Volume 7.4; Monocytes # (A) 0.4 k/uL (0-1.0); Monocytes % (A) 6 %; Neutrophils # (A) 5.6 k/uL (1.3-7.7); Neutrophils % (A) 73 %; Platelet Count 514 k/uL (150-450); RBC 3.39 m/uL (3.80-5.40); RDW 13.1 % (11.5-15.5); WBC 7.6 k/uL (3.8-10.6)
[2020-09-10] MEDS: HYDROcodone/APAP 5-325MG 1 EACH TAB PO PRN ×3 (08:43→20:21)
[2020-09-10] MEDS: ALPRAZolam 0.25 MG TAB PO PRN ×2 (08:43→17:23)
[2020-09-10] MEDS: amLODIPine 10 MG TAB PO SCH (08:44)
[2020-09-10] MEDS: FAMOTIDINE 20 MG TAB PO SCH ×2 (08:44→20:21)
[2020-09-10] MEDS: metroNIDAZOLE 500 MG TAB PO SCH ×4 (08:44→20:21)
[2020-09-10] MEDS: DOCUSATE 100 MG CAP PO SCH ×2 (08:44→20:22)
[2020-09-10] MEDS: PIPERACILLIN-TAZOBACTAM 3.375 GM in SODIUM CHLORIDE 0.9% 100 ML IVPB SCH ×2 (08:45→15:16)
[2020-09-10] MEDS: MUPIROCIN 2% OINT 22 GM TUBE TOPICAL SCH ×3 (08:45→20:23)
[2020-09-10] MEDS: NICOTINE 14MG/24HR PATCH TRANSDERM SCH (08:45)
[2020-09-10] MEDS: PANTOPRAZOLE 40 MG/10 ML VIAL IVP SCH (08:45)
[2020-09-10] MEDS: HEPARIN SODIUM,PORCINE 5,000 UNIT/ML 1 ML VIAL SQ SCH ×2 (08:45→20:21)
[2020-09-10 10:42] LABS: African American GFR (CKD) 115.6 (60.0-200.0); Anion Gap 8.6 mmol/L (4.00-12.00); BUN/Creat Ratio 11.67 Ratio (12.00-20.00); Carbon Dioxide 24.4 mmol/L (21.6-31.8); Non-African American GFR(CKD) 99.8 (60.0-200.0); Potassium 4.3 mmol/L (3.5-5.5)
--- NOTE | 2020-09-10 10:59 | P.PN ---
Progress Note - Text Progress Note Date: 09/10/20 Patient has complaints of abdominal pain. She's had some bowel 1 colostomy. On exam vital signs are stable. Abdomen soft. Colostomy is small amount of stool throughout. Incision is clean. Status post heart procedure for perforated diverticula is. Patient we will likely discharge home in a.m.
--- NOTE | 2020-09-10 18:32 | P.PN ---
Subjective Progress Note Date: 09/10/20 Principal diagnosis: Sigmoid diverticulitis status post perforation , status post colostomy Ms. Tamayo is a 60-year-old female admitted for acute sigmoid diverticulitis and perforation. She had a colostomy done the patient also had happened the rectum and then. Currently the patient is on broad-spectrum IV antibiotics. On 09/09/2020 - patient is lying in bed appears to be in no acute distress. Patient states that she has poor appetite and has been only eating lately. She denies having any nausea or vomiting. Patient was tearful, states that she tried to handle her colostomy by herself today and could not do it. Patient denies having any features suggestive of depression but she was tearful. On reviewing the vitals temperature is 98.4, heart rate 80, respiratory rate 18, blood pressure 135 is 79 and saturating at 92% on room air. On reviewing her labs white count of 8.9, hemoglobin 10.8, platelets 490. Sodium of the patient in observation for 0.1, chloride 106, bicarb 26, BU and 7 and creatinine of 0.6. On 09/10/2020 - patient is lying in bed appears to be no acute distress. Patient states that she has been trying to learn to maintain her colostomy, she still did not get the hang of it. Otherwise patient denies having any chest pain or palpitations. No cough or difficulty in breathing. She complains of abdominal distention. No vomiting but slightly nauseous. On reviewing the vitals temperature 98.1, heart rate 67, respiratory rate 18, blood pressure 132/71 saturating at 93% on room air. On reviewing the labs white count of 7.6, hemoglobin 11, platelets 414. Sodium 140, potassium 4.3, chloride 107, bicarb 24. B UN is 7 and creatinine of 0.6. She is being continued on Zosyn. Active Medications Hydrocodone Bitart/Acetaminophen (Hydrocodone/Apap 5-325mg 1 Each Tab) 1 each PO Q6HR PRN PRN Reason: Pain Last Admin: 09/10/20 15:16 Dose: 1 each Documented by: Alprazolam (Alprazolam 0.25 Mg Tab) 0.25 mg PO TID PRN PRN Reason: Anxiety Last Admin: 09/10/20 17:23 Dose: 0.25 mg Documented by: Amlodipine Besylate (Amlodipine 10 Mg Tab) 10 mg PO QAM [facility] Last Admin: 09/10/20 08:44 Dose: 10 mg Documented by: Benzocaine/Menthol (Benzocaine/Menthol Lozeng 1 Each Lozenge) 1 each MUCOUS MEM Q1HR PRN PRN Reason: Sore Throat Docusate Sodium (Docusate 100 Mg Cap) 100 mg PO BID [facility] Last Admin: 09/10/20 08:44 Dose: 100 mg Documented by: Famotidine (Famotidine 20 Mg Tab) 20 mg PO Q12HR [facility] Last Admin: 09/10/20 08:44 Dose: 20 mg Documented by: Heparin Sodium (Porcine) (Heparin Sodium,Porcine 5,000 Unit/Ml 1 Ml Vial) 5,000 unit SQ Q12HR [facility] Last Admin: 09/10/20 08:45 Dose: 5,000 unit Documented by: Hydromorphone HCl (Hydromorphone 1 Mg/Ml 1 Ml Syringe) 1 mg IVP Q3HR PRN PRN Reason: Moderate to Severe Pain Last Admin: 09/08/20 07:11 Dose: 1 mg Documented by: Piperacillin Sod/Tazobactam (Sod 3.375 gm/ Sodium Chloride) 100 mls @ 25 mls/hr IVPB Q8HR [facility] Last Admin: 09/10/20 15:16 Dose: 25 mls/hr Documented by: Ropivacaine 250 mg/Hydromorphone HCl 5 mg/ Sodium Chloride 250 mls @ 0 mls/hr EPIDURAL .Q0M PRN; Protocol PRN Reason: Pain Control Last Admin: 09/04/20 05:46 Dose: 6 mls/hr Documented by: Metoclopramide HCl (Metoclopramide 5 Mg/Ml 2 Ml Vial) 10 mg IVP Q6HR PRN PRN Reason: Nausea and Vomiting Last Admin: 09/07/20 23:16 Dose: 10 mg Documented by: Metronidazole (Metronidazole 500 Mg Tab) 500 mg PO QID [facility] Last Admin: 09/10/20 17:23 Dose: 500 mg Documented by: Miscellaneous Information (Magnesium Replacement Protocol 1 Each Misc) 1 each MISCELLANE DAILY PRN; Protocol PRN Reason: Per Protocol Miscellaneous Information (Potassium Replacement Protocol 1 Each Misc) 1 each MISCELLANE DAILY PRN; Protocol PRN Reason: Per Protocol Mupirocin (Mupirocin 2% Oint 22 Gm Tube) 1 applic TOPICAL TID [facility] Last Admin: 09/10/20 15:16 Dose: Not Given Documented by: Naloxone HCl (Naloxone 0.4 Mg/Ml 1 Ml Vial) 0.2 mg IV Q2M PRN PRN Reason: Opioid Reversal Nicotine (Nicotine 14mg/24hr Patch) 1 patch TRANSDERM DAILY [facility] Last Admin: 09/10/20 08:45 Dose: Not Given Documented by: Ondansetron HCl (Ondansetron 4 Mg/2 Ml Vial) 4 mg IVP Q6HR PRN PRN Reason: Nausea And Vomiting Last Admin: 09/08/20 21:06 Dose: 4 mg Documented by: Pantoprazole Sodium (Pantoprazole 40 Mg/10 Ml Vial) 40 mg IVP DAILY [facility] Last Admin: 09/10/20 08:45 Dose: 40 mg Documented by: Senna (Sennosides 8.6 Mg Tab) 8.6 mg PO BID PRN PRN Reason: Constipation Last Admin: 09/01/20 08:45 Dose: 8.6 mg Documented by: Temazepam (Temazepam 15 Mg Cap) 15 mg PO HS PRN PRN Reason: Insomnia Last Admin: 09/04/20 21:38 Dose: 15 mg Documented by: Trimethobenzamide HCl (Trimethobenzamide 100 Mg/Ml 2 Ml Vial) 200 mg IM Q6HR PRN PRN Reason: Nausea And Vomiting Objective - Vital Signs Vital signs: Vital Signs Temp 98.1 F 09/10/20 16:29 Pulse 67 09/10/20 16:29 Resp 18 09/10/20 16:29 BP 132/71 09/10/20 16:29 Pulse Ox 94 L 09/10/20 16:29 Intake & Output 09/09/20 09/10/20 09/10/20 18:59 06:59 18:59 Other: Voiding Method Toilet Toilet - Exam PHYSICAL EXAMINATION: GENERAL: The patient is alert and oriented X3, in any acute distress. HEENT: No scleral icterus. No conjunctival pallor. Normocephalic, atraumatic. CARDIOVASCULAR: S1 and S2 present. No murmurs, rubs, or gallops. PULMONARY: Chest is clear to auscultation, no wheezing or crackles. ABDOMEN: Soft. Mildly distended. Tenderness with palpation. Colostomy bag located on the left with some stool. Dressing is clean and dry. MUSCULOSKELETAL: No joint swelling or deformity. EXTREMITIES: No cyanosis, clubbing, or pedal edema. NEUROLOGICAL: No focal neurological deficits. SKIN: No rash - Labs CBC & Chem 7: 09/10/20 05:39 09/10/20 05:39 Labs: Abnormal Lab Results - Last 24 Hours (Table) 09/10/20 09/10/20 Range/Units 05:39 05:39 RBC 3.39 L (3.80-5.40) m/uL Hgb 11.0 L (11.4-16.0) gm/dL Hct 32.8 L (34.0-46.0) % Plt Count 514 H (150-450) k/uL BUN 7.0 L (9.0-27.0) mg/dL BUN/Creatinine Ratio 11.67 L (12.00-20.00) Ratio Calcium 8.0 L (8.7-10.3) mg/dL Assessment and Plan Assessment: ASSESSMENT Acute sigmoid diverticulitis with perforation status post sigmoid colectomy as well as and a colostomy with incidental appendectomy Possible sepsis Hyperkalemia resolved- History of recent anterior cervical disc decompression fusion C3-C4 and C4-C5, C5-C6 Hypertension History of cervical cancer in 20s History of back surgery History of hysterectomy Anxiety with depression Normocytic anemia PLAN: Continue the patient on antibiotics in the form of Zosyn and Flagyl. General surgery on board and following the patient closely. Continue with GI DVT prophylaxis Overall prognosis is guarded. Further recommendations depending on the progress of the patient.
--- NOTE | 2020-09-10 20:44 | PN ---
PROGRESS NOTE DATE OF SERVICE: 09/10/2020 REASON FOR FOLLOWUP: Secondary peritonitis from perforated diverticulitis. INTERVAL HISTORY: The patient is currently afebrile. The patient is breathing comfortably. Abdominal discomfort is currently controlled. No chest pain, shortness of breath or cough. Did have output in her colostomy bag. PHYSICAL EXAMINATION: Blood pressure 121/66, pulse of 68, temperature 98.4. She is 96% on room air. General description is a middle-aged female lying in bed in no distress. RESPIRATORY SYSTEM: Unlabored breathing. ABDOMEN: Soft. Incision is intact. No significant swelling, redness or any drainage was noticed. LABS: Hemoglobin 11, white count 7.6, BUN of 7, creatinine 0.6. DIAGNOSTIC IMPRESSION AND PLAN: Patient with secondary peritonitis from perforated sigmoid diverticulitis, status post diverting colostomy. The patient is currently covered with Zosyn had about 10-11 days of IV antibiotic therapy. That can be easily transitioned to oral Ceftin and Flagyl for about a week and close outpatient followup. MMODL / IJN: [id number] /
[2020-09-11] MEDS: PIPERACILLIN-TAZOBACTAM 3.375 GM in SODIUM CHLORIDE 0.9% 100 ML IVPB SCH ×3 (00:37→14:50)
[2020-09-11] MEDS: HYDROcodone/APAP 5-325MG 1 EACH TAB PO PRN ×2 (03:14→14:52)
[2020-09-11] MEDS: amLODIPine 10 MG TAB PO SCH (07:06)
[2020-09-11] MEDS: metroNIDAZOLE 500 MG TAB PO SCH ×2 (07:06→12:29)
[2020-09-11] MEDS: DOCUSATE 100 MG CAP PO SCH (07:07)
[2020-09-11] MEDS: NICOTINE 14MG/24HR PATCH TRANSDERM SCH (07:07)
[2020-09-11] MEDS: PANTOPRAZOLE 40 MG/10 ML VIAL IVP SCH (07:07)
[2020-09-11] MEDS: HEPARIN SODIUM,PORCINE 5,000 UNIT/ML 1 ML VIAL SQ SCH (07:07)
[2020-09-11] MEDS: FAMOTIDINE 20 MG TAB PO SCH (07:07)
[2020-09-11] MEDS: MUPIROCIN 2% OINT 22 GM TUBE TOPICAL SCH ×2 (07:07→14:51)
[2020-09-11] MEDS: ALPRAZolam 0.25 MG TAB PO PRN (12:29)
--- NOTE | 2020-09-11 13:59 | P.PN ---
Subjective Progress Note Date: 09/11/20 Principal diagnosis: Diverticulitis Patient doing well today. Tolerating regular diet this afternoon. Better ostomy function. Denies nausea or vomiting. Pain is well-controlled. She would like to go home today. Objective - Vital Signs Vital signs: Vital Signs Temp 97.8 F 09/11/20 07:03 Pulse 65 09/11/20 07:03 Resp 17 09/11/20 07:03 BP 131/70 09/11/20 07:03 Pulse Ox 94 L 09/11/20 07:03 Intake & Output 09/10/20 09/11/20 09/11/20 18:59 06:59 18:59 Weight 71.8 kg Other: Voiding Method Toilet Toilet Toilet - Exam Abdomen: Soft, nondistended, wick sites with minimal drainage, remainder of incision without abnormalities, ostomy functioning - Labs CBC & Chem 7: 09/10/20 05:39 09/10/20 05:39 Assessment and Plan (1) Diverticulitis Narrative/Plan: Patient doing well at this time. May discharge from my standpoint. Follow-up one week in office. Current Visit: Yes Status: Acute Code(s): K57.92 - DVTRCLI OF INTEST, PART UNSP, W/O PERF OR ABSCESS W/O BLEED SNOMED Code(s): 762138499
[2020-09-11 15:14] VITALS: BP 128/78; PULSE 67; RESP 16; TEMP 98.6
--- NOTE | 2020-09-11 17:35 | PN ---
PROGRESS NOTE DATE OF SERVICE: 09/11/2020 REASON FOR FOLLOWUP: Abdominal abscess secondary to perforated diverticulitis. INTERVAL HISTORY: The patient is currently afebrile. She was feeling this afternoon. The patient is breathing comfortably. Denies having any chest pain or cough. No abdominal pain. She was well before the lunch and did have output in the colostomy bag. PHYSICAL EXAMINATION: Blood pressure 128/78 with a pulse of 67, temperature 98.6. She is 96% on room air. General description is a middle-aged female up in the bed in no distress. RESPIRATORY SYSTEM: Unlabored breathing. Clear to auscultation anteriorly. HEART: S1, S2. Regular rate and rhythm. ABDOMEN: Soft. No tenderness. LABS: Hemoglobin 11, white count 7.6, creatinine 0.6. DIAGNOSTIC IMPRESSION AND PLAN: Patient with secondary peritonitis from perforated diverticulitis, status post diverting colostomy. She has received about 2 weeks of IV antibiotic therapy. She will be transitioned to oral Ceftin and Flagyl for a week with close outpatient followup. MMODL / IJN: [id number] /
--- NOTE | 2020-09-11 22:28 | P.DS ---
Providers Date of admission: 08/30/20 19:07 Expected date of discharge: 09/11/20 Attending physician: Alicia Hernandez Consults: 08/31/20 10:45 Consult Physician Routine Consulting Provider: Delbert Espitia Consult Reason/Comments: recent surgery Do you want consulting provider notified?: Yes 09/02/20 12:19 Consult Physician Routine Consulting Provider: Michael Bill Consult Reason/Comments: possible abscess on CT scan Do you want consulting provider notified?: Yes Primary care physician: Frank Park [facility] Course: Ms. Tamayo is a 60-year-old female with a past medical history of multiple medical problems including hypertension, history of cervical cancer, back surgery, hysterectomy, anxiety, depression being followed by Dr. Frank Park in the outpatient setting, who underwent anterior cervical decompression and fusion of C3-C4, C4-C5, C 5/6 for herniated nucleus pulposus and radiculopathy admitted for constipation. Patient had a CAT scan of the abdomen and pelvis showing sigmoid diverticulitis and so admitted for further evaluation and treatment. Hospital course -patient was started on broad-spectrum IV antibiotics, the patient was managed conservatively but the patient's pain progressively worsening, surgical service is on board and following the patient. Eventually the patient had sigmoid colectomy with end colostomy and incidental appendectomy and mobilization of splenic flexure done on 09/02/[address] Lara. Patient was continued on broad-spectrum antibiotics, followed by ID Dr. Bill. Postop recovery, took few days for the patient to be started on clear liquids and advance to full diet. Today, the patient tolerated a full diet. She also was educated on maintaining her colostomy. She has a colostomy supplies at the bedside. Patient states that she is ready to go home. She is cleared by multiple consultants to be discharged home. Discussed in detail with the patient about the importance of completing her antibiotic course and follow-up with PCP and general surgery. 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 HEENT: No scleral icterus. No conjunctival pallor. Normocephalic, atraumatic. CARDIOVASCULAR: S1 and S2 present. No murmurs, rubs, or gallops. PULMONARY: Chest is clear to auscultation, no wheezing or crackles. ABDOMEN: Soft. Mildly distended. Tenderness with palpation. Colostomy bag located on the left with some stool. Dressing is clean and dry. MUSCULOSKELETAL: No joint swelling or deformity. EXTREMITIES: No cyanosis, clubbing, or pedal edema. NEUROLOGICAL: No focal neurological deficits. DISCHARGE DIAGNOSIS Acute sigmoid diverticulitis with perforation status post sigmoid colectomy as well as and a colostomy with incidental appendectomy Possible sepsis Hyperkalemia resolved- History of recent anterior cervical disc decompression fusion C3-C4 and C4-C5, C5-C6 Hypertension History of cervical cancer in 20s History of back surgery History of hysterectomy Anxiety with depression Normocytic anemia FOLLOW - UP : Patient is advised to follow-up with her PCP in 2 to 3 days. She was advised to follow-up with surgery in 2 weeks and also orthopedics 3 to 4 weeks. More than 35 minutes spent with the discharge of the patient. Plan - Discharge Summary Discharge Rx Participant: Yes New Discharge Prescriptions: New Hydrocodone/Acetaminophen [[place] 5-325] 1 tab PO Q6HR PRN 3 Days #12 tab PRN Reason: Pain Cefuroxime Axetil [Ceftin] 500 mg PO BID 7 Days #14 tab metroNIDAZOLE [Flagyl] 500 mg PO TID 7 Days #21 tab Pantoprazole [Protonix] 40 mg PO AC-BRKFST 30 Days #30 tablet.dr Continue amLODIPine [Norvasc] 10 mg PO QAM 30 Days #30 tab Sennosides-Docusate Sodium [Senokot-S] 1 each PO DAILY PRN #30 tab PRN Reason: Constipation Discontinued Pantoprazole Sodium [Protonix] 40 mg PO DAILY Discharge Medication List Sennosides-Docusate Sodium [Senokot-S] 1 each PO DAILY PRN #30 tab 08/16/20 [Rx] amLODIPine [Norvasc] 10 mg PO QAM 30 Days #30 tab 08/16/20 [Rx] Hydrocodone/Acetaminophen [[place] 5-325] 1 tab PO Q6HR PRN 3 Days #12 tab 09/08/20 [Rx] Cefuroxime Axetil [Ceftin] 500 mg PO BID 7 Days #14 tab 09/11/20 [Rx] Pantoprazole [Protonix] 40 mg PO AC-BRKFST 30 Days #30 tablet. 09/11/20 [Rx] metroNIDAZOLE [Flagyl] 500 mg PO TID 7 Days #21 tab 09/11/20 [Rx] Follow up Appointment(s)/Referral(s): Renzo Lara MD [Medical Doctor] - 09/21/20 8:30 am Rich Grimaldo PAC [PHYSICIAN [place]] - 10/09/20 9:00 am (Patient may follow-up with Rich Grimaldo PA-C or Dr. Jon Espitia at [facility] in 4 weeks following discharge. ) [facility], [NON-STAFF] - 1-2 Days Frank Park DO [Primary Care Provider] - 09/13/20 10:40 am Patient Instructions/Handouts: How to Stop Smoking (GEN), Diverticulitis (GEN), Colostomy Care (GEN) Activity/Diet/Wound Care/Special Instructions: 1. Patient may shower without a dressing intact at the cervical spine surgical site 2. Continue to avoid heavy lifting and overhead activities 3. Avoid excessive cervical rotation, side bending, flexion, and extension 4. No lifting greater than 10 pounds Colostomy Care Instructions for Home: Last pouching system changed: 09.06.2020 Pt will be sent home the following ostomy care Products: Convatec one piece cut to fit with filter pouches #[id number] (three) Convatec flange moldable #[id number] (three) Convatec pouches with filter #[id number] (three) Osotmy powder No sting prep pads (10) Malachi seal (two) Patient is to change the entire pouching system every 3 to 5 days Patient is to empty the pouching system while sitting on the toilet or facing the toilet when the pouch is 1/2 to 1/3 full. MS Tamayo will be receiving free sample Convatec supplies after discharge from the hospital to her home Home care will assist to arrange additional pouching supplies and accessories for your ostomy care once home No driving while taking [place] No lifting over 10 pounds You may shower. No soaking or tub baths for 2 weeks Very light activity until you are reevaluated at your follow up appointment with your surgeon Discharge Disposition: HOME SELF-CARE
[2020-09-12] MEDS ORDERED: PANTOPRAZOLE 40 MG TABLET PO SCH (07:30)
--- NOTE | 2020-09-13 00:21 | CDI ---
Documentation Clarification Form Date: 09/13/2020 From: Ok Schmitz Phone: If you have a question about this query, please contact Yoli rEvin Surgical Garment Inspector at [phone] between 8am and 5pm. Admit Date: 08/30/2020 07:07:00 PM Patient Name: Teresa Tamayo Visit Number: [id number] Discharge Date: 09/11/2020 06:05:00 PM ATTENTION: The Clinical Documentation Specialists (CDI) and [facility] Coding Staff appreciate your assistance in clarifying documentation. Please respond to the clarification below the line at the bottom and electronically sign. The CDI & [facility] Coding staff will review the response and follow-up if needed. Please note: Queries are made part of the Legal Health Record. If you have any questions, please contact the author of this message via ITS. Dr. Rona Ramirez MD., The final diagnosis of the pathology report states: SIGMOID COLON, SEGMENTAL RESECTION:Diverticulosiswith acutediverticulitis.There is focal necrosisand acute serositis consistent withruptureddiverticulum.Appendix: acute serositis. Your Documentation states: The patient'sappendixwas also incorporated into that inflammatory. Patient history/risk factors: History ofhypertension,history of cervical cancer, back surgery, hysterectomy, anxiety,depression. Treatment: Sigmoid colectomywith endcolostomy,incidental appendectomy, mobilization splenic flexure. As attending surgeon, coding is required to confirm that you acknowledge the pathology report diagnosis- Appendix: acute serositis.for accuracy of reporting patient's final diagnosis. we are not allowed to code the diagnsosis from the path report without confirming them with the attending surgeon(when post op dx by surgeon does not include the pathological diagnosis). Do you acknowlege the above Pathological diagnosis for this patient? YES- Appendicitis with Serositis NO other please specify unable to determine. unable to determine. MTDD
== END 2020-09-11 18:05 | disposition home or self-care (01) | DRG 854 ==
LOC: EC 15:12 → 6PED 19:07 → 4SSUR 09-01 16:03
PROVIDERS: ADMIT Hospitalist; ATTEND Hospitalist
PROC: 0DTN0ZZ Resection of Sigmoid Colon, Open Approach (ICD-10-PCS; principal; 2020-09-02 15:00)
PROC: 0DTJ0ZZ Resection of Appendix, Open Approach (ICD-10-PCS; principal; 2020-09-02 15:00)
PROC: 0D1N0Z4 Bypass Sigmoid Colon to Cutaneous, Open Approach (ICD-10-PCS; principal; 2020-09-02 15:00)
DX: A41.9 Sepsis, unspecified organism (principal); K57.20 Diverticulitis of large intestine with perforation and abscess without bleeding; E87.1 Hypo-osmolality and hyponatremia; M19.90 Unspecified osteoarthritis, unspecified site; I10 Essential (primary) hypertension; F41.8 Other specified anxiety disorders; F17.200 Nicotine dependence, unspecified, uncomplicated; E87.6 Hypokalemia; D63.8 Anemia in other chronic diseases classified elsewhere; Z20.822 Contact with and (suspected) exposure to COVID-19; E87.5 Hyperkalemia; G47.00 Insomnia, unspecified; K59.00 Constipation, unspecified; K63.5 Polyp of colon; Z98.1 Arthrodesis status; Z90.710 Acquired absence of both cervix and uterus; Z85.41 Personal history of malignant neoplasm of cervix uteri; Z79.899 Other long term (current) drug therapy; Z88.1 Allergy status to other antibiotic agents; Z88.2 Allergy status to sulfonamides; Z88.8 Allergy status to other drugs, medicaments and biological substances; Z88.0 Allergy status to penicillin; Z98.890 Other specified postprocedural states
CPT/HCPCS: 36415; 72040; 74018; 74177; 80048; 80053; 81001; 82150; 83690; 83735; 85025; 87040; 87635; 88302; 88307; 96365; 96375; 96376; 99285

== ENCOUNTER 2020-10-26 10:45 | Emergency (ER) | payer BC ==
[2020-10-26 10:53] VITALS: RESP 18
[2020-10-26 11:19] LABS: Appearance,Urine Clear (Clear); Bilirubin,Urine Negative (Negative); Blood,Urine Negative (Negative); Color,Urine Yellow; Glucose,Urine (UA) Negative (Negative); Ketones,Urine Negative (Negative); Leukocyte Esterase,Urine Negative (Negative); Nitrite,Urine Negative (Negative); PH, Urine 5.5 (5.0-8.0); Protein,Urine Trace (Negative); Specific Gravity,Urine 1.031 (1.001-1.035); Urobilinogen,Urine <2.0 mg/dL (<2.0)
[2020-10-26] MEDS ORDERED: HYDROmorphone 1 MG/ML 1 ML SYRINGE IM STA (11:31)
--- NOTE | 2020-10-26 11:35 | ED ---
General Adult HPI - General Chief complaint: Abdominal Pain Stated complaint: Abdominal pain Time Seen by Provider: 10/26/20 10:53 Source: patient Mode of arrival: ambulatory Limitations: no limitations - History of Present Illness Initial comments: Dictation was produced using [employer] dictation software. please excuse any grammatical, word or spelling errors. This patient was cared for during a federal and state declared state of emergency secondary to Covid 19 Chief Complaint: 60-year-old female presents with urinary symptoms History of Present Illness: 60-year-old female approximately one month ago she had bowel resection with colostomy placement for ruptured bowel. Patient states that there is a 16 she's been having frequent urinary issues. Patient states she will wake up in the middle night to go urinate. She complains more frequency. Patient is not sure if she is has an infection. She is trying to get an appointment with urology. The ROS documented in this emergency department record has been reviewed and confirmed by me. Those systems with pertinent positive or negative responses have been documented in the HPI. All other systems are other negative and/or noncontributory. PHYSICAL EXAM: General Impression: Alert and oriented x3, not in acute distress HEENT: Normocephalic atraumatic, extra-ocular movements intact, pupils equal and reactive to light bilaterally, mucous membranes moist. Cardiovascular: Heart regular rate and rhythm Chest: Able to complete full sentences, no retractions, no tachypnea Abdomen: abdomen soft, non-tender, non-distended, no organomegaly, surgical sickling dry and intact Musculoskeletal: Pulses present and equal in all extremities, no peripheral edema Motor: no focal deficits noted Neurological: CN II-XII grossly intact, no focal motor or sensory deficits noted Skin: Intact with no visualized rashes Psych: Normal affect and mood ED course: 60-year-old female presents with urinary symptoms. Vital signs upon arrival are within acceptable limits. Urinalysis is negative. Postvoid residual is less than 20 mL. Patient has history of chronic abdominal pain. Patient given IM Dilaudid. She is given referral to outpatient pain clinic. - Related Data Previous Rx's Medication Instructions Recorded Sennosides-Docusate Sodium 1 each PO DAILY PRN #30 tab 08/16/20 [Senokot-S] amLODIPine [Norvasc] 10 mg PO QAM 30 Days #30 tab 12/16/20 Hydrocodone/Acetaminophen [[place] 1 tab PO Q6HR PRN 3 Days #12 tab 09/08/20 5-325] Cefuroxime Axetil [Ceftin] 500 mg PO BID 7 Days #14 tab 09/11/20 Pantoprazole [Protonix] 40 mg PO AC-BRKFST 30 Days #30 09/11/20 tablet. metroNIDAZOLE [Flagyl] 500 mg PO TID 7 Days #21 tab 09/11/20 Allergies Allergy/AdvReac Type Severity Reaction Status Date / Time losartan Allergy Rash/Hives Verified 10/26/20 10:50 amoxicillin trihydrate AdvReac vaginal Verified 10/26/20 10:50 [From Augmentin] infection cephalexin monohydrate AdvReac vaginal Verified 10/26/20 10:50 [From Keflex] infection lisinopril AdvReac Rash/Hives Verified 10/26/20 10:50 Penicillins AdvReac vaginal Verified 10/26/20 10:50 infection potassium clavulanate AdvReac vaginal Verified 10/26/20 10:50 [From Augmentin] infection sulfamethoxazole AdvReac vaginal Verified 10/26/20 10:50 [From Bactrim] infection trimethoprim [From Bactrim] AdvReac vaginal Verified 10/26/20 10:50 infection Review of Systems ROS Statement: Those systems with pertinent positive or pertinent negative responses have been documented in the HPI. ROS Other: All systems not noted in ROS Statement are negative. Past Medical History Past Medical History: Cancer, Hypertension Additional Past Medical History / Comment(s): Hx cervical cancer in her 20's, History of Any Multi-Drug Resistant Organisms: None Reported Past Surgical History: Back Surgery, Bowel Resection, Hysterectomy Additional Past Surgical History / Comment(s): Conization of cervix, deviated septum repair. 08/14/2020 Cervical fusion Past Anesthesia/Blood Transfusion Reactions: No Reported Reaction Past Psychological History: Anxiety, Depression Smoking Status: Former smoker Past Alcohol Use History: None Reported Past Drug Use History: None Reported - Past Family History Mother Family Medical History: No Reported History General Exam Limitations: no limitations Course Vital Signs 10/26/20 10:50 Temperature 98.6 F Pulse Rate 84 Respiratory 18 Rate Blood Pressure 115/73 O2 Sat by Pulse 99 Oximetry Medical Decision Making - Lab Data Lab Results 02/25/21 Range/Units 11:05 Urine Color Yellow Urine Appearance Clear (Clear) Urine pH 5.5 (5.0-8.0) Ur Specific [place] 1.031 (1.001-1.035) Urine Protein Trace H (Negative) Urine Glucose (UA) Negative (Negative) Urine Ketones Negative (Negative) Urine Blood Negative (Negative) Urine Nitrite Negative (Negative) Urine Bilirubin Negative (Negative) Urine Urobilinogen <2.0 (<2.0) mg/dL Ur Leukocyte Esterase Negative (Negative) Disposition Clinical Impression: Urinary frequency Disposition: HOME SELF-CARE Condition: Good Is patient prescribed a controlled substance at d/c from ED?: No Referrals: Jack Casillas MD [STAFF PHYSICIAN] - 1-2 days Sharmin Griffith MD [STAFF PHYSICIAN] - 1-2 days Time of Disposition: 11:35
[2020-10-26 12:23] VITALS: BP 110/72; PULSE 82; TEMP 98.3
== END 2020-10-26 12:23 | disposition home or self-care (01) ==
LOC: EC 10:45
DX: R35.0 Frequency of micturition (principal); Z88.0 Allergy status to penicillin; Z88.8 Allergy status to other drugs, medicaments and biological substances; Z88.1 Allergy status to other antibiotic agents; Z88.2 Allergy status to sulfonamides; Z87.891 Personal history of nicotine dependence; Z85.41 Personal history of malignant neoplasm of cervix uteri; Z90.49 Acquired absence of other specified parts of digestive tract; Z90.710 Acquired absence of both cervix and uterus; Z93.3 Colostomy status
CPT/HCPCS: 81003; 99284; 96372; J1170

== ENCOUNTER → 2020-12-07 | Outpatient (CLI) | payer BC, OTHER ==
--- NOTE | 2020-12-07 15:04 | CT ---
EXAMINATION TYPE: CT abdomen pelvis w con DATE OF EXAM: 12/07/2020 COMPARISON: 09/02/2020 HISTORY: Diverticulitis. Generalized abdominal pain. CT DLP: 590.3 mGycm Automated exposure control for dose reduction was used. CONTRAST: CT scan of the abdomen pelvis is performed with IV Contrast, patient injected with 100 mL of Isovue M 300. FINDINGS- LUNG BASES-bilateral subsegmental areas of consolidation. There is interval resolution of bilateral p leural effusion. Hiatal hernia noted.. Mild interlobular septal thickening can be associated with mil d chronic interstitial lung disease. LIVER/GB-stable 1.6 cm indeterminate hepatic lesion near the caudate lobe. Does not meet the criteria of a simple cyst. Consider follow-up MRI.. PANCREAS- No gross abnormality is seen. SPLEEN- No gross abnormality is seen. ADRENALS- No gross abnormality is seen. KIDNEYS/BLADDER- no hydronephrosis nephrolithiasis or renal mass. BOWEL-bowel gas pattern nonspecific. There is now an ostomy in the left abdomen. Thickening of the [place]ack bcutaneous tissues anteriorly likely related to postsurgical changes.. LYMPH NODES- No greater than 1cm abdominal or pelvic lymph nodes areappreciated. OSSEOUS STRUCTURES- No significant abnormality is seen. OTHER- hypertrophic and degenerative changes of the spine. Compression fracture L3 is stable with re tropulsion unchanged from prior exam at the L2-L3 level. Atherosclerotic change aorta including its b ranch vessels. A cutaneous calcification in the posterior gluteal region likely in the basis of a inj ection granuloma IMPRESSION- 1. Postsurgical changes consistent with ostomy. 2. Stable indeterminate 1.6 cm hepatic lesion. 3. Small hiatal hernia 4. Interval resolution of small bilateral pleural effusion
== END | disposition home or self-care (01) ==
LOC: RADCTMAIN 12:22
PROVIDERS: ATTEND Surgery
DX: K44.9 Diaphragmatic hernia without obstruction or gangrene (principal)
CPT/HCPCS: 74177; Q9967 ×2

== ENCOUNTER → 2021-04-26 | Outpatient (CLI) | payer OTHER ==
[2021-04-26 13:04] LABS: HCT 42.2 % (34.0-46.0); HGB 14.3 gm/dL (11.4-16.0); MCH 34.1 pg (25.0-35.0); MCHC 33.8 g/dL (31.0-37.0); Macrocytosis Slight; Mean Platelet Volume 8.4; Platelet Count 280 k/uL (150-450); RBC 4.18 m/uL (3.80-5.40); RDW 13.9 % (11.5-15.5); WBC 7.3 k/uL (3.8-10.6)
[2021-04-26 13:20] LABS: Potassium 4.6 mmol/L (3.5-5.1)
== END | disposition home or self-care (01) ==
LOC: LABPAT 12:24
PROVIDERS: ATTEND Surgery
DX: Z01.812 Encounter for preprocedural laboratory examination (principal); K57.20 Diverticulitis of large intestine with perforation and abscess without bleeding
CPT/HCPCS: 36415; 80051; 85027

== ENCOUNTER → 2021-05-03 | Outpatient (CLI) | payer OTHER | END | disposition home or self-care (01) | LOC: LABPAT 14:03 | PROVIDERS: ATTEND Surgery | DX: Z01.818 Encounter for other preprocedural examination (principal); I25.2 Old myocardial infarction; K57.20 Diverticulitis of large intestine with perforation and abscess without bleeding; R00.1 Bradycardia, unspecified; R94.31 Abnormal electrocardiogram [ECG] [EKG] | CPT/HCPCS: 93005 ==

== ENCOUNTER 2021-05-10 11:48 | Day surgery (SDC) | payer BC, OTHER ==
[2021-05-03 13:23] VITALS: BMI 23.5
[~2021-05-10 11:48] MED LIST changes: -LIDOCAINE 1% (10MG/ML) FOR IV START INTRADERMA PRN; -ONDANSETRON 4 MG/2 ML VIAL IVP ONE; -ceFAZolin 1,000 MG in SODIUM CHLORIDE 0.9% IRRIGATIO 1,000 ML IRRIGATION PRN
[2021-05-10 12:28] VITALS: TEMP 98.2
[2021-05-10] MEDS ORDERED: LIDOCAINE 1% (10MG/ML) FOR IV START INTRADERMA ONE (12:30)
--- NOTE | 2021-05-10 13:22 | P.GSHP ---
History of Present Illness H&P Date: 05/10/21 Chief Complaint: change in bowel habits, diverticulitis Patient here today for colonoscopy. She is being evaluated for colostomy reversal tomorrow. Patient underwent Lee's procedure for perforated sigmoid diverticulitis. Mild chronic pain. Past Medical History Past Medical History: Cancer, GERD/Reflux, Hypertension Additional Past Medical History / Comment(s): Hx cervical cancer in her 20's, PRE CANCER COLON POLYPS AND DIVERTICULITIS. NECK AND SHOULDER PAIN History of Any Multi-Drug Resistant Organisms: None Reported Past Surgical History: Bowel Resection, Hysterectomy Additional Past Surgical History / Comment(s): Conization of cervix, deviated septum repair. 08/14/2020 Cervical fusion Past Anesthesia/Blood Transfusion Reactions: No Reported Reaction Smoking Status: Current every day smoker - Past Family History Mother Family Medical History: Deep Vein Thrombosis (DVT) Additional Family Medical History / Comment(s): DVT IN LEG Medications and Allergies Home Medications Medication Instructions Recorded Confirmed Type Hydrocodone/Acetaminophen [[place] 1 tab PO Q6HR PRN 3 Days #12 tab 09/08/20 05/04/21 Rx 5-325] ALPRAZolam [Xanax] 0.25 mg PO DAILY PRN 05/03/21 05/04/21 History Famotidine [Pepcid] 40 mg PO HS 05/03/21 05/04/21 History Meloxicam [Mobic] 15 mg PO DAILY 05/03/21 05/09/21 History Naproxen 500 mg PO BID PRN 05/03/21 05/09/21 History Olmesartan [Benicar] 40 mg PO DAILY 05/03/21 05/04/21 History Sennosides-Docusate Sodium 1 each PO BID 05/03/21 05/04/21 History [Senokot-S] Sertraline [Zoloft] 50 mg PO DAILY 05/03/21 05/04/21 History amLODIPine [Norvasc] 5 mg PO QAM 05/03/21 05/04/21 History Allergies Allergy/AdvReac Type Severity Reaction Status Date / Time losartan Allergy Rash/Hives Verified 05/10/21 12:26 amoxicillin trihydrate AdvReac BLISTERS Verified 05/10/21 12:26 [From Augmentin] ON FACE cephalexin monohydrate AdvReac vaginal Verified 05/10/21 12:26 [From Keflex] infection lisinopril AdvReac Rash/Hives Verified 05/10/21 12:26 Penicillins AdvReac vaginal Verified 05/10/21 12:26 infection potassium clavulanate AdvReac vaginal Verified 05/10/21 12:26 [From Augmentin] infection sulfamethoxazole AdvReac vaginal Verified 05/10/21 12:26 [From Bactrim] infection trimethoprim [From Bactrim] AdvReac vaginal Verified 05/10/21 12:26 infection,HIVES Surgical - Exam Vital Signs Temp Pulse Resp BP Pulse Ox 98.2 F 57 L 16 120/61 98 05/10/21 12:27 05/10/21 12:27 05/10/21 12:27 05/10/21 12:27 05/10/21 12:27 Physical exam: General: Well-developed, well-nourished HEENT: Normocephalic, sclerae nonicteric Abdomen: Nontender, nondistended Extremities: No edema Neuro: Alert and oriented Assessment and Plan (1) Diverticulitis Narrative/Plan: Will proceed with colonoscopy at this time Current Visit: No Status: Acute Code(s): K57.92 - DVTRCLI OF INTEST, PART UNSP, W/O PERF OR ABSCESS W/O BLEED SNOMED Code(s): 831663552
[2021-05-10] MEDS ORDERED: PROPOFOL 10 MG/ML 20 ML VIAL IV ONE (13:23)
[2021-05-10 14:26] VITALS: BP 138/66; PULSE 47; RESP 20
--- NOTE | 2021-05-10 15:01 | P.PCN ---
Date of Procedure: 05/10/21 Procedure(s) Performed: PREOPERATIVE DIAGNOSIS: Change in bowel habits, diverticulitis POSTOPERATIVE DIAGNOSIS: Normal exam PROCEDURE: Colonoscopy ANESTHESIA: MAC SURGEON: Renzo Lara M.D. SPECIMENS: None ENDOSCOPIC PROCEDURE: The patient was placed on the endoscopy table in the left decubitus position. The Olympus colonoscope was inserted into the anus and passed under direct visualization to the proximal staple line. The patient had retained stool present that was evacuated manually. No inflammatory changes or neoplastic changes were seen. The scope was then advanced into the anus and passed under direct visualization to the Base of the cecum. The appendiceal orifice was visualized. From that point the scope was slowly withdrawn inspecting all surfaces carefully. There were no neoplastic inflammatory or polypoid lesions throughout the cecum, ascending, transverse, or descending co nas. No visible diverticulosis was seen. The patient was taken to the recovery room in stable condition per anesthesia guidelines. RECOMMENDATIONS: Resume diet. Proceed with colostomy reversal tomorrow.
== END 2021-05-10 14:40 | disposition home or self-care (01) ==
LOC: ORWHC2ENDO 11:48
PROVIDERS: ATTEND Surgery
DX: K57.32 Diverticulitis of large intestine without perforation or abscess without bleeding (principal); K21.9 Gastro-esophageal reflux disease without esophagitis; I10 Essential (primary) hypertension; G89.29 Other chronic pain; F41.8 Other specified anxiety disorders; F17.200 Nicotine dependence, unspecified, uncomplicated; Z79.1 Long term (current) use of non-steroidal anti-inflammatories (NSAID); Z85.038 Personal history of other malignant neoplasm of large intestine; Z85.41 Personal history of malignant neoplasm of cervix uteri; Z88.0 Allergy status to penicillin; Z88.1 Allergy status to other antibiotic agents; Z88.2 Allergy status to sulfonamides; Z88.8 Allergy status to other drugs, medicaments and biological substances; Z86.010 Personal history of colon polyps; Z79.899 Other long term (current) drug therapy
CPT/HCPCS: 45378; 44388; J2704

== ENCOUNTER 2021-05-11 07:45 | Inpatient (IN) | payer BC, OTHER ==
[2021-05-04 10:43] VITALS: BMI 23.5
[~2021-05-11 07:45] MED LIST changes: +ACETAMINOPHEN TAB 500 MG TAB PO PRN; +DEXAMETHASONE SOD PHOSPHATE 4 MG/ML 1 ML VIAL IV ONE; +HEPARIN SODIUM,PORCINE/PF 5,000 UNIT/0.5 ML SYRINGE SQ PRN; -LACTATED RINGERS 1,000 ML IV SCH; +MIDAZOLAM 2 MG/2 ML VIAL IV PRN; +SCOPOLAMINE 1.5MG/72HR PATCH TRANSDERM ONE; +metroNIDAZOLE-NS PMX 500 MG in SALINE 1 100ML.BAG IVPB PRN
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
[2021-05-11 10:33] LABS: Glucose,Whole Blood 99 mg/dL (75-99)
[2021-05-11] MEDS: LACTATED RINGERS 1,000 ML IV SCH (10:35)
[2021-05-11] MEDS: ONDANSETRON 4 MG/2 ML VIAL IVP ONE ×2 (10:45→15:08)
[2021-05-11] MEDS ORDERED: ACETAMINOPHEN IV (For NPO) 1,000 MG/100 ML VIAL IVPB ONE (11:03)
[2021-05-11] MEDS ORDERED: NEOSTIGMINE 1 MG/ML 10 ML VIAL ONE (11:58)
[2021-05-11] MEDS ORDERED: LIDOCAINE 1% INJ 10MG/ML (20 ML MDV) ONE (11:58)
[2021-05-11] MEDS ORDERED: SUCCINYLCHOLINE CHLORIDE 100 MG/5 ML SYR IV ONE (11:58)
[2021-05-11] MEDS ORDERED: GLYCOPYRROLATE 0.2 MG/ML 2 ML VIAL ONE (11:58)
[2021-05-11] MEDS ORDERED: fentaNYL (PF) 50 MCG/ML 2 ML AMP ONE (11:58)
[2021-05-11] MEDS ORDERED: KETAMINE 10 MG/ML 20 ML VIAL ONE (11:58)
[2021-05-11] MEDS ORDERED: ROCURONIUM 10 MG/ML (5 ML VIAL) IV ONE (11:58)
[2021-05-11] MEDS ORDERED: PROPOFOL 10 MG/ML 20 ML VIAL IV ONE (11:58)
[2021-05-11] MEDS ORDERED: MIDAZOLAM 2 MG/2 ML VIAL ONE (11:58)
[2021-05-11] MEDS ORDERED: ePHEDrine SULFATE/0.9% NACL/PF 50 MG/5 ML SYRINGE IV ONE (11:58)
[2021-05-11] MEDS ORDERED: PHENYLEPHRINE-0.9% NACL SYG 1,000 MCG/10 ML SYRINGE ONE (11:58)
[2021-05-11] MEDS ORDERED: GLUCAGON 1 MG/ML VIAL ONE (11:58)
[2021-05-11] MEDS ORDERED: WATER FOR INJECTION, STERILE 10 ML VIAL IV ONE (11:58)
[2021-05-11] MEDS ORDERED: HYDROmorphone (PF) 1 MG/ML ONE (11:58)
[2021-05-11] MEDS ORDERED: LACTATED RINGERS 1,000 ML IV ONE ×2 (12:33→13:49)
[2021-05-11] MEDS ORDERED: BENZOCAINE/MENTHOL LOZENG 1 EACH LOZENGE MUCOUS MEM PRN (14:54)
--- NOTE | 2021-05-11 15:00 | P.OP ---
Date of Procedure: 05/11/21 Procedure(s) Performed: PREOPERATIVE DIAGNOSIS: Diverticulitis POSTOPERATIVE DIAGNOSIS: Same PROCEDURE: Colostomy reversal SURGEON: Marco EBL: 75 mL ANESTHESIA: General COMPLICATIONS: None OPERATIVE PROCEDURE: Patient was placed on the operative table in the supine position. The patient was placed under general anesthesia. The patient was then placed in lithotomy. The stoma was closed using a pursestring 2-0 Vicryl stitch. The abdomen was prepped and draped in usual sterile fashion. An elliptical incision was made around the colostomy. Dissection through the subcutaneous fat took place using electrocautery. Entrance into the peritoneal cavity took place. The stoma was fully mobilized and reduced back into the peritoneal cavity. At that time a vertical incision was made using a scalpel through the previous midline incision. The patient had a few small fascial defects along the midline that were incorporated into our fascial opening. The Bookwalter retractor was utilized. The patient had adhesions in the abdominal cavity that were lysed using both sharp and blunt and electrocautery. The bowel was reduced back into the upper abdomen. The anticipated site of resection of the sigmoid colon appeared to reach into the pelvis without tension. Attention was then directed to the rectal stump. An additional 5 cm of so of the distal sigmoid colon and proximal rectum was excised at that time using both the LigaSure and a contour stapler. At that time the colon proximal to the stoma was carefully dissected. A colotomy was created close to the stoma. A 25 EEA stapler was opened after we had confirmed that the 25 sizer fit nicely in the rectum all the way up to the staple line. The 25 Ethicon stapler anvil was advanced into the lumen of the colon proximally through the colotomy site. The colon was then divided approximately 6-7 cm proximal to the end of the stoma using a linear 75 stapler. The anvil was brought out adjacent to the staple line at that point and a 3-0 silk pursestring suture was utilized around the anvil. The stapler was then inserted into the anus and brought up to the staple line. The obturator was brought out distal to the staple line. The 2 portions of the stapler were connected to one another and subsequently tightened and fired. The bowel was clamped proximal to the anastomosis. The rigid sigmoidoscope was utilized to fill the anastomotic site nicely with air. There was saline in the pelvis at this time. No evidence of leak was seen. Further irrigation took place. No bleeding was seen. The liver, stomach, visualized colon, and small bowel appeared normal. The fascia at the stoma site was reapproximated using interrupted [id number] #1 Vicryl sutures in a vertical fashion. The subcutaneous tissues at the colostomy site were closed using interrupted 2-0 Vicryl sutures. The midline fascia was then reapproximated usi ng 3 separate double-stranded #1 PDS sutures. The subcutaneous tissues were closed using 2-0 Vicryl sutures. The skin was then closed using tyree. Sterile dressings were then applied. DISPOSITION: Stable to recovery room
[2021-05-11] MEDS: HYDROmorphone 0.5 MG/0.5 ML SYRINGE IVP PRN ×2 (15:01→15:16)
[2021-05-11] MEDS ORDERED: diphenhydrAMINE 50 MG/ML 1 ML VIAL IVP ONE (15:09)
[2021-05-11] MEDS ORDERED: diphenhydrAMINE 50 MG/ML 1 ML VIAL ONE (15:11)
[2021-05-11] MEDS: HYDROmorphone 1 MG/ML 1 ML SYRINGE IVP PRN ×2 (17:39→22:46)
[2021-05-11] MEDS: METOCLOPRAMIDE 5 MG/ML 2 ML VIAL IVP PRN (17:43)
[2021-05-11] MEDS: HEPARIN SODIUM,PORCINE/PF 5,000 UNIT/0.5 ML SYRINGE SQ SCH ×2 (17:58→22:58)
[2021-05-11] MEDS: D5-0.45% NACL WITH KCL 20MEQ/L 1,000 ML IV SCH (18:17)
[2021-05-11] MEDS: FAMOTIDINE 20 MG/2 ML VIAL IV SCH (19:34)
[2021-05-11] MEDS: ONDANSETRON 4 MG/2 ML VIAL IVP PRN (22:57)
[2021-05-12] MEDS: HYDROmorphone 1 MG/ML 1 ML SYRINGE IVP PRN ×5 (01:37→21:07)
[2021-05-12] MEDS: METOCLOPRAMIDE 5 MG/ML 2 ML VIAL IVP PRN ×2 (01:37→11:07)
[2021-05-12] MEDS: D5-0.45% NACL WITH KCL 20MEQ/L 1,000 ML IV SCH ×4 (01:44→21:10)
[2021-05-12] MEDS: LACTATED RINGERS 1,000 ML IV SCH (05:20)
[2021-05-12 06:50] LABS: Basophils % (A) 0 %; Eosinophils % (A) 0 %; HCT 38.8 % (34.0-46.0); HGB 13.5 gm/dL (11.4-16.0); Lymphocytes # (A) 1.7 k/uL (1.0-4.8); Lymphocytes % (A) 13 %; MCHC 34.7 g/dL (31.0-37.0); Mean Platelet Volume 8.7; Monocytes # (A) 0.8 k/uL (0-1.0); Monocytes % (A) 6 %; Neutrophils # (A) 10.2 k/uL (1.3-7.7); Neutrophils % (A) 79 %; Platelet Count 261 k/uL (150-450); RBC 3.84 m/uL (3.80-5.40); RDW 12.8 % (11.5-15.5); WBC 12.9 k/uL (3.8-10.6)
[2021-05-12] MEDS: ONDANSETRON 4 MG/2 ML VIAL IVP PRN ×2 (07:17→21:08)
[2021-05-12] MEDS: HEPARIN SODIUM,PORCINE/PF 5,000 UNIT/0.5 ML SYRINGE SQ SCH ×2 (07:17→15:41)
[2021-05-12] MEDS: ALVIMOPAN 12 MG CAPSULE PO SCH ×3 (07:17→21:12)
[2021-05-12] MEDS: FAMOTIDINE 20 MG/2 ML VIAL IV SCH ×2 (07:17→21:12)
--- NOTE | 2021-05-12 09:57 | P.PN ---
Subjective Progress Note Date: 05/12/21 Principal diagnosis: Diverticulitis Patient complaining of anxiety and nausea. Some dry heaves. Pain is present but improving. No flatus. No fevers. White blood cell count 12.9. Objective - Vital Signs Vital signs: Vital Signs Temp 98.5 F 05/12/21 08:00 Pulse 86 05/12/21 08:00 Resp 18 05/12/21 08:00 BP 156/73 05/12/21 08:00 Pulse Ox 96 05/12/21 08:00 Intake & Output 05/11/21 05/12/21 05/12/21 18:59 06:59 18:59 Intake Total 2850 50 Output Total 430 500 Balance 2420 -450 Weight 68.9 kg Intake: IV 2850 Oral 50 Output: Urine 355 500 Estimated Blood Loss 75 Other: Voiding Method Indwelling Catheter Indwelling Catheter Indwelling Catheter - Exam Abdomen: Soft, mild distention, dressing clean and dry, mild tenderness - Labs CBC & Chem 7: 05/12/21 06:12 Labs: Abnormal Lab Results - Last 24 Hours (Table) 05/12/21 Range/Units 06:12 WBC 12.9 H (3.8-10.6) k/uL MCV 101.0 H (80.0-100.0) fL Neutrophils # 10.2 H (1.3-7.7) k/uL Assessment and Plan (1) Diverticulitis Narrative/Plan: Will add Toradol for pain control. Resume home meds including anxiolytics. Increase activity. Continue clears. Current Visit: No Status: Acute Code(s): K57.92 - DVTRCLI OF INTEST, PART UNSP, W/O PERF OR ABSCESS W/O BLEED SNOMED Code(s): 209921481
[2021-05-12 10:24] LABS: African American GFR (CKD) 109.1 (60.0-200.0); Anion Gap 7.3 mmol/L (4.00-12.00); BUN/Creat Ratio 25.71 Ratio (12.00-20.00); Calcium 8.8 mg/dL (8.7-10.3); Carbon Dioxide 25.7 mmol/L (21.6-31.8); Non-African American GFR(CKD) 94.2 (60.0-200.0); Potassium 4.1 mmol/L (3.5-5.5)
[2021-05-12] MEDS: KETOROLAC 15 MG/ML 1 ML VIAL IVP SCH ×2 (11:48→17:12)
--- NOTE | 2021-05-12 12:14 | P.CONS ---
History of Present Illness - History of Present Illness This is a pleasant 61 years old female with past medical history of GERD, hyp ertension, cervical cancer in her 20s and history of precancerous polyp and diverticulitis. Presents for colostomy reversal. Today is postoperative day #1 Patient is in distress due to significant nausea, she received Zofran 1 hour ago however she still feeling nausea another dose of Zofran is ordered. Social she is complaining from pain at surgical site which is bothering her but she does not want anymore pain medication otherwise will causes her nausea to worsen. The wound is closed and dressing is in place. No other complaints. No headache or confusion. No chest pain or dyspnea. Vitals are stable and patient is afebrile. Her blood pressure is a slightly elevated at 156/73 but this could be due to her distress from pain labs from last month were reviewed and they were unremarkable including CBC and basic metabolic panel. Creatinine 0.8, sodium 138, potassium 4.6. WBC 7.3, hemoglobin 14.3 and platelet 280 labs from today showing mild leukocytosis of 12.9 K, rest of CBC and BMP is unremarkable. Coronal far as not detected She is kept on D5 half-normal saline at rate of 125 mL/h Patient is a status post colonoscopy on 05/10: There were no neoplastic inflammatory or polypoid lesions throughout the cecum, ascending, transverse, or descending colon. No visible diverticulosis was seen Review of Systems Review of systems CONSTITUTIONAL: No fever, no malaise, no fatigue. HEENT: No recent visual problems or hearing problems. Denied any sore throat. CARDIOVASCULAR: No orthopnea, PND, no palpitations, no syncope. PULMONARY: No shortness of breath, no cough, no hemoptysis. GASTROINTESTINAL: No diarrhea, Normoactive bowel sounds. NEUROLOGICAL: No headaches, no weakness, no numbness. HEMATOLOGICAL: Denies any bleeding or petechiae. GENITOURINARY: Denies any burning micturition, frequency, or urgency. MUSCULOSKELETAL/RHEUMATOLOGICAL: Denies any joint pain, swelling, or any muscle pain. ENDOCRINE: Denies any polyuria or polydipsia. Past Medical History Past Medical History: Cancer, GERD/Reflux, Hypertension Additional Past Medical History / Comment(s): Hx cervical cancer in her 20's, PRE CANCER COLON POLYPS AND DIVERTICULITIS. NECK AND SHOULDER PAIN History of Any Multi-Drug Resistant Organisms: None Reported Past Surgical History: Bowel Resection, Hysterectomy Additional Past Surgical History / Comment(s): Conization of cervix, deviated septum repair. 08/14/2020 Cervical fusion Past Anesthesia/Blood Transfusion Reactions: No Reported Reaction Past Psychological History: Anxiety, Depression Additional Psychological History / Comment(s): No current problems with anxiety or depression. Smoking Status: Current every day smoker Past Alcohol Use History: Occasional Additional Past Alcohol Use History / Comment(s): STARTED SMOKING AT AGE 17 QUIT SMOKING ON AND OFF, CURRENTLY SMOKING 1 PPD Past Drug Use History: Marijuana Additional Drug Use History / Comment(s): MARIJUANA GUMMIES - USES RARELY - Past Family History Mother Family Medical History: Deep Vein Thrombosis (DVT) Additional Family Medical History / Comment(s): DVT IN LEG Medications and Allergies Home Medications Medication Instructions Recorded Confirmed Type Hydrocodone/Acetaminophen [Maynard 1 tab PO Q6HR PRN 3 Days #12 tab 09/08/20 05/04/21 Rx 5-325] ALPRAZolam [Xanax] 0.25 mg PO DAILY PRN 05/03/21 05/04/21 History Famotidine [Pepcid] 40 mg PO HS 05/03/21 05/04/21 History Meloxicam [Mobic] 15 mg PO DAILY 05/03/21 05/09/21 History Naproxen 500 mg PO BID PRN 05/03/21 05/09/21 History Olmesartan [Benicar] 40 mg PO DAILY 05/03/21 05/11/21 History Sennosides-Docusate Sodium 1 each PO BID 05/03/21 05/04/21 History [Senokot-S] Sertraline [Zoloft] 50 mg PO DAILY 05/03/21 05/04/21 History amLODIPine [Norvasc] 5 mg PO QAM 05/03/21 05/04/21 History Allergies Allergy/AdvReac Type Severity Reaction Status Date / Time losartan Allergy Rash/Hives Verified 05/11/21 10:27 amoxicillin trihydrate AdvReac BLISTERS Verified 05/11/21 10:27 [From Augmentin] ON FACE cephalexin monohydrate AdvReac vaginal Verified 05/11/21 10:27 [From Keflex] infection lisinopril AdvReac Rash/Hives Verified 05/11/21 10:27 Penicillins AdvReac vaginal Verified 05/11/21 10:27 infection potassium clavulanate AdvReac vaginal Verified 05/11/21 10:27 [From Augmentin] infection sulfamethoxazole AdvReac vaginal Verified 05/11/21 10:27 [From Bactrim] infection trimethoprim [From Bactrim] AdvReac vaginal Verified 05/11/21 10:27 infection,HIVES Physical Exam Vitals: Vital Signs Temp Pulse Pulse Resp BP Pulse Ox 05/12/21 08:00 98.5 F 86 18 156/73 96 05/12/21 01:33 98.6 F 82 15 177/76 97 05/11/21 20:00 64 68 16 05/11/21 19:23 97.9 F 68 16 148/69 100 05/11/21 18:15 66 148/69 100 05/11/21 18:12 64 100 14 148/69 05/11/21 17:46 55 L 134/63 05/11/21 17:30 55 L 134/63 05/11/21 17:16 60 150/66 100 05/11/21 17:15 60 150/66 05/11/21 17:00 83 174/91 100 05/11/21 16:49 96 05/11/21 16:45 82 159/93 100 05/11/21 16:30 97.3 F L 75 149/64 98 05/11/21 16:17 97.3 F L 78 18 146/78 96 05/11/21 16:02 71 18 152/57 94 L 05/11/21 15:47 91 16 160/70 97 05/11/21 15:31 80 18 146/67 95 05/11/21 15:16 82 16 146/67 95 05/11/21 14:57 96.8 F L 77 14 122/88 96 Intake and Output 05/11/21 05/12/21 05/12/21 22:59 06:59 14:59 Intake Total 450 Output Total 500 Balance 450 -500 Intake: IV 400 Oral 50 Output: Urine 500 Other: Voiding Method Indwelling Catheter Indwelling Catheter Weight 68.9 kg GENERAL: The patient is alert and oriented x3, not in any acute distress. Well developed, well nourished. HEENT: Pupils are round and equally reacting to light. EOMI. No scleral icterus. No conjunctival pallor. Normocephalic, atraumatic. No pharyngeal erythema. No thyromegaly. CARDIOVASCULAR: S1 and S2 present. No murmurs, rubs, or gallops. PULMONARY: Chest is clear to auscultation, no wheezing or crackles. -ABDOMEN: Soft,, nondistended, normoactive bowel sounds. No palpable organomegaly. Midline vertical wound is closed with a dressing is in place, expected surrounding tenderness MUSCULOSKELETAL: No joint swelling or deformity. EXTREMITIES: No cyanosis, clubbing, or pedal edema. NEUROLOGICAL: Gross neurological examination did not reveal any focal deficits. SKIN: No rashes. no petechiae. Results CBC & Chem 7: 05/12/21 06:12 05/12/21 06:12 Labs: Abnormal Lab Results - Last 24 Hours (Table) 05/12/21 05/12/21 Range/Units 06:12 06:12 WBC 12.9 H (3.8-10.6) k/uL MCV 101.0 H (80.0-100.0) fL Neutrophils # 10.2 H (1.3-7.7) k/uL BUN/Creatinine Ratio 25.71 H (12.00-20.00) Ratio Glucose 126 H (70-110) mg/dL Assessment and Plan Assessment: Admitted for colostomy reversal Recent history of diverticulitis, status post Lee's procedure for perforated sigmoid diverticulitis leukocytosis, most likely reactive Hypertension History of GERD History of precancerous polyp and diverticulitis Remote history of cervical cancer chronic abdominal pain Chronic back pain and neck pain Plan: This is a pleasant 61 years old female was admitted for reversal of her colostomyContinue with pain management, continue with Zofran as needed as well as she is on Reglan. No need for antibiotics, keep monitoring white cell count labs and medication were reviewed.. Continue same treatment. Continue with sy mptomatic treatment. Resume home medication. Monitor lytes and vitals. DVT and GI prophylaxis. Further recommendations depends on the clinical course of the patient DVT prophylaxis and pain management per primary surgery team
[2021-05-12] MEDS: ACETAMINOPHEN TAB 325 MG TAB PO PRN (21:12)
--- NOTE | 2021-05-12 21:42 | XR ---
EXAMINATION TYPE: XR chest 1V portable DATE OF EXAM: 05/12/2021 COMPARISON: Chest radiograph 08/09/2020 HISTORY: Diverticulitis TECHNIQUE: Single frontal view of the chest is obtained. FINDINGS: Cardiomediastinal silhouette appears within normal limits. Linear densities within the right and left lower lungs likely subsegmental atelectasis and or scarring. No dense focal consolidation, pleural e ffusion, or pneumothorax. Surgical changes of the lower cervical spine; otherwise, the visualized oss eous structures appear intact. Limited views of the upper abdomen appear unremarkable. IMPRESSION: 1. No acute cardiopulmonary process. 2. Linear densities within the lower lungs, left greater than right, likely represents subsegmental a telectasis and/or scarring.
[2021-05-13] MEDS: KETOROLAC 15 MG/ML 1 ML VIAL IVP SCH ×4 (00:17→17:29)
[2021-05-13] MEDS: LEVOFLOXACIN 500 MG TAB PO SCH ×2 (00:17→20:18)
[2021-05-13] MEDS: ALPRAZolam 0.25 MG TAB PO PRN (00:18)
[2021-05-13] MEDS: metroNIDAZOLE 500 MG TAB PO SCH ×4 (00:18→20:16)
[2021-05-13] MEDS: HEPARIN SODIUM,PORCINE/PF 5,000 UNIT/0.5 ML SYRINGE SQ SCH ×3 (02:38→16:34)
[2021-05-13] MEDS: ACETAMINOPHEN TAB 325 MG TAB PO PRN (03:22)
[2021-05-13] MEDS: D5-0.45% NACL WITH KCL 20MEQ/L 1,000 ML IV SCH ×3 (05:44→20:16)
[2021-05-13] MEDS: LACTATED RINGERS 1,000 ML IV SCH (05:46)
[2021-05-13] MEDS: FAMOTIDINE 20 MG/2 ML VIAL IV SCH ×2 (07:55→20:16)
[2021-05-13] MEDS: SERTRALINE 50 MG TAB PO SCH (07:56)
[2021-05-13] MEDS: ALVIMOPAN 12 MG CAPSULE PO SCH ×2 (07:56→20:16)
[2021-05-13] MEDS: amLODIPine 5 MG TAB PO SCH (07:57)
[2021-05-13] MEDS: OLMESARTAN 20 MG PO SCH (07:57)
[2021-05-13] MEDS: HYDROmorphone 1 MG/ML 1 ML SYRINGE IVP PRN ×2 (08:03→16:34)
--- NOTE | 2021-05-13 09:39 | P.PN ---
Subjective Progress Note Date: 05/13/21 Principal diagnosis: Diverticulitis Patient doing well today. Did have a fever last night of 101.7. Chest x-ray and urinalysis was obtained. Patient was started on antibiotics per medicine. Pain and anxiety are improved today. She is tolerating her clear liquids. No nausea. She would like more to eat. No flatus or bowel movement. Objective - Vital Signs Vital signs: Vital Signs Temp 98.8 F 05/13/21 07:55 Pulse 69 05/13/21 07:55 Resp 20 05/13/21 08:00 BP 104/62 05/13/21 07:55 Pulse Ox 95 05/13/21 07:55 Intake & Output 05/12/21 05/13/21 05/13/21 18:59 06:59 18:59 Intake Total 1500 Output Total 750 500 Balance 750 -500 Intake: IV 1500 D5-0.45% NaCl with KCl 1500 20Meq/l 1,000 ml @ 125 mls/hr IV .Q8H [facility] Rx#: [id number] Output: Urine 750 500 Other: Voiding Method Indwelling Catheter Indwelling Catheter Indwelling Catheter - Exam Abdomen: Soft, mild distention, dressing clean and dry, mild tenderness - Labs CBC & Chem 7: 05/12/21 06:12 05/12/21 06:12 Labs: Abnormal Lab Results - Last 24 Hours (Table) 05/12/21 Range/Units 06:12 BUN/Creatinine Ratio 25.71 H (12.00-20.00) Ratio Glucose 126 H (70-110) mg/dL Assessment and Plan (1) Diverticulitis Narrative/Plan: Patient doing better today. Advance diet to full liquids. Ambulate. May remove Trinh catheter. Check labs tomorrow. Current Visit: No Status: Acute Code(s): K57.92 - DVTRCLI OF INTEST, PART UNSP, W/O PERF OR ABSCESS W/O BLEED SNOMED Code(s): 583069480
[2021-05-13 12:27] LABS: Basophils # (A) 0.02 X 10*3/uL (0.00-0.10); Basophils % (A) 0.2 %; Eosinophils # (A) 0.12 X 10*3/uL (0.04-0.35); Eosinophils % (A) 1.4 %; HCT 31.1 % (37.2-46.3); HGB 10.2 g/dL (12.0-15.0); Lymphocytes # (A) 1.32 X 10*3/uL (0.90-5.00); Lymphocytes % (A) 15.1 %; MCH 33.2 pg (27.0-32.0); MCHC 32.8 g/dL (32.0-37.0); MCV 101.3 fL (80.0-97.0); Monocytes # (A) 0.68 X 10*3/uL (0.20-1.00); Monocytes % (A) 7.8 %; Neutrophils % (A) 75.2 %; Platelet Count 213 X 10*3/uL (140-440); RBC 3.07 X 10*6/uL (4.10-5.20); RDW 13.2 % (11.5-14.5); WBC 8.77 X 10*3/uL (4.50-10.00)
[2021-05-13 13:07] LABS: African American GFR (CKD) 114.8 (60.0-200.0); Anion Gap 3.1 mmol/L (4.00-12.00); Calcium 8.2 mg/dL (8.7-10.3); Carbon Dioxide 23.9 mmol/L (21.6-31.8); Non-African American GFR(CKD) 99.1 (60.0-200.0); Potassium 4.3 mmol/L (3.5-5.5)
--- NOTE | 2021-05-13 18:58 | P.PN ---
Subjective This is a pleasant 61 years old female with past medical history of GERD, hypertension, cervical cancer in her 20s and history of precancerous polyp and diverticulitis. Presents for colostomy reversal. Today is postoperative day #1 Patient is in distress due to significant nausea, she received Zofran 1 hour ago however she still feeling nausea another dose of Zofran is ordered. Social she is complaining from pain at surgical site which is bothering her but she does not want anymore pain medication otherwise will causes her nausea to worsen. The wound is closed and dressing is in place. No other complaints. No headache or confusion. No chest pain or dyspnea. Vitals are stable and patient is afebrile. Her blood pressure is a slightly elevated at 156/73 but this could be due to her distress from pain labs from last month were reviewed and they were unremarkable including CBC and basic metabolic panel. Creatinine 0.8, sodium 138, potassium 4.6. WBC 7.3, hemoglobin 14.3 and platelet 280 labs from today showing mild leukocytosis of 12.9 K, rest of CBC and BMP is unremarkable. Coronal far as not detected She is kept on D5 half-normal saline at rate of 125 mL/h Patient is a status post colonoscopy on 05/10: There were no neoplastic inflammatory or polypoid lesions throughout the cecum, ascending, transverse, or descending colon. No visible diverticulosis was seen 05/13/2021 Her nausea and abdominal pain are improving however patient still looks in distress and uncomfortable related to her recent surgery with liquid diet c urrently but no bowel movement or passing gases. Yesterday she had a fever of 101.7, was started on antibiotic oral Levaquin and Flagyl, fever today. WBC is back to normal at 8.7. She remains on IV fluids per surgery team We will check C-reactive protein and procalcitonin Objective - Vital Signs Vital signs: Vital Signs Temp 98.8 F 05/13/21 07:55 Pulse 69 05/13/21 07:55 Resp 20 05/13/21 08:00 BP 104/62 05/13/21 07:55 Pulse Ox 95 05/13/21 07:55 Intake & Output 05/12/21 05/13/21 05/13/21 18:59 06:59 18:59 Intake Total 1500 Output Total 750 500 Balance 750 -500 Intake: IV 1500 D5-0.45% NaCl with KCl 1500 20Meq/l 1,000 ml @ 125 mls/hr IV .Q8H [facility] Rx#: [id number] Output: Urine 750 500 Other: Voiding Method Indwelling Catheter Indwelling Catheter Indwelling Catheter - Exam GENERAL: The patient is alert and oriented x3, not in any acute distress. Well developed, well nourished. HEENT: Pupils are round and equally reacting to light. EOMI. No scleral icterus. No conjunctival pallor. Normocephalic, atraumatic. No pharyngeal erythema. No thyromegaly. CARDIOVASCULAR: S1 and S2 present. No murmurs, rubs, or gallops. PULMONARY: Chest is clear to auscultation, no wheezing or crackles. -ABDOMEN: Soft,, nondistended, normoactive bowel sounds. No palpable organomegaly. Midline vertical wound is closed with a dressing is in place, expected surrounding tenderness MUSCULOSKELETAL: No joint swelling or deformity. EXTREMITIES: No cyanosis, clubbing, or pedal edema. NEUROLOGICAL: Gross neurological examination did not reveal any focal deficits. SKIN: No rashes. no petechiae. - Labs CBC & Chem 7: 05/13/21 07:45 05/13/21 07:45 Labs: Microbiology - Last 24 Hours (Table) 05/12/21 Unknown Urine Culture - Preliminary Urine,Clean Catch Assessment and Plan Assessment: Admitted for colostomy reversal Suspected intra-abdominal infection Recent history of diverticulitis, status post Lee's procedure for perforated sigmoid diverticulitis leukocytosis, most likely reactive Hypertension History of GERD History of precancerous polyp and diverticulitis Remote history of cervical cancer chronic abdominal pain Chronic back pain and neck pain Plan: This is a pleasant 61 years old female was admitted for reversal of her colostomyContinue with pain management, continue with Zofran as needed as well as she is on Reglan. Continue with Flagyl and Levaquin, follow-up C-reactive protein and protocol stone and and CBC labs and medication were reviewed.. Continue same treatment. Continue with symptomatic treatment. Resume home medication. Monitor lytes and vitals. DVT and GI prophylaxis. Further recommendations depends on the clinical course of the patient DVT prophylaxis and pain management per primary surgery team
[2021-05-13] MEDS: HYDROcodone/APAP 5-325MG 1 EACH TAB PO PRN (21:10)
[2021-05-14] MEDS: KETOROLAC 15 MG/ML 1 ML VIAL IVP SCH ×5 (00:15→21:50)
[2021-05-14] MEDS: HEPARIN SODIUM,PORCINE/PF 5,000 UNIT/0.5 ML SYRINGE SQ SCH ×4 (00:16→21:47)
[2021-05-14] MEDS: ALPRAZolam 0.25 MG TAB PO PRN (02:15)
[2021-05-14] MEDS: D5-0.45% NACL WITH KCL 20MEQ/L 1,000 ML IV SCH ×3 (03:50→21:47)
[2021-05-14] MEDS: LACTATED RINGERS 1,000 ML IV SCH (06:05)
[2021-05-14] MEDS: amLODIPine 5 MG TAB PO SCH (08:48)
[2021-05-14] MEDS: SERTRALINE 50 MG TAB PO SCH (08:48)
[2021-05-14] MEDS: FAMOTIDINE 20 MG/2 ML VIAL IV SCH (08:48)
[2021-05-14] MEDS: metroNIDAZOLE 500 MG TAB PO SCH ×3 (08:48→21:48)
[2021-05-14] MEDS: ALVIMOPAN 12 MG CAPSULE PO SCH ×2 (08:48→21:47)
[2021-05-14] MEDS: OLMESARTAN 20 MG PO SCH (08:49)
[2021-05-14] MEDS: HYDROcodone/APAP 5-325MG 1 EACH TAB PO PRN ×3 (09:14→21:48)
--- NOTE | 2021-05-14 11:18 | P.PN ---
<NolaTia - Last Filed: 05/14/21 13:14> Subjective Progress Note Date: 05/14/21 CHIEF COMPLAINT: Diverticulosis HISTORY OF PRESENT ILLNESS: Patient is doing well today. She is status post col ostomy reversal on 05/11/2021. She's been up and ambulating. She is passing flatus. No bowel movement since prior to surgery. She denies any nausea or vomiting. She is on a full liquid diet and tolerating well, however states that she's not eating much because she does not care for the diarrhea. Patient has been afebrile overnight. She remains on Flagyl and Levaquin. Today's labs are currently pending. PHYSICAL EXAM: VITAL SIGNS: Reviewed. GENERAL: Well-developed in no acute distress. HEENT: No sclera icterus. Extraocular movements grossly intact. Moist buccal mucosa. Head is atraumatic, normocephalic. ABDOMEN: Soft. Nondistended. Mild surgical tenderness. Abdominal dressings clean dry and intact. Patient has abdominal binder on. NEUROLOGIC: Alert and oriented. Cranial nerves II through XII grossly intact. ASSESSMENT: 1. Diverticulitis, status post colostomy reversal PLAN: -Continue full liquid diet -Ensure ordered -Encourage ambulation -Continue use of incentive spirometer -We will advance to dysphasia level III low fiber diet in the morning The impression and plan of care has been dictated as directed. Dr. Lara I performed a history and examination of this patient, discussed the same with the dictator. I agree with the dictator's note ,documented as a scribe. Any additional findings or plans will be noted. Objective - Vital Signs Vital signs: Vital Signs Temp 98.8 F 05/14/21 08:00 Pulse 69 05/14/21 08:00 Resp 18 05/14/21 08:00 BP 123/69 05/14/21 08:00 Pulse Ox 95 05/14/21 08:00 Intake & Output 05/13/21 05/14/21 05/14/21 18:59 06:59 18:59 Intake Total 1500 Output Total 500 Balance 1000 Intake: IV 1500 D5-0.45% NaCl with KCl 1500 20Meq/l 1,000 ml @ 125 mls/hr IV .Q8H [facility] Rx#: [id number] Output: Urine 500 Uretheral (Trinh) 500 Other: Voiding Method Indwelling Catheter Indwelling Catheter Toilet # Voids 1 5 # Bowel Movements 0 - Labs CBC & Chem 7: 05/14/21 05:59 05/13/21 07:45 Labs: Abnormal Lab Results - Last 24 Hours (Table) 05/13/21 05/13/21 05/13/21 Range/Units 07:45 07:45 07:45 RBC 3.07 L (4.10-5.20) X 10*6/uL Hgb 10.2 L (12.0-15.0) g/dL Hct 31.1 L (37.2-46.3) % MCV 101.3 H (80.0-97.0) fL MCH 33.2 H (27.0-32.0) pg Chloride 111 H (96-109) mmol/L Anion Gap 3.10 L (4.00-12.00) mmol/L Glucose 117 H (70-110) mg/dL Calcium 8.2 L (8.7-10.3) mg/dL C-Reactive Protein 8.5 H (<1.0) mg/dL Microbiology - Last 24 Hours (Table) 05/12/21 Unknown Urine Culture - Preliminary Urine,Clean Catch <Renzo Lara - Last Filed: 05/14/21 14:37> Subjective As above. Patient doing well today. Tolerating diet. She is having flatus. Will increase diet at this time. Ambulate. Objective - Vital Signs Vital signs: Vital Signs Temp 98.8 F 05/14/21 08:00 Pulse 69 05/14/21 08:00 Resp 18 05/14/21 08:00 BP 123/69 05/14/21 08:00 Pulse Ox 95 05/14/21 08:00 Intake & Output 05/13/21 05/14/21 05/14/21 18:59 06:59 18:59 Intake Total 1500 Output Total 500 Balance 1000 Intake: IV 1500 D5-0.45% NaCl with KCl 1500 20Meq/l 1,000 ml @ 125 mls/hr IV .Q8H [facility] Rx#: [id number] Output: Urine 500 Uretheral (Trinh) 500 Other: Voiding Method Indwelling Catheter Indwelling Catheter Toilet # Voids 1 5 # Bowel Movements 0 - Labs CBC & Chem 7: 05/14/21 05:59 09/12/21 07:45 Labs: Abnormal Lab Results - Last 24 Hours (Table) 05/13/21 05/13/21 05/14/21 Range/Units 07:45 07:45 05:59 RBC 2.93 L (4.10-5.20) X 10*6/uL Hgb 9.5 L (12.0-15.0) g/dL Hct 29.2 L (37.2-46.3) % MCV 99.7 H (80.0-97.0) fL MCH 32.4 H (27.0-32.0) pg MPV 12.4 H (9.5-12.2) fL C-Reactive Protein 8.5 H (<1.0) mg/dL Procalcitonin 0.22 H (0.02-0.09) ng/mL Microbiology - Last 24 Hours (Table) 05/12/21 Unknown Urine Culture - Preliminary Urine,Clean Catch Assessment and Plan (1) Diverticulitis Current Visit: No Status: Acute Code(s): K57.92 - DVTRCLI OF INTEST, PART UNSP, W/O PERF OR ABSCESS W/O BLEED SNOMED Code(s): 330676619
--- NOTE | 2021-05-14 12:11 | P.PN ---
Subjective This is a pleasant 61 years old female with past medical history of GERD, hypertension, cervical cancer in her 20s and history of precancerous polyp and diverticulitis. Presents for colostomy reversal. Today is postoperative day #1 Patient is in distress due to significant nausea, she received Zofran 1 hour ago however she still feeling nausea another dose of Zofran is ordered. Social she is complaining from pain at surgical site which is bothering her but she does not want anymore pain medication otherwise will causes her nausea to worsen. The wound is closed and dressing is in place. No other complaints. No headache or confusion. No chest pain or dyspnea. Vitals are stable and patient is afebrile. Her blood pressure is a slightly elevated at 156/73 but this could be due to her distress from pain labs from last month were reviewed and they were unremarkable including CBC and basic metabolic panel. Creatinine 0.8, sodium 138, potassium 4.6. WBC 7.3, hemoglobin 14.3 and platelet 280 labs from today showing mild leukocytosis of 12.9 K, rest of CBC and BMP is unremarkable. Coronal far as not detected She is kept on D5 half-normal saline at rate of 125 mL/h Patient is a status post colonoscopy on 05/10: There were no neoplastic inflammatory or polypoid lesions throughout the cecum, ascending, transverse, or descending colon. No visible diverticulosis was seen 05/13/2021 Her nausea and abdominal pain are improving however patient still looks in distress and uncomfortable related to her recent surgery with liquid diet c urrently but no bowel movement or passing gases. Yesterday she had a fever of 101.7, was started on antibiotic oral Levaquin and Flagyl, fever today. WBC is back to normal at 8.7. She remains on IV fluids per surgery team We will check C-reactive protein and procalcitonin 05/14/2021 She is doing well every day, with less abdominal pain and today she rated as a 3/10, she tolerates liquid diet but she consumes only little amount because she states she does not like hospital food. She is passing gas but no bowel movement yet. No more fever or leukocytosis. C-reactive protein is elevated but pro- calcitonin is pending She currently states on oral Levaquin and Flagyl. Also urine culture is pending she is also on D5 half-normal saline at 1 25/h Objective - Vital Signs Vital signs: Vital Signs Temp 98.8 F 05/14/21 08:00 Pulse 69 05/14/21 08:00 Resp 18 05/14/21 08:00 BP 123/69 05/14/21 08:00 Pulse Ox 95 05/14/21 08:00 Intake & Output 05/13/21 05/14/21 05/14/21 18:59 06:59 18:59 Intake Total 1500 Output Total 500 Balance 1000 Intake: IV 1500 D5-0.45% NaCl with KCl 1500 20Meq/l 1,000 ml @ 125 mls/hr IV .Q8H SOCORRO Rx#: [id number] Output: Urine 500 Uretheral (Trinh) 500 Other: Voiding Method Indwelling Catheter Indwelling Catheter Toilet # Voids 1 5 # Bowel Movements 0 - Exam GENERAL: The patient is alert and oriented x3, not in any acute distress. Well developed, well nourished. HEENT: Pupils are round and equally reacting to light. EOMI. No scleral icterus. No conjunctival pallor. Normocephalic, atraumatic. No pharyngeal erythema. No thyromegaly. CARDIOVASCULAR: S1 and S2 present. No murmurs, rubs, or gallops. PULMONARY: Chest is clear to auscultation, no wheezing or crackles. -ABDOMEN: Soft,, nondistended, normoactive bowel sounds. No palpable organomegaly. Midline vertical wound is closed with a dressing is in place, expected surrounding tenderness MUSCULOSKELETAL: No joint swelling or deformity. EXTREMITIES: No cyanosis, clubbing, or pedal edema. NEUROLOGICAL: Gross neurological examination did not reveal any focal deficits. SKIN: No rashes. no petechiae. - Labs CBC & Chem 7: 05/13/21 07:45 05/13/21 07:45 Labs: Abnormal Lab Results - Last 24 Hours (Table) 05/13/21 05/13/21 05/13/21 Range/Units 07:45 07:45 07:45 RBC 3.07 L (4.10-5.20) X 10*6/uL Hgb 10.2 L (12.0-15.0) g/dL Hct 31.1 L (37.2-46.3) % MCV 101.3 H (80.0-97.0) fL MCH 33.2 H (27.0-32.0) pg Chloride 111 H (96-109) mmol/L Anion Gap 3.10 L (4.00-12.00) mmol/L Glucose 117 H (70-110) mg/dL Calcium 8.2 L (8.7-10.3) mg/dL C-Reactive Protein 8.5 H (<1.0) mg/dL Microbiology - Last 24 Hours (Table) 05/12/21 Unknown Urine Culture - Preliminary Urine,Clean Catch Assessment and Plan Assessment: Admitted for colostomy reversal Suspected intra-abdominal infection Recent history of diverticulitis, status post Lee's procedure for perforated sigmoid diverticulitis leukocytosis, most likely reactive Hypertension History of GERD History of precancerous polyp and diverticulitis Remote history of cervical cancer chronic abdominal pain Chronic back pain and neck pain Plan: This is a pleasant 61 years old female was admitted for reversal of her colostomyContinue with pain management, continue with Zofran as needed as well as she is on Reglan. Continue with Flagyl and Levaquin, follow-up procalcitonin labs and medication were reviewed.. Continue same treatment. Continue with symptomatic treatment. Resume home medication. Monitor lytes and vitals. DVT and GI prophylaxis. Further recommendations depends on the clinical course of the patient DVT prophylaxis and pain management per primary surgery team
[2021-05-14 12:31] LABS: Basophils # (A) 0.02 X 10*3/uL (0.00-0.10); Basophils % (A) 0.3 %; Eosinophils % (A) 3.4 %; HCT 29.2 % (37.2-46.3); HGB 9.5 g/dL (12.0-15.0); Lymphocytes # (A) 1.39 X 10*3/uL (0.90-5.00); Lymphocytes % (A) 23.6 %; MCH 32.4 pg (27.0-32.0); MCHC 32.5 g/dL (32.0-37.0); MCV 99.7 fL (80.0-97.0); Mean Platelet Volume 12.4 fL (9.5-12.2); Monocytes # (A) 0.57 X 10*3/uL (0.20-1.00); Monocytes % (A) 9.7 %; Neutrophils # (A) 3.71 X 10*3/uL (1.80-7.70); Neutrophils % (A) 62.8 %; Platelet Count 199 X 10*3/uL (140-440); RBC 2.93 X 10*6/uL (4.10-5.20); RDW 12.5 % (11.5-14.5)
[2021-05-14 14:46] LABS: African American GFR (CKD) 114.8 (60.0-200.0); Anion Gap 4.2 mmol/L (4.00-12.00); BUN/Creat Ratio 11.67 Ratio (12.00-20.00); Calcium 8.3 mg/dL (8.7-10.3); Carbon Dioxide 24.8 mmol/L (21.6-31.8); Non-African American GFR(CKD) 99.1 (60.0-200.0); Potassium 4.4 mmol/L (3.5-5.5)
[2021-05-14] MEDS: LEVOFLOXACIN 500 MG TAB PO SCH (21:47)
[2021-05-14] MEDS: FAMOTIDINE 20 MG TAB PO SCH (21:48)
[2021-05-15] MEDS: LACTATED RINGERS 1,000 ML IV SCH ×2 (06:19→22:13)
[2021-05-15] MEDS: KETOROLAC 15 MG/ML 1 ML VIAL IVP SCH ×4 (06:22→22:39)
[2021-05-15] MEDS: ALVIMOPAN 12 MG CAPSULE PO SCH (08:14)
[2021-05-15] MEDS: FAMOTIDINE 20 MG TAB PO SCH ×2 (08:14→22:39)
[2021-05-15] MEDS: metroNIDAZOLE 500 MG TAB PO SCH ×3 (08:14→22:38)
[2021-05-15] MEDS: amLODIPine 5 MG TAB PO SCH (08:14)
[2021-05-15] MEDS: HEPARIN SODIUM,PORCINE/PF 5,000 UNIT/0.5 ML SYRINGE SQ SCH ×3 (08:14→22:13)
[2021-05-15] MEDS: SERTRALINE 50 MG TAB PO SCH (08:14)
[2021-05-15] MEDS: HYDROcodone/APAP 5-325MG 1 EACH TAB PO PRN ×3 (08:15→22:39)
[2021-05-15] MEDS: OLMESARTAN 20 MG PO SCH (10:19)
[2021-05-15] MEDS: D5-0.45% NACL WITH KCL 20MEQ/L 1,000 ML IV SCH ×3 (10:31→22:13)
[2021-05-15 11:01] LABS: Basophils % (A) 0 %; Eosinophils # (A) 0.2 k/uL (0-0.7); Eosinophils % (A) 4 %; HGB 11.4 gm/dL (11.4-16.0); Lymphocytes # (A) 1.4 k/uL (1.0-4.8); Lymphocytes % (A) 23 %; MCH 34.8 pg (25.0-35.0); MCHC 34.5 g/dL (31.0-37.0); MCV 100.9 fL (80.0-100.0); Mean Platelet Volume 9.1; Monocytes # (A) 0.4 k/uL (0-1.0); Monocytes % (A) 6 %; Neutrophils # (A) 3.7 k/uL (1.3-7.7); Neutrophils % (A) 65 %; Platelet Count 241 k/uL (150-450); RBC 3.27 m/uL (3.80-5.40); RDW 12.5 % (11.5-15.5); WBC 5.8 k/uL (3.8-10.6)
--- NOTE | 2021-05-15 11:49 | P.PN ---
Subjective This is a pleasant 61 years old female with past medical history of GERD, hypertension, cervical cancer in her 20s and history of precancerous polyp and diverticulitis. Presents for colostomy reversal. Today is postoperative day #1 Patient is in distress due to significant nausea, she received Zofran 1 hour ago however she still feeling nausea another dose of Zofran is ordered. Social she is complaining from pain at surgical site which is bothering her but she does not want anymore pain medication otherwise will causes her nausea to worsen. The wound is closed and dressing is in place. No other complaints. No headache or confusion. No chest pain or dyspnea. Vitals are stable and patient is afebrile. Her blood pressure is a slightly elevated at 156/73 but this could be due to her distress from pain labs from last month were reviewed and they were unremarkable including CBC and basic metabolic panel. Creatinine 0.8, sodium 138, potassium 4.6. WBC 7.3, hemoglobin 14.3 and platelet 280 labs from today showing mild leukocytosis of 12.9 K, rest of CBC and BMP is unremarkable. Coronal far as not detected She is kept on D5 half-normal saline at rate of 125 mL/h Patient is a status post colonoscopy on 05/10: There were no neoplastic inflammatory or polypoid lesions throughout the cecum, ascending, transverse, or descending colon. No visible diverticulosis was seen 05/13/2021 Her nausea and abdominal pain are improving however patient still looks in distress and uncomfortable related to her recent surgery with liquid diet c urrently but no bowel movement or passing gases. Yesterday she had a fever of 101.7, was started on antibiotic oral Levaquin and Flagyl, fever today. WBC is back to normal at 8.7. She remains on IV fluids per surgery team We will check C-reactive protein and procalcitonin 05/14/2021 She is doing well every day, with less abdominal pain and today she rated as a 3/10, she tolerates liquid diet but she consumes only little amount because she states she does not like hospital food. She is passing gas but no bowel movement yet. No more fever or leukocytosis. C-reactive protein is elevated but pro- calcitonin is pending She currently states on oral Levaquin and Flagyl. Also urine culture is pending she is also on D5 half-normal saline at 1 25/h 05/15/2021 Patient is on low fiber diet but she developed pain after all the scrambled eggs this morning without nausea. She is passing gas but no bowel movement. No fever and leukocytosis is back to normal. We will recheck C-reactive protein and procalcitonin Continue with oral Levaquin and Flagyl Objective - Vital Signs Vital signs: Vital Signs Temp 98.6 F 05/15/21 08:00 Pulse 70 05/15/21 08:00 Resp 18 05/15/21 08:00 BP 114/60 05/15/21 08:00 Pulse Ox 97 05/15/21 08:00 Intake & Output 05/14/21 05/15/21 05/15/21 18:59 06:59 18:59 Intake Total 670 Output Total 500 Balance 170 Intake: Oral 670 Output: Urine 500 Other: Voiding Method Toilet Toilet Toilet # Voids 10 1 # Bowel Movements 0 - Exam GENERAL: The patient is alert and oriented x3, not in any acute distress. Well developed, well nourished. HEENT: Pupils are round and equally reacting to light. EOMI. No scleral icterus. No conjunctival pallor. Normocephalic, atraumatic. No pharyngeal erythema. No thyromegaly. CARDIOVASCULAR: S1 and S2 present. No murmurs, rubs, or gallops. PULMONARY: Chest is clear to auscultation, no wheezing or crackles. -ABDOMEN: Soft,, nondistended, normoactive bowel sounds. No palpable organomegaly. Midline vertical wound is closed with a dressing is in place, expected surrounding tenderness MUSCULOSKELETAL: No joint swelling or deformity. EXTREMITIES: No cyanosis, clubbing, or pedal edema. NEUROLOGICAL: Gross neurological examination did not reveal any focal deficits. SKIN: No rashes. no petechiae. - Labs CBC & Chem 7: 05/15/21 10:30 05/14/21 05:59 Labs: Abnormal Lab Results - Last 24 Hours (Table) 05/13/21 05/14/21 05/14/21 Range/Units 07:45 05:59 05:59 RBC 2.93 L (4.10-5.20) X 10*6/uL Hgb 9.5 L (12.0-15.0) g/dL Hct 29.2 L (37.2-46.3) % MCV 99.7 H (80.0-97.0) fL MCH 32.4 H (27.0-32.0) pg MPV 12.4 H (9.5-12.2) fL Chloride 110 H (96-109) mmol/L BUN 7.0 L (9.0-27.0) mg/dL BUN/Creatinine Ratio 11.67 L (12.00-20.00) Ratio Calcium 8.3 L (8.7-10.3) mg/dL Procalcitonin 0.22 H (0.02-0.09) ng/mL 05/15/21 Range/Units 10:30 RBC 3.27 L (4.10-5.20) X 10*6/uL Hgb (12.0-15.0) g/dL Hct 33.0 L (37.2-46.3) % MCV 100.9 H (80.0-97.0) fL MCH (27.0-32.0) pg MPV (9.5-12.2) fL Chloride (96-109) mmol/L BUN (9.0-27.0) mg/dL BUN/Creatinine Ratio (12.00-20.00) Ratio Calcium (8.7-10.3) mg/dL Procalcitonin (0.02-0.09) ng/mL Microbiology - Last 24 Hours (Table) 05/12/21 Unknown Urine Culture - Final Urine,Clean Catch Assessment and Plan Assessment: Admitted for colostomy reversal Suspected intra-abdominal infection Recent history of diverticulitis, status post Lee's procedure for perforated sigmoid diverticulitis leukocytosis, most likely reactive Hypertension History of GERD History of precancerous polyp and diverticulitis Remote history of cervical cancer chronic abdominal pain Chronic back pain and neck pain Plan: This is a pleasant 61 years old female was admitted for reversal of her colostomy Continue with pain management, continue with Zofran as needed as well as she is on Reglan. Continue with Flagyl and Levaquin, follow-up procalcitonin and C-reactive protein labs and medication were reviewed.. Continue same treatment. Continue with symptomatic treatment. Resume home medication. Monitor lytes and vitals. DVT and GI prophylaxis. Further recommendations depends on the clinical course of the patient DVT prophylaxis and pain management per primary surgery team
--- NOTE | 2021-05-15 11:51 | P.PN ---
<SarahIris way - Last Filed: 05/15/21 11:49> Subjective Progress Note Date: 05/15/21 CHIEF COMPLAINT: Diverticulosis HISTORY OF PRESENT ILLNESS: Patient is status post colostomy reversal. Patient is reporting abdominal pain. She reports her pain is controlled. She is having flatus. Denies any nausea or vomiting. She does report some discomfort after eating this morning. She's currently on a low fiber diet. She did not like the full liquid diet. She has been up and ambulating. Afebrile. WBC is 5.8 hemoglobin 11.4 PHYSICAL EXAM: VITAL SIGNS: Reviewed. GENERAL: Well-developed in no acute distress. HEENT: No sclera icterus. Extraocular movements grossly intact. Moist buccal mucosa. Head is atraumatic, normocephalic. ABDOMEN: Soft. Nondistended. Incision sites clean dry and intact NEUROLOGIC: Alert and oriented. Cranial nerves II through XII grossly intact. ASSESSMENT: 1. Diverticulitis status post colostomy reversal PLAN: -Continue low fiber diet -Continue pain medication as needed -Encourage patient to ambulate -Encourage patient to use incentive spirometer -Continue GI and DVT prophylaxis Physician Circulation Sales Representative note has been reviewed by physician. Signing provider agrees with the documented findings, assessment, and plan of care. Objective - Vital Signs Vital signs: Vital Signs Temp 98.6 F 05/15/21 08:00 Pulse 70 05/15/21 08:00 Resp 18 05/15/21 08:00 BP 114/60 05/15/21 08:00 Pulse Ox 97 05/15/21 08:00 Intake & Output 05/14/21 05/15/21 05/15/21 18:59 06:59 18:59 Intake Total 670 Output Total 500 Balance 170 Intake: Oral 670 Output: Urine 500 Other: Voiding Method Toilet Toilet Toilet # Voids 10 1 # Bowel Movements 0 - Labs CBC & Chem 7: 05/15/21 10:30 05/14/21 05:59 Labs: Abnormal Lab Results - Last 24 Hours (Table) 05/13/21 05/14/21 05/14/21 Range/Units 07:45 05:59 05:59 RBC 2.93 L (4.10-5.20) X 10*6/uL Hgb 9.5 L (12.0-15.0) g/dL Hct 29.2 L (37.2-46.3) % MCV 99.7 H (80.0-97.0) fL MCH 32.4 H (27.0-32.0) pg MPV 12.4 H (9.5-12.2) fL Chloride 110 H (96-109) mmol/L BUN 7.0 L (9.0-27.0) mg/dL BUN/Creatinine Ratio 11.67 L (12.00-20.00) Ratio Calcium 8.3 L (8.7-10.3) mg/dL Procalcitonin 0.22 H (0.02-0.09) ng/mL 05/15/21 Range/Units 10:30 RBC 3.27 L (4.10-5.20) X 10*6/uL Hgb (12.0-15.0) g/dL Hct 33.0 L (37.2-46.3) % MCV 100.9 H (80.0-97.0) fL MCH (27.0-32.0) pg MPV (9.5-12.2) fL Chloride (96-109) mmol/L BUN (9.0-27.0) mg/dL BUN/Creatinine Ratio (12.00-20.00) Ratio Calcium (8.7-10.3) mg/dL Procalcitonin (0.02-0.09) ng/mL Microbiology - Last 24 Hours (Table) 05/12/21 Unknown Urine Culture - Final Urine,Clean Catch <Renzo Lara - Last Filed: 05/15/21 13:09> Subjective As above. Patient doing well today. Pain improved. Tolerating diet. She is passing flatus. She would like to go home today. We'll discharge. Follow-up one week. Objective - Vital Signs Vital signs: Vital Signs Temp 98.6 F 05/15/21 08:00 Pulse 70 05/15/21 08:00 Resp 18 05/15/21 08:00 BP 114/60 05/15/21 08:00 Pulse Ox 97 05/15/21 08:00 Intake & Output 05/14/21 05/15/21 05/15/21 18:59 06:59 18:59 Intake Total 670 Output Total 500 Balance 170 Intake: Oral 670 Output: Urine 500 Other: Voiding Method Toilet Toilet Toilet # Voids 10 1 # Bowel Movements 0 - Labs CBC & Chem 7: 05/15/21 10:30 05/14/21 05:59 Labs: Abnormal Lab Results - Last 24 Hours (Table) 05/14/21 05/15/21 05/15/21 Range/Units 05:59 10:30 10:30 RBC 3.27 L (3.80-5.40) m/uL Hct 33.0 L (34.0-46.0) % MCV 100.9 H (80.0-100.0) fL Chloride 110 H (96-109) mmol/L BUN 7.0 L (9.0-27.0) mg/dL BUN/Creatinine Ratio 11.67 L (12.00-20.00) Ratio Calcium 8.3 L (8.7-10.3) mg/dL C-Reactive Protein 4.9 H (<1.0) mg/dL Microbiology - Last 24 Hours (Table) 05/12/21 Unknown Urine Culture - Final Urine,Clean Catch Assessment and Plan (1) Diverticulitis Current Visit: No Status: Acute Code(s): K57.92 - DVTRCLI OF INTEST, PART UNSP, W/O PERF OR ABSCESS W/O BLEED SNOMED Code(s): 746404464
--- NOTE | 2021-05-15 14:24 | P.DS ---
<Iris Velasco - Last Filed: 05/15/21 14:18> Providers Expected date of discharge: 05/15/21 Hospital Course: Discharge diagnosis 1. Diverticulitis status post colostomy reversal Hospital course This is a 61-year-old female who underwent Tiago's procedure in September for perforated sigmoid diverticulitis. He is status post colostomy reversal. She is having flatus and did have a bowel movement. She reports her pain is controlled. She is tolerating diet. She is up and ambulating. She is afebrile. She is stable for discharge. Her incision site is clean dry and intact. Please refer to chart for any further details. Physician Bingo Attendant note has been reviewed by physician. Signing provider agrees with the documented findings, assessment, and plan of care. Patient Condition at Discharge: Stable Plan - Discharge Summary Discharge Rx Participant: Yes New Discharge Prescriptions: New HYDROcodone/APAP 5-325MG [Jadwin 5-325] 1 tab PO Q6HR PRN 3 Days #12 tab PRN Reason: Pain metroNIDAZOLE [Flagyl] 500 mg PO Q8HR #9 tab Levofloxacin [Levaquin] 500 mg PO DAILY 3 Days #3 tab Continue Sennosides-Docusate Sodium [Senokot-S] 1 each PO BID Olmesartan [Benicar] 40 mg PO DAILY ALPRAZolam [Xanax] 0.25 mg PO DAILY PRN PRN Reason: ANXIETY Famotidine [Pepcid] 40 mg PO HS amLODIPine [Norvasc] 5 mg PO QAM Sertraline [Zoloft] 50 mg PO DAILY Discontinued Hydrocodone/Acetaminophen [Jadwin 5-325] 1 tab PO Q6HR PRN 3 Days #12 tab PRN Reason: Pain Meloxicam [Mobic] 15 mg PO DAILY Naproxen 500 mg PO BID PRN PRN Reason: Pain Control Discharge Medication List ALPRAZolam [Xanax] 0.25 mg PO DAILY PRN 05/03/21 [History] Famotidine [Pepcid] 40 mg PO HS 05/03/21 [History] Olmesartan [Benicar] 40 mg PO DAILY 05/03/21 [History] Sennosides-Docusate Sodium [Senokot-S] 1 each PO BID 05/03/21 [History] Sertraline [Zoloft] 50 mg PO DAILY 05/03/21 [History] amLODIPine [Norvasc] 5 mg PO QAM 05/03/21 [History] HYDROcodone/APAP 5-325MG [Jadwin 5-325] 1 tab PO Q6HR PRN 3 Days #12 tab 05/15/21 [Rx] Levofloxacin [Levaquin] 500 mg PO DAILY 3 Days #3 tab 05/15/21 [Rx] metroNIDAZOLE [Flagyl] 500 mg PO Q8HR #9 tab 05/15/21 [Rx] Follow up Appointment(s)/Referral(s): Renzo Lara MD [Medical Doctor] - 05/23/21 2:20 pm Frank Park DO [Primary Care Provider] - 05/17/21 3:20 am (bettye kim ) Activity/Diet/Wound Care/Special Instructions: No driving while taking Jadwin No lifting over 10 pounds You may shower. No soaking or tub baths for 2 weeks Very light activity until you are reevaluated at your follow up appointment with your surgeon Diet low fiber Discharge Disposition: HOME SELF-CARE <Renzo Lara - Last Filed: 05/15/21 16:03> Providers Date of admission: 05/11/21 09:37 Attending physician: Renzo Lara Consults: 05/11/21 14:56 Consult Physician Routine Consulting Provider: Alicia Hernandez Consult Reason/Comments: Medical management Do you want consulting provider notified?: Yes Primary care physician: Frank Park - Discharge Diagnosis(es) (1) Diverticulitis Current Visit: No Status: Acute
[2021-05-15] MEDS: LEVOFLOXACIN 500 MG TAB PO SCH (22:38)
[2021-05-16] MEDS: KETOROLAC 15 MG/ML 1 ML VIAL IVP SCH ×2 (06:26→12:44)
[2021-05-16 07:58] VITALS: BP 116/69; PULSE 83; RESP 16; TEMP 98.5
[2021-05-16] MEDS: FAMOTIDINE 20 MG TAB PO SCH (08:16)
[2021-05-16] MEDS: HEPARIN SODIUM,PORCINE/PF 5,000 UNIT/0.5 ML SYRINGE SQ SCH (08:16)
[2021-05-16] MEDS: SERTRALINE 50 MG TAB PO SCH (08:17)
[2021-05-16] MEDS: metroNIDAZOLE 500 MG TAB PO SCH (08:17)
[2021-05-16] MEDS: D5-0.45% NACL WITH KCL 20MEQ/L 1,000 ML IV SCH (08:20)
[2021-05-16 08:25] LABS: Basophils % (A) 0 %; Eosinophils # (A) 0.2 k/uL (0-0.7); Eosinophils % (A) 4 %; HCT 32.3 % (34.0-46.0); HGB 11.1 gm/dL (11.4-16.0); Lymphocytes # (A) 0.9 k/uL (1.0-4.8); Lymphocytes % (A) 22 %; MCH 34.9 pg (25.0-35.0); MCHC 34.3 g/dL (31.0-37.0); MCV 101.7 fL (80.0-100.0); Mean Platelet Volume 9.2; Monocytes # (A) 0.2 k/uL (0-1.0); Monocytes % (A) 6 %; Neutrophils # (A) 2.9 k/uL (1.3-7.7); Neutrophils % (A) 67 %; Platelet Count 252 k/uL (150-450); RBC 3.18 m/uL (3.80-5.40); RDW 12.6 % (11.5-15.5); WBC 4.3 k/uL (3.8-10.6)
[2021-05-16] MEDS: OLMESARTAN 20 MG PO SCH (09:52)
[2021-05-16 09:59] LABS: Appearance,Urine Clear (Clear); Bilirubin,Urine Negative (Negative); Blood,Urine Negative (Negative); Color,Urine Yellow; Glucose,Urine (UA) Negative (Negative); Ketones,Urine Trace (Negative); Leukocyte Esterase,Urine Small (Negative); Mucus,Urine Rare /hpf; Nitrite,Urine Negative (Negative); Protein,Urine Negative (Negative); RBC,Urine <1 /hpf (0-5); Specific Gravity,Urine 1.016 (1.001-1.035); Squamous Epithelial Cell,Urine 1 /hpf (0-4); Urobilinogen,Urine <2.0 mg/dL (<2.0); WBC,Urine <1 /hpf (0-5)
--- NOTE | 2021-05-16 14:24 | P.PN ---
Subjective This is a pleasant 61 years old female with past medical history of GERD, hypertension, cervical cancer in her 20s and history of precancerous polyp and diverticulitis. Presents for colostomy reversal. Today is postoperative day #1 Patient is in distress due to significant nausea, she received Zofran 1 hour ago however she still feeling nausea another dose of Zofran is ordered. Social she is complaining from pain at surgical site which is bothering her but she does not want anymore pain medication otherwise will causes her nausea to worsen. The wound is closed and dressing is in place. No other complaints. No headache or confusion. No chest pain or dyspnea. Vitals are stable and patient is afebrile. Her blood pressure is a slightly elevated at 156/73 but this could be due to her distress from pain labs from last month were reviewed and they were unremarkable including CBC and basic metabolic panel. Creatinine 0.8, sodium 138, potassium 4.6. WBC 7.3, hemoglobin 14.3 and platelet 280 labs from today showing mild leukocytosis of 12.9 K, rest of CBC and BMP is unremarkable. Coronal far as not detected She is kept on D5 half-normal saline at rate of 125 mL/h Patient is a status post colonoscopy on 05/10: There were no neoplastic inflammatory or polypoid lesions throughout the cecum, ascending, transverse, or descending colon. No visible diverticulosis was seen 05/13/2021 Her nausea and abdominal pain are improving however patient still looks in distress and uncomfortable related to her recent surgery with liquid diet c urrently but no bowel movement or passing gases. Yesterday she had a fever of 101.7, was started on antibiotic oral Levaquin and Flagyl, fever today. WBC is back to normal at 8.7. She remains on IV fluids per surgery team We will check C-reactive protein and procalcitonin 05/14/2021 She is doing well every day, with less abdominal pain and today she rated as a 3/10, she tolerates liquid diet but she consumes only little amount because she states she does not like hospital food. She is passing gas but no bowel movement yet. No more fever or leukocytosis. C-reactive protein is elevated but pro- calcitonin is pending She currently states on oral Levaquin and Flagyl. Also urine culture is pending she is also on D5 half-normal saline at 1 25/h 05/15/2021 Patient is on low fiber diet but she developed pain after all the scrambled eggs this morning without nausea. She is passing gas but no bowel movement. No fever and leukocytosis is back to normal. We will recheck C-reactive protein and procalcitonin Continue with oral Levaquin and Flagyl 05/16/2021 Patient could not be discharged yesterday because she could not fill up her narcotic also she had frequent bowel movement about 10-5 which are loose small amount with no abdominal pain or nausea. Patient tolerating diet well, abdominal pain is minimal like 0-1/10 in severity today. No fever. C. diff was checked that was negative. Pro-calcitonin came back normal so antibiotics were stopped Surgical team. Plan to discharge her today, and patient says that her bowel movement becoming smushy and spacing out like once every 6 hours. Patient aware no antibiotics upon discharge and she is aware of her appointment with her PCP tomorrow home she intends to follow up with Objective - Vital Signs Vital signs: Vital Signs Temp 98.5 F 05/16/21 07:56 Pulse 83 05/16/21 07:56 Resp 16 05/16/21 07:56 BP 116/69 05/16/21 07:56 Pulse Ox 97 05/16/21 02:00 Intake & Output 05/15/21 05/16/21 05/16/21 18:59 06:59 18:59 Intake Total 920 Output Total 500 Balance 420 Intake: Oral 920 Output: Urine 500 Other: Voiding Method Toilet Toilet Toilet # Voids 2 # Bowel Movements 7 7 - Exam GENERAL: The patient is alert and oriented x3, not in any acute distress. Well developed, well nourished. HEENT: Pupils are round and equally reacting to light. EOMI. No scleral icterus. No conjunctival pallor. Normocephalic, atraumatic. No pharyngeal erythema. No thyromegaly. CARDIOVASCULAR: S1 and S2 present. No murmurs, rubs, or gallops. PULMONARY: Chest is clear to auscultation, no wheezing or crackles. -ABDOMEN: Soft,, nondistended, normoactive bowel sounds. No palpable organomegaly. Midline vertical wound is closed with a dressing is in place, expected surrounding tenderness MUSCULOSKELETAL: No joint swelling or deformity. EXTREMITIES: No cyanosis, clubbing, or pedal edema. NEUROLOGICAL: Gross neurological examination did not reveal any focal deficits. SKIN: No rashes. no petechiae. - Labs CBC & Chem 7: 05/16/21 08:08 05/14/21 05:59 Labs: Abnormal Lab Results - Last 24 Hours (Table) 05/16/21 05/16/21 Range/Units 08:08 09:45 RBC 3.18 L (3.80-5.40) m/uL Hgb 11.1 L (11.4-16.0) gm/dL Hct 32.3 L (34.0-46.0) % MCV 101.7 H (80.0-100.0) fL Lymphocytes # 0.9 L (1.0-4.8) k/uL Urine Ketones Trace H (Negative) Ur Leukocyte Esterase Small H (Negative) Urine Mucus Rare H (None) /hpf Assessment and Plan Assessment: Admitted for colostomy reversal Suspected intra-abdominal infection Recent history of diverticulitis, status post Lee's procedure for perforated sigmoid diverticulitis leukocytosis, most likely reactive Hypertension History of GERD History of precancerous polyp and diverticulitis Remote history of cervical cancer chronic abdominal pain Chronic back pain and neck pain Plan: This is a pleasant 61 years old female was admitted for reversal of her colostomy Continue with pain management, continue with Zofran as needed as well as she is on Reglan. Discontinue with Flagyl and Levaquin, follow-up with PCP upon discharge labs and medication were reviewed.. Continue same treatment. Continue with symptomatic treatment. Resume home medication. Monitor lytes and vitals. DVT and GI prophylaxis. Further recommendations depends on the clinical course of the patient DVT prophylaxis and pain management per primary surgery team
== END 2021-05-16 15:12 | disposition home or self-care (01) | DRG 346 ==
LOC: 2ORMAIN 09:37 → 4SSUR 15:08
PROVIDERS: ADMIT Surgery; ATTEND Surgery
PROC: 0DSN0ZZ Reposition Sigmoid Colon, Open Approach (ICD-10-PCS; principal; 2021-05-11 11:20)
DX: Z43.3 Encounter for attention to colostomy (principal); F32.9 Major depressive disorder, single episode, unspecified; K21.9 Gastro-esophageal reflux disease without esophagitis; K59.00 Constipation, unspecified; M25.519 Pain in unspecified shoulder; M54.2 Cervicalgia; M54.9 Dorsalgia, unspecified; Z90.710 Acquired absence of both cervix and uterus; Z87.19 Personal history of other diseases of the digestive system; Z85.41 Personal history of malignant neoplasm of cervix uteri; Z85.038 Personal history of other malignant neoplasm of large intestine; Z79.899 Other long term (current) drug therapy; Z79.1 Long term (current) use of non-steroidal anti-inflammatories (NSAID); I10 Essential (primary) hypertension; G89.29 Other chronic pain; F41.9 Anxiety disorder, unspecified; F17.200 Nicotine dependence, unspecified, uncomplicated; D72.829 Elevated white blood cell count, unspecified; R11.0 Nausea; J34.2 Deviated nasal septum
CPT/HCPCS: 71045; 80048; 81001; 84145; 85025; 86140; 86850; 86900; 86901; 87086; 87324; 87635; 88304; 94760

== ENCOUNTER → 2021-08-15 | Outpatient (CLI) | payer OTHER ==
--- NOTE | 2021-08-17 08:34 | XR ---
EXAMINATION TYPE: XR foot complete LT DATE OF EXAM: 08/15/2021 COMPARISON: NONE HISTORY: Pain TECHNIQUE: Three views are submitted. FINDINGS: The osseous structures are intact. There is no acute fracture or dislocation. Mild hypertrophic ch callie of the first MTP. IMPRESSION: 1. No acute fracture or dislocation. If symptoms persist, follow-up exam in 7 to 10 days could be ob tained.
== END | disposition home or self-care (01) ==
LOC: RADXRYALE 16:24
PROVIDERS: ATTEND Physician Assistant
DX: M79.672 Pain in left foot (principal)

== ENCOUNTER 2021-11-09 21:27 | Emergency (ER) | payer OTHER ==
[2021-11-09 21:54] VITALS: BP 139/81; PULSE 84; RESP 20; TEMP 99
--- NOTE | 2021-11-09 22:54 | ED ---
General Adult HPI - General Source: patient, family, RN notes reviewed Mode of arrival: ambulatory Limitations: no limitations - History of Present Illness -: days(s) (4) Location: abdomen Quality: constant, other (cramping waves) Consistency: constant Improves with: none Worsens with: none Associated Symptoms: nausea/vomiting (no vomiting) Treatments Prior to Arrival: other (miralax, MOM, magic bullet x2) <Ramiro Redd - Last Filed: 11/10/21 02:37> <Odilia Damico - Last Filed: 11/19/21 00:18> - General Chief complaint: Abdominal Pain Stated complaint: Constipated Time Seen by Provider: 11/09/21 22:40 - History of Present Illness Initial comments: 61-year-old female, alert and oriented 4 presents with 4 days of abdominal pain. She has a history of diverticulitis with a bowel resection. She states that she has had 4 days of constipation. She has tried multiple sdxj-bfx-vpsarfc and prescription medications and has only had small hard stool today. She is nauseated but denies vomiting. No fevers. She states the pain is cramping in nature and comes in waves (Ramiro Redd) - Related Data Home Medications Medication Instructions Recorded Confirmed ALPRAZolam [Xanax] 0.25 mg PO DAILY PRN 05/03/21 05/04/21 Famotidine [Pepcid] 40 mg PO HS 05/03/21 05/04/21 Olmesartan [Benicar] 40 mg PO DAILY 05/03/21 05/11/21 Sennosides-Docusate Sodium 1 each PO BID 05/03/21 05/04/21 [Senokot-S] Sertraline [Zoloft] 50 mg PO DAILY 05/03/21 05/04/21 amLODIPine [Norvasc] 5 mg PO QAM 05/03/21 05/04/21 Previous Rx's Medication Instructions Recorded HYDROcodone/APAP 5-325MG [[place] 1 tab PO Q6HR PRN 3 Days #12 tab 05/15/21 5-325] Allergies Allergy/AdvReac Type Severity Reaction Status Date / Time losartan Allergy Rash/Hives Verified 11/09/21 21:52 amoxicillin trihydrate AdvReac BLISTERS Verified 11/09/21 21:52 [From Augmentin] ON FACE cephalexin monohydrate AdvReac vaginal Verified 11/09/21 21:52 [From Keflex] infection lisinopril AdvReac Rash/Hives Verified 11/09/21 21:52 Penicillins AdvReac vaginal Verified 11/09/21 21:52 infection potassium clavulanate AdvReac vaginal Verified 11/09/21 21:52 [From Augmentin] infection sulfamethoxazole AdvReac vaginal Verified 11/09/21 21:52 [From Bactrim] infection trimethoprim [From Bactrim] AdvReac vaginal Verified 11/09/21 21:52 infection,HIVES Review of Systems ROS Other: All systems not noted in ROS Statement are negative. <Ramiro Redd - Last Filed: 11/10/21 02:37> ROS Other: All systems not noted in ROS Statement are negative. <Odilia Damico - Last Filed: 11/19/21 00:18> ROS Statement: Those systems with pertinent positive or pertinent negative responses have been documented in the HPI. Past Medical History Past Medical History: Cancer, Hypertension Additional Past Medical History / Comment(s): Hx cervical cancer in her 20's, PRE CANCER COLON POLYPS AND DIVERTICULITIS. NECK AND SHOULDER PAIN History of Any Multi-Drug Resistant Organisms: None Reported Past Surgical History: Back Surgery, Bowel Resection, Hysterectomy Additional Past Surgical History / Comment(s): colostomy reversal Past Anesthesia/Blood Transfusion Reactions: No Reported Reaction Past Psychological History: Anxiety, Depression Smoking Status: Current every day smoker Past Alcohol Use History: None Reported Past Drug Use History: None Reported - Past Family History Mother Family Medical History: Deep Vein Thrombosis (DVT) Additional Family Medical History / Comment(s): DVT IN LEG <Ramiro Redd - Last Filed: 11/10/21 02:37> General Exam Limitations: no limitations General appearance: alert, in no apparent distress Eye exam: Present: normal appearance ENT exam: Present: normal exam, normal oropharynx, mucous membranes moist Neck exam: Present: normal inspection, full ROM. Absent: tenderness, meningismus, lymphadenopathy Respiratory exam: Present: normal lung sounds bilaterally. Absent: respiratory distress, wheezes, rales, rhonchi, stridor, accessory muscle use, decreased breath sounds Cardiovascular Exam: Present: regular rate GI/Abdominal exam: Present: soft, tenderness (diffuse). Absent: distended Extremities exam: Present: normal capillary refill. Absent: pedal edema Back exam: Present: normal inspection. Absent: tenderness, CVA tenderness (R), CVA tenderness (L), rash noted Neurological exam: Present: alert, oriented X3 Psychiatric exam: Present: normal affect, normal mood Skin exam: Present: warm, dry, intact, normal color. Absent: cyanosis, diaphoretic <Ramiro Redd - Last Filed: 11/10/21 02:37> Course Vital Signs 11/09/21 21:52 Temperature 99.0 F Pulse Rate 84 Respiratory 20 Rate Blood Pressure 139/81 O2 Sat by Pulse 96 Oximetry Medical Decision Making - Lab Data Result diagrams: 11/10/21 00:12 11/10/21 00:12 <Ramiro Redd - Last Filed: 11/10/21 02:37> - Lab Data Result diagrams: 11/10/21 00:12 11/10/21 00:12 <Odilia Damico - Last Filed: 11/19/21 00:18> - Medical Decision Making 61-year-old female presents with 4 days of abdominal pain and constipation. States tried multiple medications at home and only had a small hard stool today. Nausea but denies vomiting or fevers. X-ray shows no sign of intestinal sobstruction or pneumoperitoneum. Fecal pattern is normal. Nonacute abdomen. Patient continues to have Abdominal Pain and states does have a history of diverticulitis. CT the abdomen and pelvis with contrast shows mild constipation. There is a small hiatal hernia. Liver is intact bile ducts are not dilated. Gallbladder is contracted. Spleen is intact is no evidence of pancreatic mass. Evidence of clips from appendectomy. There is retained fecal matter in the large bowel. Labs show no evidence of leukocytosis. Vital signs are stable. Patient was given a mineral oil enema in the ER. Magnesium citrate which she opted to take at home. She was directed to return to the emergency room with any new or concerning symptoms including increased pain, vomiting or inability t o pass gas. Follow-up with the primary care doctor next week. Patient is agreeable to this plan of care. Case discussed with Dr. Damico (Ramiro Redd) I was available for consultation in the emergency department. The history and physical exam were done by the midlevel provider. I was consulted for this patients care. I reviewed the case with the midlevel provider and based on their presentation of the patient, I agree with the assessment, medical decision making and plan of care as documented. Chart was dictated using Kle[employer] dictation software. Attempts were made to correct any dictation errors however some typographical errors may persist. (Odilia Damico) - Lab Data Lab Results 11/10/21 11/10/21 11/10/21 Range/Units 00:12 00:12 00:12 WBC 8.0 (3.8-10.6) k/uL RBC 4.57 (3.80-5.40) m/uL Hgb 14.8 (11.4-16.0) gm/dL Hct 45.8 (34.0-46.0) % MCV 100.1 H (80.0-100.0) fL MCH 32.4 (25.0-35.0) pg MCHC 32.3 (31.0-37.0) g/dL RDW 13.3 (11.5-15.5) % Plt Count 291 (150-450) k/uL MPV 8.5 Neutrophils % 61 % Lymphocytes % 28 % Monocytes % 8 % Eosinophils % 1 % Basophils % 0 % Neutrophils # 4.9 (1.3-7.7) k/uL Lymphocytes # 2.2 (1.0-4.8) k/uL Monocytes # 0.6 (0-1.0) k/uL Eosinophils # 0.1 (0-0.7) k/uL Basophils # 0.0 (0-0.2) k/uL PT (9.0-12.0) sec INR (<1.2) APTT (22.0-30.0) sec Sodium 137 (137-145) mmol/L Potassium 4.5 (3.5-5.1) mmol/L Chloride 106 (98-107) mmol/L Carbon Dioxide 23 (22-30) mmol/L Anion Gap 8 mmol/L BUN 17 (7-17) mg/dL Creatinine 0.75 (0.52-1.04) mg/dL Est GFR (CKD-EPI)AfAm >90 (>60 ml/min/1.73 sqM) Est GFR (CKD-EPI)NonAf 87 (>60 ml/min/1.73 sqM) Glucose 100 H (74-99) mg/dL Plasma Lactic Acid Ramses 0.8 (0.7-2.0) mmol/L Calcium 9.4 (8.4-10.2) mg/dL Total Bilirubin 0.5 (0.2-1.3) mg/dL AST 22 (14-36) U/L ALT 14 (4-34) U/L Alkaline Phosphatase 167 H (38-126) U/L Total Protein 7.1 (6.3-8.2) g/dL Albumin 4.2 (3.5-5.0) g/dL Amylase 57 (30-110) U/L Lipase 120 (23-300) U/L 11/10/21 Range/Units 00:35 WBC (3.8-10.6) k/uL RBC (3.80-5.40) m/uL Hgb (11.4-16.0) gm/dL Hct (34.0-46.0) % MCV (80.0-100.0) fL MCH (25.0-35.0) pg MCHC (31.0-37.0) g/dL RDW (11.5-15.5) % Plt Count (150-450) k/uL MPV Neutrophils % % Lymphocytes % % Monocytes % % Eosinophils % % Basophils % % Neutrophils # (1.3-7.7) k/uL Lymphocytes # (1.0-4.8) k/uL Monocytes # (0-1.0) k/uL Eosinophils # (0-0.7) k/uL Basophils # (0-0.2) k/uL PT 10.0 (9.0-12.0) sec INR 0.9 (<1.2) APTT 24.6 (22.0-30.0) sec Sodium (137-145) mmol/L Potassium (3.5-5.1) mmol/L Chloride (98-107) mmol/L Carbon Dioxide (22-30) mmol/L Anion Gap mmol/L BUN (7-17) mg/dL Creatinine (0.52-1.04) mg/dL Est GFR (CKD-EPI)AfAm (>60 ml/min/1.73 sqM) Est GFR (CKD-EPI)NonAf (>60 ml/min/1.73 sqM) Glucose (74-99) mg/dL Plasma Lactic Acid Ramses (0.7-2.0) mmol/L Calcium (8.4-10.2) mg/dL Total Bilirubin (0.2-1.3) mg/dL AST (14-36) U/L ALT (4-34) U/L Alkaline Phosphatase (38-126) U/L Total Protein (6.3-8.2) g/dL Albumin (3.5-5.0) g/dL Amylase (30-110) U/L Lipase (23-300) U/L Disposition Is patient prescribed a controlled substance at d/c from ED?: No Time of Disposition: 02:02 <Ramiro Redd - Last Filed: 11/10/21 02:37> <Odilia Damico - Last Filed: 11/19/21 00:18> Clinical Impression: Constipation, Abdominal pain Disposition: HOME SELF-CARE Condition: Good Instructions (If sedation given, give patient instructions): Constipation (ED), Abdominal Pain (ED) Additional Instructions: Increase your fluid intake. Follow-up with the primary care doctor on Friday. Return to the emergency room with any new or concerning symptoms including increased pain, fevers or inability to have bowel movement or pass gas. Referrals: Bri Sandoval, PAC [REFERRING] - 1-2 days
--- NOTE | 2021-11-09 23:05 | XR ---
EXAMINATION TYPE: XR KUB DATE OF EXAM: 11/09/2021 COMPARISON: 08/30/2020 HISTORY: Abdominal pain TECHNIQUE: 2 views FINDINGS: There is no sign of intestinal obstruction or pneumoperitoneum. Fecal pattern is normal. Neena ng bases are clear. There are no pathologic calcifications over the kidneys. IMPRESSION: Nonacute abdomen. No adverse change.
[2021-11-09] MEDS ORDERED: SODIUM CHLORIDE 0.9% 1,000 ML IV STA (23:26)
[2021-11-09] MEDS ORDERED: HYDROmorphone 0.5 MG/0.5 ML SYRINGE IVP STA ×2 (23:26→23:35)
[2021-11-10 00:23] LABS: Basophils % (A) 0 %; Eosinophils # (A) 0.1 k/uL (0-0.7); Eosinophils % (A) 1 %; HCT 45.8 % (34.0-46.0); HGB 14.8 gm/dL (11.4-16.0); Lymphocytes # (A) 2.2 k/uL (1.0-4.8); Lymphocytes % (A) 28 %; MCH 32.4 pg (25.0-35.0); MCHC 32.3 g/dL (31.0-37.0); MCV 100.1 fL (80.0-100.0); Mean Platelet Volume 8.5; Monocytes # (A) 0.6 k/uL (0-1.0); Monocytes % (A) 8 %; Neutrophils # (A) 4.9 k/uL (1.3-7.7); Neutrophils % (A) 61 %; Platelet Count 291 k/uL (150-450); RBC 4.57 m/uL (3.80-5.40); RDW 13.3 % (11.5-15.5)
--- NOTE | 2021-11-10 00:38 | CT ---
EXAMINATION TYPE: CT abdomen pelvis w con DATE OF EXAM: 11/10/2021 COMPARISON: 12/07/2020 HISTORY: abd pain CT DLP: 881 mGycm Automated exposure control for dose reduction was used. CONTRAST: Performed with IV Contrast, patient injected with 100 mL of Isovue 300. Images obtained from the diaphragm to the floor the pelvis with IV contrast. Lung bases show interstitial density and subsegmental atelectasis. Heart size is normal. There is no pericardial effusion. There is small hiatal hernia. Liver is intact. The bile ducts are not dilated. Gallbladder is contracted. Spleen is intact. Stomach is intact. There is no pancreatic mass. There is no adrenal mass. Kidneys show satisfactory contrast opacification. There is no hydronephrosi s. The ureters are not dilated. Delayed images show normal renal excretion. Bladder is almost empty. There is no pelvic mass. There is no free fluid in the pelvis. There is prev ious surgery at the rectosigmoid junction. There are clips apparently from appendectomy. There is ret ained fecal material in the large bowel. There is no ascites or free air. The lumbar vertebra have no rmal alignment. There is old L3 compression fracture with some fragment extension into the spinal can al and narrowing and spinal stenosis. The bony pelvis is intact. IMPRESSION: Mild constipation. Old L3 compression fracture with spinal stenosis and no change. Small hiatal hernia. Mild subsegmental atelectasis at the lung bases. This appears new compared to ol d exam.
[2021-11-10] MEDS ORDERED: MINERAL OIL 133 ML ENEMA RECTAL STA (00:53)
[2021-11-10 01:04] LABS: ALT 14 U/L (4-34); AST 22 U/L (14-36); African American GFR (CKD) >90 (>60 ml/min/1.73 sqM); Albumin 4.2 g/dL (3.5-5.0); Alkaline Phosphatase 167 U/L (38-126); Amylase 57 U/L (30-110); Anion Gap 8 mmol/L; Blood Urea Nitrogen 17 mg/dL (7-17); Calcium 9.4 mg/dL (8.4-10.2); Carbon Dioxide 23 mmol/L (22-30); Chloride 106 mmol/L (98-107); Glucose 100 mg/dL (74-99); Lipase 120 U/L (23-300); Non-African American GFR(CKD) 87 (>60 ml/min/1.73 sqM); Potassium 4.5 mmol/L (3.5-5.1); Sodium 137 mmol/L (137-145); Total Bilirubin 0.5 mg/dL (0.2-1.3); Total Protein 7.1 g/dL (6.3-8.2)
[2021-11-10 01:10] LABS: INR 0.9 (<1.2); Partial Thromboplastin Time 24.6 sec (22.0-30.0)
[2021-11-10] MEDS ORDERED: MAGNESIUM CITRATE 296 ML BOTTLE PO ONE (02:07)
== END 2021-11-10 02:38 | disposition home or self-care (01) ==
LOC: EC 21:27
DX: K59.00 Constipation, unspecified (principal); R10.84 Generalized abdominal pain; I10 Essential (primary) hypertension; F32.A Depression, unspecified; F41.9 Anxiety disorder, unspecified; F17.200 Nicotine dependence, unspecified, uncomplicated; Z79.899 Other long term (current) drug therapy
CPT/HCPCS: 36415; 80053; 82150; 83605; 83690; 85025; 85610; 85730; 74018; 74177; 99284; 96374; 96376; 96361; J1170; Q9967

== ENCOUNTER → 2023-12-05 | Outpatient (CLI) | payer MEDICARE, OTHER ==
--- NOTE | 2023-12-05 10:21 | US ---
EXAMINATION TYPE: US Aorta Screening DATE OF EXAM: 12/05/2023 COMPARISON: CT 11/10/2021 CLINICAL INDICATION: Female, 63 years old with history of [id number] FAMIY HISTORY OF ISCHEM HEART DISEASE R918 O; Current smoker, hx hypertension. Hx of thoracic aneurysm per order. Thoracic aorta not evaluated on abdominal aorta ultrasounds. TECHNIQUE: Multiple sonographic images of the abdominal aorta are obtained. FINDINGS: EXAM MEASUREMENTS: Abdominal Aorta: Proximal: 2.3 x 2.6 cm Mid: 1.9 x 1.9 cm Distal: 1.8 x 1.7 cm Bifurcation: Right Iliac: Obscured Left Iliac: Obscured [employer] P[employer]ER NOTES: Exam is limited due to gas*. Iliac arteries were obscured. IMPRESSION: No evidence for abdominal aortic aneurysm.
== END | disposition home or self-care (01) ==
LOC: RADUSWWP 09:45
PROVIDERS: ATTEND Family Medicine
DX: R91.8 Other nonspecific abnormal finding of lung field (principal); I10 Essential (primary) hypertension; E78.2 Mixed hyperlipidemia; Z82.49 Family history of ischemic heart disease and other diseases of the circulatory system; F17.200 Nicotine dependence, unspecified, uncomplicated
CPT/HCPCS: 76706

== ENCOUNTER → 2024-07-08 | Outpatient (CLI) | payer MEDICARE ==
--- NOTE | 2024-07-08 15:48 | CT ---
EXAMINATION TYPE: CT heart w calcium score DATE OF EXAM: 07/08/2024 COMPARISON: No direct comparisons CLINICAL INDICATION: Female, 64 years old with history of I10 ESSENTIAL HTN; TECHNIQUE: Prospective Gating was used. Slice thickness: 3mm. Density threshold (HU): 130, Pixel threshold: 3, Algorithm: discrete. CT DLP: 67.[address] CTDI: 3.43 mGy Automated exposure control for dose reduction was used. FINDINGS: CT CALCIUM SCORING Coronary calcium is a marker for plaque (fatty deposits) in a blood vessel or atherosclerosis (harden ing of the arteries). The presence and amount of calcium detected in a coronary artery by the CT sca n, indicates the presence and amount of atherosclerotic plaque. These calcium deposits appear years before the development of heart disease symptoms such as chest pain and shortness of breath. A calcium score is computed for each of the coronary arteries based upon the volume and density of th e calcium deposits. This can be referred to as your calcified plaque burden. It does not correspond directly to the percentage of narrowing in the artery but does correlate with the severity of the un derlying coronary atherosclerosis. RESULTS Region: LM Calcium Score ([place]): 492.93 Volume (mm3): 371.45 Mass (g): 123.82 Region: RCA Calcium Score ([place]): 0 Volume (mm3): 0 Mass (g): 0 Region: LAD Calcium Score ([place]): 0 Volume (mm3): 0 Mass (g): 0 Region: CX Calcium Score ([place]): 11.46 Volume (mm3): 11.46 Mass (g): 3.82 Region: PDA Calcium Score ([place]): 0 Volume (mm3): 0 Mass (g): 0 Total: Calcium Score ([place]): 504.39 Volume (mm3): 382.91 Mass (g): [id number] TOTAL CALCIUM SCORE: 504.39 Atherosclerotic calcification of the aorta. Small hiatal hernia. Mild centrilobular emphysematous edmundo nges. Linear scarring within the right middle lobe and lingula. IMPRESSION: Calcium Score: 401 or higher Implication: Extensive atherosclerotic plaque Risk of Coronary Artery Disease: High likelihood of at least one significant coronary narrowing. CALCIUM SCORE IMPLICATION RISK OF C ORONARY ARTERY DISEASE 0 No identifiable plaque Very low, generally less than 5% 1-10 Minimal identifiable plaque Very unlikely, less than 10% 11-100 Definite, at least mild atherosclerotic plaque Mild or m inimal coronary narrowings likely 101-400 Definite, at least moderate atherosclerotic plaque Mild coronary ar angie disease highly likely, significant narrowing possible 401 or Higher Extensive atherosclerotic plaque High lik elihood of at least one significant coronary narrowing [facility], , 07/08/2024 3:46 PM
== END | disposition home or self-care (01) ==
LOC: RADCTMAIN 13:25
PROVIDERS: ATTEND Family Medicine
DX: I10 Essential (primary) hypertension (principal); I25.10 Atherosclerotic heart disease of native coronary artery without angina pectoris; K44.9 Diaphragmatic hernia without obstruction or gangrene
CPT/HCPCS: 75571

== ENCOUNTER → 2024-07-08 | Outpatient (CLI) | payer MEDICARE ==
--- NOTE | 2024-07-15 12:48 | MM ---
Reason for Exam: Screening (asymptomatic). Last mammogram was performed 3 year(s) and 11 month(s) ago. Patient History: Menarche at age 15. First Full-Term at age 22. Left ovary removed at age 53. Right ovary removed at age 53. Hysterectomy at age 53. Postmenopausal. Endometrial cancer, age 36. Risk Values: Chantel 5 year model risk: 1.3%. NCI Lifetime model risk: 5.5%. Prior Study Comparison: 10/27/2001 Bilateral Screening Mammogram, [facility]. 08/03/2019 Bilateral Screening Mammogram, [facility]. 08/09/2020 Bilateral Screening Mammogram, [facility]. Tissue Density: The breasts are almost entirely fatty. Findings: Analyzed By CAD. Right breast: There is no suspicious group of microcalcifications or new suspicious mass. Left breast: There is no suspicious group of microcalcifications or new suspicious mass. Overall Assessment: Negative, BI-RAD 1 Management: Screening Mammogram of both breasts in [address] [facility] will attempt to contact patient to return for supplemental views and ultrasound if indicated. Patient should continue monthly self-breast exams. A clinical breast exam by your physician is recommended on an annual basis. This exam should not preclude additional follow-up of suspicious palpable abnormalities. Note on Chantel scores and lifetime risk: 1. A Chantel score greater than 3% is considered moderate risk. If this is the case, consider specialist referral to assess eligibility for a risk reducing agent. 2. If overall lifetime risk for the development of breast cancer is 20% or higher, the patient may qualify for future screening with alternating mammogram and breast MRI. [facility], , 07/15/2024 12:39 PM. Electronically signed and approved by: Ibrahima Tineo DO
== END | disposition home or self-care (01) ==
LOC: RADMAMWWP 13:49
PROVIDERS: ATTEND Family Medicine
DX: Z12.31 Encounter for screening mammogram for malignant neoplasm of breast (principal); Z90.722 Acquired absence of ovaries, bilateral; Z78.0 Asymptomatic menopausal state; R92.313 Mammographic fatty tissue density, bilateral breasts
CPT/HCPCS: 77067

== ENCOUNTER → 2024-08-06 | Outpatient (CLI) | payer MEDICARE ==
--- NOTE | 2024-08-06 16:09 | US ---
EXAMINATION TYPE: US arterial LE multi level DATE OF EXAM: 08/06/2024 2:32 PM COMPARISONS: None. CLINICAL INDICATION: Female, 64 years old with history of M79.661 PAIN IN RIGHT LOWER LEG M79.662 JANE N IN LL; cramping in left calf when walking, has to stop and sit to relieve pain TECHNIQUE: Systolic pressures were taken of the upper and lower extremity arteries with ankle-brachia l indices and toe brachial indices calculated bilaterally. History of: Smoker: y Hypertension: y Diabetic: n Hyperlipidemia: y TIA/CVA: n Previous Vascular Surgery: n CAD: n NC: n Vascular Ulcers: n Claudication: yes left calf Gangrene: n FINDINGS: Doppler Waveforms: Right: Multiphasic Left: Monophasic Brachial Artery systolic pressure: Right: 127 Left: 128 Posterior Tibial artery systolic pressure: Right: 139 Left: 93 Dorsalis Pedis artery systolic pressure: Right: 134 Left: 81 Ankle-Brachial Indices: Right: 1.1 Left: 0.7 (Vessel hardening > 1.4; Normal 0.9 - 1.4, Moderate 0.7 - 0.9, Severe 0.5-0.7) (Normal > 0.6; Mild 0.35 - 0.59, Moderate 0.12 - 0.34, Severe <0.12) IMPRESSION: Moderate left peripheral vascular disease and normal right brachial indices [facility], , 08/06/2024 4:06 PM
--- NOTE | 2024-08-06 16:15 | US ---
EXAMINATION TYPE: US venous doppler duplex LE BI DATE OF EXAM: 08/06/2024 2:33 PM COMPARISON: NONE CLINICAL INDICATION: Female, 64 years old with history of M79.661 PAIN IN RIGHT LOWER LEG M79.662 JANE N IN LL; pain in left calf, no h/o dvt TECHNIQUE: The lower extremity deep venous system is examined utilizing real time linear array sonog santana with graded compression, color doppler sonography, and spectral doppler. SIDE PERFORMED: Bilateral FINDINGS: VESSELS IMAGED: Common Femoral Vein Deep Femoral Vein Greater Saphenous Vein * Femoral Vein Popliteal Vein Small Saphenous Vein * Proximal Calf Veins (* superficial vessels) Right Leg: Negative for DVT, Color Doppler imaging shows patency of the vessels. Spectral waveforms are within normal limits. Left Leg: Negative for DVT, Color Doppler imaging shows patency of the vessels. Spectral waveforms a re within normal limits. IMPRESSION: No ultrasound evidence for deep venous thrombosis. [facility], , 08/06/2024 4:13 PM
== END | disposition home or self-care (01) ==
LOC: RADUSWWP 13:49
PROVIDERS: ATTEND Family Medicine
DX: I73.9 Peripheral vascular disease, unspecified (principal); I10 Essential (primary) hypertension; Z87.891 Personal history of nicotine dependence
CPT/HCPCS: 93923; 93970